=== PATIENT | male | born 1965 | race Caucasian/White ===

== ENCOUNTER 2022-03-16 15:38 | Outpatient (REF) | payer BC, SELFPAY ==
[2022-03-16 19:27] LABS: Alanine Aminotransferase 21 U/L (0-40); Albumin Level 4.1 g/dL (3.5-5.0); Alkaline Phosphatase 71 U/L (39-117); Anion Gap 11 (12-20); Aspartate Amino Transferase 28 U/L (5-37); Bilirubin Total 0.7 mg/dL (0.0-1.0); Blood Urea Nitrogen 9 mg/dL (9-16); Calcium 8.7 mg/dL (8.4-10.2); Carbon Dioxide 26 mmol/L (22-29); Chloride 107 mmol/L (96-108); Cholesterol 206 mg/dL; Estimated Glomerular Filt Rate > 60; Glucose Random 92 mg/dL (60-115); HDL Cholesterol 47 mg/dL; LDL Cholesterol Calculated 145 mg/dl; Potassium 4.6 mmol/L (3.3-5.1); Sodium 139 mmol/L (135-145); Total Protein 6.3 g/dL (6.5-8.0); Triglycerides 73 mg/dL
[2022-03-22 12:03] LABS: Free Prostate Spec Ag 0.4 ng/mL; Percent Free Prostate Spec Ag 27 % (calc) (>25); Prostate Specific Ag Total 1.5 ng/mL (< OR = 4.0)
== END 2022-03-16 15:39 | disposition home or self-care (01) ==
LOC: HO.MANLDS 15:38
PROVIDERS: Visit Provider Physician Assistant
DX: Z00.00 Encounter for general adult medical examination without abnormal findings (principal); Z12.5 Encounter for screening for malignant neoplasm of prostate
CPT/HCPCS: 36415; 80053; 80061; 84154

== ENCOUNTER 2023-05-22 08:51 | Outpatient (REF) | payer BC, SELFPAY ==
[2023-05-22 13:50] LABS: MANUAL DIFF FLAG NO
[2023-05-22 13:58] LABS: Basophils Absolute Auto 0.1 X10*3/uL (0.0-0.2); Basophils Percent Auto 1.2 % (0-2); Eosinophils Absolute Auto 0.1 X10*3/uL (0.0-0.4); Eosinophils Percent Auto 1.4 % (0-4); Hematocrit 48.2 % (42.0-52.0); Hemoglobin 16.4 g/dl (14.0-18.0); Imm Gran Abs Auto 0.01 X10*3/uL (0.00-0.03); Imm Gran Pct Auto 0.2 % (0.0-0.4); Lymphocytes Absolute Auto 1.3 X10*3/uL (1.2-4.9); Lymphocytes Percent Auto 31.7 % (20-40); Mean Corpuscular Hemoglobin 30.5 pg (27.0-33.0); Mean Corpuscular Volume 89.6 fL (80.0-98.0); Mean Platelet Volume 8.6 fL (9.4-12.4); Monocytes Absolute Auto 0.5 X10*3/uL (0.1-1.2); Monocytes Percent Auto 12.3 % (2-11); Neutrophils Absolute Auto 2.2 x10*3/uL (2.0-8.3); Neutrophils Percent Auto 53.2 % (45-73); Platelet Count 249 X10*3/uL (160-400); Red Blood Count 5.38 X10*6/uL (4.60-5.80); Red Cell Distribution Width 13.2 % (11.0-16.0); White Blood Count 4.2 X10*3/uL (4.8-10.8)
[2023-05-22 14:11] LABS: Alanine Aminotransferase 20 U/L (0-40); Albumin Level 4.1 g/dL (3.5-5.0); Alkaline Phosphatase 69 U/L (39-117); Anion Gap 10 (12-20); Aspartate Amino Transferase 25 U/L (5-37); Bilirubin Total 0.7 mg/dL (0.0-1.0); Blood Urea Nitrogen 10 mg/dL (9-16); Calcium 8.9 mg/dL (8.4-10.2); Carbon Dioxide 27 mmol/L (22-29); Chloride 106 mmol/L (96-108); Cholesterol 234 mg/dL (<200); Estimated Glomerular Filt Rate > 60; Glucose Random 97 mg/dL (60-115); HDL Cholesterol 45 mg/dL (>40); LDL Cholesterol Calculated 167 mg/dL (<100); Sodium 139 mmol/L (135-145); Total Protein 6.9 g/dL (6.5-8.0); Triglycerides 110 mg/dL (<150)
[2023-05-22 14:18] LABS: Estimated Average Glucose 108 mg/dL; Hemoglobin A1C 151.4403 umol/L; Hemoglobin A1c % 5.4 % (<6.0)
== END 2023-05-22 08:52 | disposition home or self-care (01) ==
LOC: HO.MANLDS 08:51
PROVIDERS: Visit Provider Physician Assistant
DX: Z00.00 Encounter for general adult medical examination without abnormal findings (principal); Z12.5 Encounter for screening for malignant neoplasm of prostate; Z13.6 Encounter for screening for cardiovascular disorders
CPT/HCPCS: 36415; 80053; 80061; 83036; 84153; 85025

== ENCOUNTER 2024-11-11 08:50 | Outpatient (AMB) | payer BC, SELFPAY ==
--- OUTSIDE RECORDS SUMMARY | 2024-11-11 09:16 | XMS_ITS | Encounter Summary ---
Author Organization [facility] Address [address] [place] [address] [place] [address] Phone Care Team Providers Care Lab Support Service Tech Name Role Phone Haider Wolf DO Primary Care Provider JanineHaider christiansen DO Unavailable Encounter Details Date Type Department Care Team (Latest Contact Info) Description 06/03/2019 Transcribe Orders Virtual Department 30 [place] [address] Filippo Pace MD 30 [place] [address] [email or web address] Abnormal weight loss (Primary Dx) Social History Tobacco Use Types Packs/Day Years Used Date Smoking Tobacco: Never Smokeless Tobacco: Never Alcohol Use Standard Drinks/Week Comments No 0 (1 standard drink = 0.6 oz pur e alcohol) Sex and Gender Information Value Date Recorded Sex Assigned at Male 05/08/2017 8:51 AM EST Legal Sex Male 9:42 PM EDT Gender Identity Male 05/08/2017 8:51 AM EST Sexual Orientation Straight 05/08/2017 8: 51 AM EST documented as of this encounter Plan of Treatment Upcoming Encounters Date Type Department Care Team (Late st Contact Info) Description 12/31/2024 11:30 AM EDT Office Visit [facility] [address] [place] [address] 3rd Floor, [address] [place] [address] Kyree Castillo MD 22 [facility], [address] [place] [address] [id number] documented as of this encounter Results * XR CHEST PA AND LATERAL 2 VIEWS (06/04/2019 10:36 AM EDT) Anatomical Region Laterality Modality Chest Radiographic Nurys ging 06/04/2019 11:0 0 AM EDT Impressions 06/04/2019 11:02 AM EDT No acute pulmonary process. POS: [id number] Narrative 06/04/2019 11:02 AM EDT XR CHEST PA AND LATERAL 2 VIEWS HISTORY: Abnormal weight loss. COMPARISON: Multiple prior chest x-rays, the most recent of which is dated 06/07/2018.. FINDINGS: Lines and Tubes: None. Cardiomediastinum: The cardiac silhouette is normal in size. The mediastinal and hilar contours are normal. Lungs and Pleural: The lungs are clear. No pneumothorax or pleural effusion. Bones and Soft Tissues: No acute abnormality. Procedure Note Denise Gil MD - 06/04/2019 XR CHEST PA AND LATERAL 2 VIEWS HISTORY: Abnormal weight loss. COMPARISON: Multiple prior chest x-rays, the most recent of which isdated 06/07/2018.. FINDINGS: Lines and Tubes: None. Cardiomediastinum: The cardiac silhouette is normal in size. Themediastinal and hilar contours are normal. Lungs and Pleural: The lungs are clear. No pneumothorax or pleuraleffusion. Bones and Soft Tissues: No acute abnormality. IMPRESSION: No acute pulmonary process. POS: [id number] Filippo Pace MD IMG XR CHEST Final Result documented in this encounter Visit Diagnoses Diagnosis Abnormal weight loss- Primary Loss of weight Abnormal weight loss Loss of weight documented in this encounter Care Teams Lab Support Service Tech Relationship Specialty Start Date End Date Haider Wolf DO PCP - General 01/12/17 Haider Wolf DO [address] [place] [address] [email or web address] Insurance Assigned Provider 07/28/1805/06 documented as of this encounter Additional Source Comments The information contained in this document represents components of the legal health record. It is not the complete legal health record.[facility]
== END 2024-11-11 09:06 | disposition home or self-care (01) ==
LOC: HO.HMGAL 08:50
PROVIDERS: PCP Internal Medicine; Visit Provider Registered Nurse Emergency
DX: J30.89 Other allergic rhinitis (principal)
CPT/HCPCS: 95117; 95165

== ENCOUNTER 2024-11-27 08:25 | Outpatient (AMB) | payer BC, SELFPAY ==
--- OUTSIDE RECORDS SUMMARY | 2024-11-27 08:50 | XMS_ITS | Encounter Summary ---
Author Organization [facility] Address [address] [place] [phone] Phone Care Team Providers Care Assistant Warehouse Manager Name Role Phone Haider Wolf DO Primary Care Provider [phone] JanineHaider christiansen DO Unavailable Reason for Referral * MRI/CAT Scan - Closed Specialty Diagnoses / Procedures Referred By Yunior boyce Referred To Contact Radiology Diagnoses Abnormal weight loss Abdominal pain, unspecified abdominal location Procedures CT Abdomen/Pelvis Filippo Pace MD Phone: tel: fax: [email or web address] Referral ID Status Reason Start Date Expiration Date Visits Re quested Visits Authorized [id number] Closed 06/06/2019 10/03/2019 1 1 Encounter Details Date Type Department Care Team (Latest Contact Info) Description 06/07/2019 Transcribe Orders Virtual Department 30 [place] [address] Filippo Pace MD [address] [place] [id number] [email or web address] GERD without esophagitis (Primary Dx); Abnormal weight loss; Abdominal pain, unspecified abdominal location Social History Tobacco Use Types Packs/Day Years [...] Description 12/31/2024 11:30 AM EDT Office Visit [facility] [address] [place] [address] 3rd Floor, [address] [place] [address] Kyree Castillo MD 22 [facility], [address] [place] [address] [email or web address] documented as of this encounter Results * CT ABDOMEN/PELVIS WITH CONTRAST (09/04/2019 3:54 PM EDT) Anatomical Region Laterality Modality Abdomen, Pelvis Computed Tomogra phy 09/04/2019 4:02 PM EDT Impressions 09/04/2019 4:15 PM EDT Chronic hiatal hernia, hepatic hemangiomas, and hepatic and renal cysts. Diverticulosis without evidence of active diverticulitis or other acute intra-abdominal or retroperitoneal pathology. Stable basilar pulmonary nodules. No other significant interval change from 09/21/2017 apparent. TOTAL CTDIvol: 5.50 mGy POS - [id number] Narrative 09/04/2019 4:15 PM EDT COMPARISON: 09/21/2017 CT TECHNIQUE: Helical scanning was performed from the dome of the liver through the inferior pubic rami following intravenous and oral administration of contrast material. Sagittal and coronal reformats generated. Automated exposure control utilized. FINDINGS: There are grossly stable cavernous hemangiomas in the left and right hepatic lobes and a left hepatic lobe cyst. No new hepatic cyst or mass detected. No bile duct dilatation, perihepatic ascites, or choledocholithiasis detected. Portal vein is grossly patent. Spleen and adrenal glands are within normal limits in appearance. There are chronic bilateral renal cortical cysts. No renal mass, hydronephrosis, or perinephric stranding have developed in the interim. Bladder is relatively collapsed but otherwise stable in appearance. Prostate grossly stable. There is a small chronic hiatal hernia. No evidence of small bowel obstruction. Appendix unremarkable in appearance. Moderate amount of colonic stool and gas with scattered descending diverticula but no surrounding inflammatory infiltration to imply acute diverticulitis free fluid collections are seen in the dependent portion of the pelvis. No evidence of aortoiliac aneurysm. No pathologically enlarged mesenteric, para-aortic, iliac chain, or inguinal lymph nodes have developed. No bowel containing abdominal wall hernia. No focal infiltrate or pleural effusion detected at the lung bases. There is a stable 4 mm left lower lobe nodule and 2 mm right lower lobe nodule. Stable upper endplate central compression deformity, possibly representing a large Schmorl's node, at the L4 level with chronic degenerative disc changes present at the lumbosacral junction. No acute traumatic or destructive skeletal lesion apparent. Procedure Note Jf Moya MD - 09/04/2019 COMPARISON: 09/21/2017 CT TECHNIQUE: Helical scanning was performed from the dome of the liverthrough the inferior pubic rami following intravenous and oraladministration of contrast material. Sagittal and coronal reformatsgenerated. Automated exposure control utilized. FINDINGS: There are grossly stable cavernous hemangiomas in the left and righthepatic lobes and a left hepatic lobe cyst. No new hepatic cyst or massdetected. No bile duct dilatation, perihepatic ascites, orcholedocholithiasis detected. Portal vein is grossly patent. Spleen and adrenal glands are within normal limits in appearance. Thereare chronic bilateral renal cortical cysts. No renal mass, hydronephrosis,or perinephric stranding have developed in the interim. Bladder isrelatively collapsed but otherwise stable in appearance. Prostate grosslystable. There is a small chronic hiatal hernia. No evidence of small bowelobstruction. Appendix unremarkable in appearance. Moderate amount ofcolonic stool and gas with scattered descending diverticula but nosurrounding inflammatory infiltration to imply acute diverticulitis freefluid collections are seen in the dependent portion of the pelvis. No evidence of aortoiliac aneurysm. No pathologically enlarged mesenteric,para-aortic, iliac chain, or inguinal lymph nodes have developed. No bowelcontaining abdominal wall hernia. No focal infiltrate or pleural effusion detected at the lung bases. Thereis a stable 4 mm left lower lobe nodule and 2 mm right lower lobenodule. Stable upper endplate central compression deformity, possibly representinga large Schmorl's node, at the L4 level with chronic degenerative discchanges present at the lumbosacral junction. No acute traumatic ordestructive skeletal lesion apparent. IMPRESSION: Chronic hiatal hernia, hepatic hemangiomas, and hepatic and renal cysts.Diverticulosis without evidence of active diverticulitis or other acuteintra-abdominal or retroperitoneal pathology. Stable basilar pulmonarynodules. No other significant interval change from 09/21/2017 apparent. TOTAL CTDIvol: 5.50 mGy POS - [id number] Filippo Pace MD IMG CT ABD/PELVIS Final Resu lt documented in this encounter Visit Diagnoses Diagnosis GERD without esophagitis- Primary Esophageal reflux Abnormal weight loss Loss of weight Abdominal pain, unspecified abdominal location Abnormal weight loss Loss of weight Abdominal pain, unspecified abdominal location documented in this encounter Care Teams Assistant Warehouse Manager Relationship Specialty Start Date End Date Haider Wolf DO [email or web address] PCP - General 01/12/17 Haider Wolf DO [address] [place] [address] Insurance Assigned Provider 07/28/1805/06 documented as of this encounter Additional Source Comments The information contained in this document represents components of the legal health record. It is not the complete legal health record.[facility]
--- OUTSIDE RECORDS SUMMARY | 2024-11-27 08:50 | XMS_ITS | Encounter Summary ---
Author Organization [facility] Address [address] [place] [address] [place] [address] Phone Care Team Providers Care Concrete Boom Pump Operator Name Role Phone Haider Wolf DO Primary Care Provider [phone] Haider Wolf DO Unavailable Encounter Details Date Type Department Care Team (Latest Contact Info) Description 11/01/2021 Transcribe Orders Virtual Department 30 [place] [address] Lacey Mason PA [address] [place] [address] [place] [address] Osteoporosis, unspecified osteoporosis type, unspecified pathological fracture presence (Primary Dx) Social History Tobacco Use Types [...] Description 12/31/2024 11:30 AM EDT Office Visit [facility] [address] [place] [address] 3rd Floor, [address] [place] [address] Kyree Castillo MD [address] [place] [address], [address] [place] [address] [email or web address] documented as of this encounter Results * BD DXA AXIAL (SPINE) WITH HIP (05/25/2022 9:14 AM EST) Anatomical Region Laterality Modality Bone Density Bone Density 05/25/2022 12:1 4 PM EST Impressions 05/25/2022 12:15 PM EST Osteopenia Reference Information: The T-score is the number of standard deviations above or below the standard which is normal for young adults at their peak bone mineral density. The World Health Organization (WHO) interprets the T-scores as follows: Above -1 Normal bone density Between -1 and -2.5 Osteopenia Equal to / or below -2.5 Osteoporosis As a practical clinical guideline, osteopenia may be graded as follows: Mild -1 through -1.5 Moderate -1.6 through -2.0 Severe -2.1 through -2.4 References: 1. NIH Osteoporosis and Related Bone Diseases http://www.osteo.org 2. International Society for Clinical Densitometry http://www.iscd.org 3. National Osteoporosis Foundation http://www.nof.org Narrative 05/25/2022 12:15 PM EST STUDY: DUAL ENERGY X-RAY ABSORPTIOMETRY / DXA REASON FOR EXAM: Male, 56 years old. TECHNIQUE: Bone Mineral Density (BMD) measurements of the lumbar spine and left hip were obtained. COMPARISON: 01/13/2016 FINDINGS: L1-L4 T score: -1.9. This corresponds to osteopenia This represents a 0.9 % increase in bone density compared with prior exam from 01/13/2016. Left femoral neck T score: -2.3. This corresponds to osteopenia Left total hip T score: -1.3. This corresponds to osteopenia This represents a -7 % decrease in bone density compared with prior exam from 01/13/2016. FRAX score: 10 year risk of major osteoporotic fracture 7.9%, 10 year risk of hip fracture 1.6% Procedure Note Agapito Taylor MD - 05/25/2022 STUDY: DUAL ENERGY X-RAY ABSORPTIOMETRY / DXA REASON FOR EXAM: Male, 56 years old. TECHNIQUE: Bone Mineral Density (BMD) measurements of the lumbar spineand left hip were obtained. COMPARISON: 01/13/2016 FINDINGS: L1-L4 T score: -1.9. This corresponds to osteopenia This represents a 0.9 % increase in bone density compared with prior examfrom 01/13/2016. Left femoral neck T score: -2.3. This corresponds to osteopenia Left total hip T score: -1.3. This corresponds to osteopenia This represents a -7 % decrease in bone density compared with prior examfrom 01/13/2016. FRAX score: 10 year risk of major osteoporotic fracture 7.9%, 10 year riskof hip fracture 1.6% IMPRESSION: Osteopenia Reference Information: The T-score is the number of standard deviations above or below thestandard which is normal for young adults at their peak bone mineraldensity. The World Health Organization (WHO) interprets the T-scores asfollows: Above -1 Normal bone density Between -1 and -2.5 Osteopenia Equal to / or below -2.5 Osteoporosis As a practical clinical guideline, osteopenia may be graded as follows: Mild -1 through -1.5 Moderate -1.6 through -2.0 Severe -2.1 through -2.4 References: 1. NIH Osteoporosis and Related Bone Diseases http://www.osteo.org 2. International Society for Clinical Densitometry http://www.iscd.org 3. National Osteoporosis Foundation http://www.nof.org Lacey DALEY IMG BD BONE DENSITY DEXA Fi nal Result documented in this encounter Visit Diagnoses Diagnosis Osteoporosis, unspecified osteoporosis type, unspecified pathological fracture presence- Primary Osteoporosis, unspecified osteoporosis type, unspecified pathological fracture presence documented in this encounter Care Teams Concrete Boom Pump Operator Relationship Specialty Start Date End Date Haider Wolf DO PCP - General 01/12/17 Haider Wolf DO [address] [place] [address] Insurance Assigned Provider 07/28/1805/06 documented as of this encounter Additional Source Comments The information contained in this document represents components of the legal health record. It is not the complete legal health record.[facility]
--- OUTSIDE RECORDS SUMMARY | 2024-11-27 08:50 | XMS_ITS | Encounter Summary ---
Author Organization [facility] Address [address] [place] [address] Phone Care Team Providers Care Belt Loop Machine Operator Name Role Phone Haider Wolf DO Primary Care Provider [phone] JanineHaider christiansen DO Unavailable Encounter Details Date Type Department Care Team (Late st Contact Info) Description 09/03/2021 Procedure Pass [facility] Endoscopy Admitting Dept Virtual Department [address] [place] [phone] Social History Tobacco Use Types Packs/Day Years [...] Description 12/31/2024 11:30 AM EDT Office Visit [facility] [address] [place] [address] 3rd Floor, [address] [place] [address] Kyree Castillo MD 22 [facility], [address] [address] documented as of this encounter Visit Diagnoses Not on filedocumented in this encounter Care Teams Belt Loop Machine Operator Relationship Specialty Start Date End Date Haider Wolf DO [email or web address] PCP - General 01/12/17 Haider Wolf DO [address] [place] [address] [email or web address] Insurance Assigned Provider 07/28/1805/06 documented as of this encounter Additional Source Comments The information contained in this document represents components of the legal health record. It is not the complete legal health record.[facility]
--- OUTSIDE RECORDS SUMMARY | 2024-11-27 08:50 | XMS_ITS | Encounter Summary ---
Author Organization [facility] Address [address] [place] [address] Phone Care Team Providers Care Parachute Accessories Attacher Name Role Phone Haider Wolf DO Primary Care Provider JanineHaider christiansen DO Unavailable Encounter Details Date Type Department Care Team (Late Contact Info) Description 11/15/2017 Procedure Pass [facility] Endoscopy Admitting Dept Virtual Department [address] [place] [address] Social History Tobacco Use Types Packs/Day Years [...] Encounters Date Type Department Care Team (Late Contact Info) Description 12/31/2024 11:30 AM EDT Office Visit [facility] [address] [place] [address] 3rd Floor, [address] [place] [address] Kyree Castillo MD 22 [facility], [address] [address] documented as of this encounter Visit Diagnoses Not on filedocumented in this encounter Care Teams Parachute Accessories Attacher Relationship Specialty Start Date End Date Haider Wolf DO [email or web address] PCP - General 01/12/17 Haider Wolf DO [address] [place] [address] [email or web address] Insurance Assigned Provider 07/28/1805/06 documented as of this encounter Additional Source Comments The information contained in this document represents components of the legal health record. It is not the complete legal health record.[facility]
--- OUTSIDE RECORDS SUMMARY | 2024-11-27 08:50 | XMS_ITS | Encounter Summary ---
Author Organization [facility] Address [address] [place] [address] Phone Care Team Providers Care Travel Counselor Name Role Phone Haider Wolf DO Primary Care Provider [phone] Encounter Details Date Type Department Care Team (Late st Contact Info) Description 05/03/2024 Procedure Pass [facility] Endoscopy Admitting Dept Virtual Department [address] [place] [address] Social History Tobacco Use Types Packs/Day Years Used Date Smoking Tobacco: Never Smokeless Tobacco: Never Alcohol Use Standard Drinks/Week Comments No 0 (1 standard drink = 0.6 oz pur e alcohol) Education Answer Date Recorded Are you interested in more education? Not on suzanna e 07/22/2022 Are you concerned about learning? Not on file 07/22/2022 No 07/22/2022 No 07/22/2022 Digital Access Answer Date Recorded No 08/22/2022 No 08/22/2022 Reliable internet access at home? Not on file 08/22/2022 Device with a working camera? Not on file Intimate Partner Violence Answer Date R ecorded Are you denied basic needs s uch as food, clothing, or medical care? No 05/03/2024 In the past 12 months have y ou been in a relationship with a person who hurts, threatens, or tries to control you? No 05/03/2024 Are you denied basic needs s uch as food, clothing, or medical care? No 05/03/2024 In the past 12 months have y ou been in a relationship with a person who hurts, threatens, or tries to control you? No 05/03/2024 Sex and Gender Information Value Date Recorded Sex Assigned at Male 05/08/2017 8:51 AM EST Legal Sex Male 9:42 PM EDT Gender Identity Male 05/08/2017 8:51 AM EST Sexual Orientation Straight 05/08/2017 8: 51 AM EST documented as of this encounter Plan of Treatment Upcoming Encounters Date Type Department Care Team (Late st Contact Info) Description 12/31/2024 11:30 AM EDT Office Visit [facility] [address] [place] [address] 3rd Floor, [address] [place] [address] Kyree Castillo MD 22 [facility], [address] [place] [address] [email or web address] documented as of this encounter Visit Diagnoses Not on filedocumented in this encounter Care Teams Travel Counselor Relationship Specialty Start Date End Date Haider Wolf DO PCP - General 01/12/17 documented as of this encounter Additional Source Comments The information contained in this document represents components of the legal health record. It is not the complete legal health record.[facility]
--- OUTSIDE RECORDS SUMMARY | 2024-11-27 08:50 | XMS_ITS | Encounter Summary ---
Author Organization [facility] Address [address] [place] [address] [address] [place] [address] Phone Care Team Providers Care Telephone Plant Power Operator Name Role Phone Haider Wolf DO Primary Care Provider [phone] Haider Wolf DO Unavailable Encounter Details Date Type Department Care Team (Latest Contact Info) Description 06/03/2019 Transcribe Orders Virtual Department [address] [place] [address] Filippo Pace MD [address] [place] [address] [email or web address] Abnormal weight loss (Primary Dx) Social History [...] Description 12/31/2024 11:30 AM EDT Office Visit [facility] [address] [place] [address] 3rd Floor, [address] [place] [address] Kyree Castillo MD [address] [place] [address], [address] [place] [address] [email or web address] documented as of this encounter Results * XR CHEST PA AND LATERAL 2 VIEWS (06/04/2019 10:36 AM EDT) Anatomical Region Laterality Modality Chest Radiographic Nurys ging 06/04/2019 11:0 0 AM EDT Impressions 06/04/2019 11:02 AM EDT No acute pulmonary process. POS: [id number] Narrative 06/04/2019 11:02 AM EDT XR CHEST [...] abnormality. IMPRESSION: No acute pulmonary process. POS: [id number] Filippo Pace MD IMG XR CHEST Final Result documented in this encounter Visit Diagnoses Diagnosis Abnormal weight loss- Primary Loss of weight Abnormal weight loss Loss of weight documented in this encounter Care Teams Telephone Plant Power Operator Relationship Specialty Start Date End Date Haider Wolf DO [email or web address] PCP - General 01/12/17 Haider Wolf DO [address] [place] [address] [email or web address] Insurance Assigned Provider 07/28/1805/06 documented as of this encounter Additional Source Comments The information contained in this document represents components of the legal health record. It is not the complete legal health record.[facility]
--- OUTSIDE RECORDS SUMMARY | 2024-11-27 08:50 | XMS_ITS | Clinical Summary ---
Author Organization [facility] Address [address] [place] [address] Phone Care Team Providers Care Leather Craftsman Name Role Phone Fortunato Hawkins DO Primary Care Provider [phone] Allergies Active Allergy Reactions Criticality Noted Date Comments Diazepam 10/13/2022 Naphazo Hcl-Hpm-Ps 80-Zn Sulf 05/02/2024 Other Reaction(s): Not available Medications esomeprazole (NEXIUM) 20 MG capsule Take 20 mg by mouth daily before breakfast. Active latanoprost (XALATAN) 0.005 % ophthalmic solution Active multivit-mins no.63/iron/foli c (M-VIT ORAL) Take by mouth. Active ARNUITY ELLIPTA 200 mcg/actuation DsDvIndications :Asthma,Medicat ion refill USE 1 INHALATION ORALLY DAILY 3 each 3 2 Active albuterol 90 mcg/actuation inhaler Inhale 2 puffs into the lungs every 4 (four) hours as needed for wheezing or shortness of breath/dyspnea. 18 g 11 2 Active budesonide (RHINOCORT AQUA) 32 mcg/actuation nasal spray SHAKE LIQUID AND USE 1 SPRAY IN EACH NOSTRIL EVERY DAY 3 Active fluticasone propionate (FLONASE) 50 mcg/actuation nasal spray 1 spray by Nasal route 2 (two) times a day. 48 g 3 4 Active amLODIPine (NORVASC) 2.5 MG tablet Take 1 tablet by mouth every morning. Active ibuprofen (ADVIL,MOTRIN) 200 MG tablet Take 400 mg by mouth every 6 (six) hours as needed for pain (specific location in comments). Active fluticasone propion-salmete roL (ADVAIR DISKUS) 250-50 mcg/dose DISKUS INHALE 1 DOSE BY MOUTH TWICE DAILY. RINSE MOUTH AFTER USE Active montelukast (SINGULAIR) 10 mg tablet Take 1 tablet by mouth daily. Active Active Problems Problem Noted Date Diagnosed Date Allergic rhinitis 08/29/2022 Sleep apnea 07/25/2022 Overview (05/02/2024): I have mild to severe sleep apnea. Anxiety disorder 06/14/2022 Patent foramen ovale 06/14/2022 Overview (05/02/2024): diagnosed about a decade ago Essential hypertension 05/06/2020 Asthma 05/26/2017 Overview (05/02/2024): Anna Gastroesophageal reflux disease 05/26/2017 Glaucoma 05/26/2017 Osteoporosis 05/26/2017 Overview (05/02/2024): Vit D deficiency > now with osteopenia Stricture of esophagus 05/26/2017 Overview (05/02/2024): Graciela Laura Encounters Date Type Department Care Team Description 09/05/2024 Telephone [facility] [address], [address] [place], [place] [phone] Kyree Castillo MD 09/02/2024 Telephone [facility] [address], [address] [place] [address] Taniya Leos from Last 3 Months Social History Tobacco Use Types Packs/Day Years Used Date Smoking Tobacco: Never Smokeless Tobacco: Never Tobacco Cessation:Counseling Given: Not Answered Alcohol Use Standard Drinks/Week Comments No 0 [...] Orientation Straight 05/08/2017 8: 51 AM EST Last Filed Vital Signs Vital Sign Reading Time Taken Comments Blood Pressure 120/76 06/12/2024 11:07 AM EDT Pulse 91 06/12/2024 11:07 AM EDT Temperature 36.2 C (97.2 F) 05/03/2024 9:20 AM EST Respiratory Rate 17 05/03/2024 9:34 AM EST Oxygen Saturation 96% 06/12/2024 11:07 AM EDT Inhaled Oxygen Concentration - - Weight 84.8 kg (187 lb) 06/12/2024 11:07 AM EDT Height 172.7 cm (5' 8 ) 06/12/2024 11:07 AM EDT Body Mass Index 28.43 06/12/2024 11:07 AM EDT Plan of Treatment Upcoming Encounters Date Type Department Care Team (Late st Contact Info) Description 12/31/2024 11:30 AM EDT Office Visit [facility] [address] [place] [address] [address]rd Floor, [address] [place] [address] Kyree Castillo MD [address] [place] [address], [address] [place] [address] [email or web address] Health Maintenance Due Date Last Done Comments DEPRESSION SCREENING 1975 HEPATITIS C SCREENING 12/09/1981 HIV ONE-TIME SCREENING (18-65 YEARS) 12/09/1981 PNEUMOCOCCAL VACCINES (50+ years) (1 of 2 - PCV) 12/09/1982 COLOGUARD 12/09/2008 FIT TEST 12/09/2008 FOBT 12/09/2008 SIGMOIDOSCOPY 12/09/2008 VIRTUAL COLONOSCOPY 12/09/2008 ZOSTER VACCINES (1 of 2) 12/09/2013 Adult Td,Tdap Booster 11/05/2022 11/05/2012 RSV VACCINE (1 - Risk 60-74 years 1-dose series) 2023 INFLUENZA VACCINE (#1) 2024 , 01/14/2023, 01/12/2022, Additional history exists COVID-19 VACCINE ( - 2024- season) 2024 04/05/2021, 06/02/2020, 05/11/2020 BLOOD PRESSURE 12/13/2024 06/12/2024 SCREENING FOR DIABETES 10/13/2025 10/13/2022 LIPID PANEL 03/16/2027 03/16/2022, 03/16/2022 COLONOSCOPY 01/29/2031 01/29/2021 COLORECTAL CANCER SCREENING 01/29/2031 SMOKING STATUS SCREENING (Once After 26 Yrs) Completed 06/12/2024 HEPATITIS A VACCINES Aged Out No long er eligible based on patient's age to complete this topic HIB VACCINES Aged Out No longer eligi ble based on patient's age to complete this topic MENINGOCOCCAL VACCINES (ACWY) Aged Out No longer eligible based on patient's age to complete this topic MENINGOCOCCAL VACCINES (B) Aged Out N o longer eligible based on patient's age to complete this topic Medical Devices Not on file Procedures Procedure Name Priority Date/Time Associated Diagnosis Comments ENDOSCOPY, COLON 01/29/2021 12:1 9 PM EDT from Last 3 Months or Most Recently Relevant to Health Maintenance Results * ENDOSCOPY, COLON (01/29/2021 12:19 PM EDT) Narrative Transcriptions Filippo Laura MD - 01/29/2021 12:19 PM EDT Patient Name: Main Patriciaulet Attending MD:: FILIPPO LAURA MD Procedure Date: 01/29/2021 12:19 PM Date of : 1965 Age: 55 Admit Type: Outpatient Gender: Male Room: [facility] Referring MD: FORTUNATO HAWKINS DO Exam Type: Colonoscopy Indications: High risk colon cancer surveillance: Personalhistory of colonic polyps, Last colonoscopy: 2015 Medications: Monitored Anesthesia Care Procedure: Informed consent was obtained from the patient after discussion of the indications, limitations, alternatives, benefits, and risks of the procedure. Risks specifically discussed include but are not limited to medication reactions, missed lesions, bleeding, perforation, or the need for emergentsurgery. Throughout the procedure, the patient's bloodpressure, pulse, end-tidal CO2, and oxygen saturations were monitored continuously. The Olympus adult variable colonoscope [id number] #1was introduced through the anus and advanced to the terminal ileum. The colonoscopy was performedwithout difficulty. The patient tolerated the procedurewell. The quality of the bowel preparation was good. Complications: No immediate complications. Estimated blood loss:None. Findings: The perianal and digital rectal examinations were normal. A few small-mouthed diverticula were found in the sigmoid colon. The rectum, recto-sigmoid colon, descending colon, splenic flexure, transverse colon, hepatic flexure, ascending colon, cecum, appendiceal orifice,ileocecal valve, ileum, rectum (on retroflexion) and ascending colon (on retroflexion) appeared normal. Impression: - Diverticulosis in the sigmoid colon. - The rectum, recto-sigmoid colon, descending colon, splenic flexure, transverse colon, hepatic flexure, ascending colon, cecum, appendiceal orifice,ileocecal valve and terminal ileum are normal. - No specimens collected. Recommendation: - Discharge patient to home. - High fiber diet. - Continue present medications. - Repeat colonoscopy in 7 years for surveillance. - You have diverticulosis so please eat a high fiber diet. FILIPPO LAURA MD 01/29/2021 12:36:11 PM This report has been signed electronically. Number of Addenda: 0 Note Initiated On: 01/29/2021 12:19 PM Procedure Code(s): --- Professional --- 40422, Colonoscopy, flexible; diagnostic, including collection of specimen(s) by brushing or washing, when performed (separateprocedure) --- Technical --- 77962, Colonoscopy, flexible; diagnostic, including collection of specimen(s) by brushing or washing, when performed (separateprocedure) Diagnosis Code(s): --- Professional --- Z86.010, Personal history of colonic polyps K57.30, Diverticulosis of large intestine without perforation or abscess without bleeding --- Technical --- Z86.010, Personal history of colonic polyps K57.30, Diverticulosis of large intestine without perforation or abscess without bleeding CPT copyright 2018 [employer]. All rights reserved. The codes documented in this report are preliminary and upon neonatal nurse practitioner reviewmay be revised to meet current compliance requirements. Procedure Date: 01/29/2021 12:19:48 PM [address] [place] [address] us Fortunato A Bigda DO GI PROCEDURE ORDERABLES Final Re sult from Last 3 Months or Most Recently Relevant to Health Maintenance Insurance CROSS OUT OF STATE PPO CROSS OUT OF [facility] PPO OUT OF [facility] PPO BLUE CROSS OUT OF STATE PPO BLUE CROSS OUT OF STATE PPO CROSS OUT OF STATE PPO Care Teams Leather Craftsman Relationship Specialty Start Date End Date Fortunato Hawkins DO [email or web address] PCP - General 01/12/17 Additional Source Comments The information contained in this document represents components of the legal health record. It is not the complete legal health record.[facility]
--- OUTSIDE RECORDS SUMMARY | 2024-11-27 08:50 | XMS_ITS | Encounter Summary ---
Author Organization [facility] Address [address] [place] [address] [place] [address] Phone Care Team Providers Care Correction Officer Supervisor Name Role Phone Haider Wolf DO Primary Care Provider [phone] JanineHaider christiansen DO Unavailable Encounter Details Date Type Department Care Team (Late st Contact Info) Description 09/25/2020 Procedure Pass [facility], Ct Scan - [address] [address] Social History Tobacco Use Types Packs/Day Years [...] Description 12/31/2024 11:30 AM EDT Office Visit [facility] [address] [place] [address] [address]rd Floor, [address] [place] [address] Kyree Castillo MD 22 [facility], [address] [place] [address] documented as of this encounter Visit Diagnoses Not on filedocumented in this encounter Care Teams Correction Officer Supervisor Relationship Specialty Start Date End Date Haider Wolf DO PCP - General 01/12/17 Haider Wolf DO [address] [place] [address] [email or web address] Insurance Assigned Provider 07/28/1805/06 documented as of this encounter Additional Source Comments The information contained in this document represents components of the legal health record. It is not the complete legal health record.[facility]
--- OUTSIDE RECORDS SUMMARY | 2024-11-27 08:50 | XMS_ITS | Encounter Summary ---
Author Organization [facility] Address [address] [place] [address] [place] [address] Phone Care Team Providers Care Construction Producer Name Role Phone Haider Wolf DO Primary Care Provider [phone] Haider Wolf DO Unavailable Encounter Details Date Type Department Care Team (Late Contact Info) Description 09/05/2017 Ancillary Orders Virtual Department [address] [place] [address] Criselda Ernestina, TASNEEM 54 Gurpreet Francois. Ortiz. [address] [place] [address] Other specified disorders of the male genital organs Social History Tobacco Use Types Packs/Day Years [...] Description 12/31/2024 11:30 AM EDT Office Visit [facility] [address] [place] [address] [address]rd Floor, [address] [place] [address] Kyree Castillo MD [address], [address] [place] [address] [email or web address] documented as of this encounter Results * US SCROTUM AND TESTICLES (09/07/2017 2:38 PM EDT) Anatomical Region Laterality Modality Pelvis, Scrotum/Testes, Testes U ltrasound 09/07/2017 4:35 PM EDT Impressions 09/07/2017 4:38 PM EDT Relatively small overall testicular size but otherwise essentially normal scrotal ultrasound. No source of pain is apparent. Tiny simple bilateral hydroceles are unlikely to be clinically significant. POS [id number] Narrative 09/07/2017 4:38 PM EDT No comparison Both testicles are relatively small. The right measures about 8 cc and the left about 9 cc but both are homogeneous in echotexture without any focal masses and with normal, symmetrical blood flow. Neither epididymis is enlarged nor are any epididymal masses or hyperemia present. Very small simple bilateral hydroceles. No varicocele. Procedure Note Catalino Lawler MD - 09/07/2017 No comparison Both testicles are relatively small. The right measures about 8 cc and theleft about 9 cc but both are homogeneous in echotexture without any focalmasses and with normal, symmetrical blood flow. Neither epididymis is enlarged nor are any epididymal masses or hyperemiapresent. Very small simple bilateral hydroceles. No varicocele. IMPRESSION: Relatively small overall testicular size but otherwise essentially normalscrotal ultrasound. No source of pain is apparent. Tiny simple bilateralhydroceles are unlikely to be clinically significant. POS [id number] June Criselda BOATENG IMG US SCROTUM/PENIS Final R esult documented in this encounter Visit Diagnoses Diagnosis Other specified disorders of the male genital organs Other specified disorders of the male genital organs documented in this encounter Care Teams Construction Producer Relationship Specialty Start Date End Date Haider Wolf DO [email or web address] PCP - General 01/12/17 Haider Wolf GianniDO [address] [place] [address] [email or web address] Insurance Assigned Provider 07/28/1805/06 documented as of this encounter Additional Source Comments The information contained in this document represents components of the legal health record. It is not the complete legal health record.[facility]
--- OUTSIDE RECORDS SUMMARY | 2024-11-27 08:50 | XMS_ITS | Encounter Summary ---
Author Organization [facility] Address [address] [place] [address] Phone Care Team Providers Care Superintendent Ammunition Storage Name Role Phone Haider Wolf DO Primary Care Provider [phone] JanineHaider christiansen DO Unavailable Encounter Details Date Type Department Care Team (Late st Contact Info) Description 02/12/2019 Procedure Pass [facility] Endoscopy Admitting Dept Virtual Department [address] [place] [address] Social History Tobacco Use Types Packs/Day Years [...] Description 12/31/2024 11:30 AM EDT Office Visit [facility] [address] [place] [address] [address]rd Floor, [address] [place] [address] Kyree Castillo MD 22 [facility], [address] [address] documented as of this encounter Visit Diagnoses Not on filedocumented in this encounter Care Teams Superintendent Ammunition Storage Relationship Specialty Start Date End Date Haider Wolf DO [email or web address] PCP - General 01/12/17 Haider Wolf DO [address] [place] [address] [email or web address] Insurance Assigned Provider 07/28/1805/06 documented as of this encounter Additional Source Comments The information contained in this document represents components of the legal health record. It is not the complete legal health record.[facility]
--- OUTSIDE RECORDS SUMMARY | 2024-11-27 08:50 | XMS_ITS | Encounter Summary ---
Author Organization [facility] Address [address] [place] [address] [place] [address] Phone Care Team Providers Care Customer Engagement Manager Name Role Phone Haider Wolf DO Primary Care Provider Haider Wolf DO Unavailable Encounter Details Date Type Department Care Team (Latest Contact Info) Description 05/27/2019 Transcribe Orders [facility] [address] [place] [address] Filippo Pace MD 10 [facility] 2 [place] [address] [email or web address] Loss of weight (Primary Dx); Gastroesophageal reflux disease without esophagitis Social History Tobacco Use Types Packs/Day Years [...] Description 12/31/2024 11:30 AM EDT Office Visit [facility] [address] [place] [address] 3rd Floor, [address] [place], [place] [phone] Kyree Castillo MD [address] [place] [address], [address] [place] [address] [email or web address] documented as of this encounter Results * TSH (05/27/2019 1:51 PM EST) Pathologist [facility] TSH 1.37 0.27 - 4.20 uIU/mL [facility] Blood 05/27/2019 1:51 PM EST 05/27/2019 1:57 PM EST us Filippo Pace MD LAB BLOOD ORDERABLES Final R esult [address] [address] * C-Reactive Protein (05/27/2019 1:51 PM EST) [facility] C REACTIVE PROTEIN <0.3 0.0 - 4.0 mg/L [facility] Blood 05/27/2019 1:51 PM EST 05/27/2019 1:57 PM EST us Filippo Pace MD LAB BLOOD ORDERABLES Final R esult [address] [address] * (ABNORMAL) Comprehensive metabolic panel (05/27/2019 1:51 PM EST) [facility] SODIUM 140 133 - 146 mmol/L [facility] POTASSIUM 3.5 3.3 - 5.1 mmol/L [facility] CHLORIDE 104 96 - 108 mmol/L [facility] CO2 24 21 - 35 mmol/L [facility] BUN 8 6 - 19 mg/dL [facility] CREATININE 1.10 0.5 - 1.5 mg/dL [facility] GLUCOSE 125(H) 70 - 99 mg/dL [facility] ALBUMIN 4.6 3.9 - 4.8 g/dL [facility] TOTAL PROTEIN 7.5 6.5 - 8.0 g/dL [facility] CALCIUM 9.3 8.4 - 10.3 mg/dL [facility] ALKALINE PHOSPHATASE 60 39 - 117 U/L [facility] TOTAL BILIRUBIN 0.6 0.0 - 1.2 mg/dL [facility] AST 34 0 - 37 U/L [facility] ALT 17 0 - 40 U/L [facility] GLOBULIN 2.9 1 - 4.8 g/dL [facility] EGFR 75 >59 mL/min/1.7 3m2 [facility] Comment:If patient is black, multiply result by 1.159. Estimated glomerular filtration rate calculated using the CKD-EPI equation. ANION GAP 16 10 - 20 mmol/L [facility] Blood 05/27/2019 1:51 PM EST 05/27/2019 1:57 PM EST us Filippo Pace MD LAB BLOOD ORDERABLES Final R esult Performing Organization Address City/State/[facility] Co de Phone Number [address] [address] * CBC (05/27/2019 1:51 PM EST) WBC 5.57 4.00 - 11.00 K/uL [facility] Comment:Note Reference Range updates to all CBC and Differential results. RBC 5.22 4.23 - 5.82 M/uL [facility] HGB 16.3 13.4 - 17.5 g/dL [facility] Comment:Note updated Referen ce Ranges for all CBC and Differential results. HCT 46.5 37.0 - 51.0 % [facility] PLT 289 140 - 430 K/uL [facility] MCV 89.1 78.0 - 97.0 fL [facility] MCH 31.2 25.0 - 33.0 pg [facility] MCHC 35.1 32.0 - 36.0 g/dL [facility] RDW 12.9 11.0 - 15.0 % [facility] MPV 8.5 8.4 - 12.8 [facility] NRBC 0.00 0 /100 WBCs [facility] ABSOLUTE NRBC 0.00 0 K/uL [facility] Blood 05/27/2019 1:51 PM EST 05/27/2019 1:57 PM EST us Filippo Pace MD LAB BLOOD ORDERABLES Final R esult Performing Organization Address City/[facility]/ZIP Co de Phone Number [address] [address] * Immunoglobulin A (05/27/2019 1:51 PM EST) IgA 202 70 - 400 mg/dL [facility] Blood 05/27/2019 1:51 PM EST 05/27/2019 1:57 PM EST Filippo Pace MD LAB BLOOD ORDERABLES Final R critical [facility] hospital Performing Organization Address [facility] Co de Phone Number [address] [address] * Gliadin deamidated antibody, IgG/IgA (05/27/2019 1:51 PM EST) Gliadin Ab, IGA <10.0 <20.0 (Negative) [facility] GLIADIN AB IGG <10.0 <20.0 (Negative) [facility] [place] [address] Blood 05/27/2019 1:51 PM EST 05/27/2019 1:59 PM EST us Filippo Pace MD LAB BLOOD ORDERABLES Final R esult Performing Organization Address City/[facility]/ZIP Co de Phone Number [facility] [place] [address] * Tissue transglutaminase IgA (05/27/2019 1:51 PM EST) TTG IGA ANTIBODY <1.2 <4.0 (Negative) U/mL [facility] [address] Blood 05/27/2019 1:51 PM EST 05/27/2019 1:59 PM EST us Fliippo Pace MD LAB BLOOD ORDERABLES Final R esult [facility] [address] [place] [address] documented in this encounter Visit Diagnoses Diagnosis Loss of weight- Primary Gastroesophageal reflux disease without esophagitis Esophageal reflux documented in this encounter Care Teams Customer Engagement Manager Relationship Specialty Start Date End Date Haider Wolf DO [email or web address] PCP - General 01/12/17 Haider Wolf DO [address] [place] [address] [email or web address] Insurance Assigned Provider 07/28/1805/06 documented as of this encounter Additional Source Comments The information contained in this document represents components of the legal health record. It is not the complete legal health record.[facility]
--- OUTSIDE RECORDS SUMMARY | 2024-11-27 08:50 | XMS_ITS | Encounter Summary ---
Author Organization [facility] Address [address] [place] [address] [place] [address] Phone Care Team Providers Care Textile Supervisor Name Role Phone Haider Wolf DO Primary Care Provider [phone] JanineHaider christiansen DO Unavailable Encounter Details Date Type Department Care Team (Late st Contact Info) Description 08/28/2019 Procedure Pass [facility], Ct Scan - [address] [address] Social History Tobacco Use Types Packs/Day Years [...] Description 12/31/2024 11:30 AM EDT Office Visit [facility] [address] [place] [address] 3rd Floor, [address] [address] Kyree Castillo MD 22 [facility], [address] [address] documented as of this encounter Visit Diagnoses Not on filedocumented in this encounter Care Teams Textile Supervisor Relationship Specialty Start Date End Date Haider Wolf DO PCP - General 01/12/17 Haider Wolf DO [address] [place] [address] Insurance Assigned Provider 07/28/1805/06 documented as of this encounter Additional Source Comments The information contained in this document represents components of the legal health record. It is not the complete legal health record.[facility]
--- OUTSIDE RECORDS SUMMARY | 2024-11-27 08:50 | XMS_ITS | Encounter Summary ---
Author Organization [facility] Address [address] [place] [address] Phone Care Team Providers Care Advertising Copy Writer Name Role Phone Haider Wolf DO Primary Care Provider [phone] Haider Wolf DO Unavailable Reason for Referral * - Closed Specialty Diagnoses / Procedures Referred By Yunior boyce Referred To Contact Diagnoses Atypical chest pain Procedures Stress Test Exercise Haider Wolf DO Phone: tel: fax: [email or web address]:[email or web address] Referral ID Status Reason Start Date Expiration Date Visits Re quested Visits Authorized [id number] Closed 08/06/2018 08/06/2019 1 1 Encounter Details Date Type Department Care Team (Late st Contact Info) Description 08/06/2018 Ancillary Orders Virtual Department 30 [place] [address] Haider Wolf DO [address] [facility] [place] [address] [email or web address] Atypical chest pain Social History Tobacco Use Types Packs/Day Years [...] Description 12/31/2024 11:30 AM EDT Office Visit [facility] [address] [facility] 3rd Floor, [address] [place] [address] Kyree Castillo MD 22 [facility], [address] [place] [address] [email or web address] documented as of this encounter Results * Stress Test Exercise (08/14/2018 8:49 AM EDT) Max BP Systolic 156 mmHg [facility] Max BP Diastolic 78 mmHg [facility] Max HR 157 BPM [facility] Resting HR 92 BPM [facility] Resting BP Systolic 120 mmHg [facility] Resting BP Diastolic 84 mmHg [facility] Peak METS 10.1 METS [facility] Peak HR 157 BPM [facility] Anatomical Region Laterality Modality Heart Other 08/14/2018 8:19 AM EDT 08/14/2018 8:48 AM EDT Narrative 08/23/2018 1:58 PM EDT There was no electrocardiographic evidence of myocardial ischemia at a diagnostic workload. Clinically, this is low risk study. Stress Findings There was no evidence of myocardial ischemia at a diagnostic workload. Clinically, this is a low risk study. Response to Stress The patient exercised for minutes seconds, achieving 10.1 METS at peak exercise. Baseline blood pressure was 120/84 mmHg, and baseline heart rate was 92 bpm. The patient achieved a peak heart rate of 157 bpm, which is% of their maximum predicted heart rate. Pt exercised for 8:02 min on a GASPER protocol achieving 10.1 METS. Test terminated due to fatigue. Baseline resting HR was 82. Max heart rate achieved was 157 (94% MPHR). 1. EKG - Baseline EKG showed normal sinus rhythm. No ischemic EKG changes. 2. SYMPTOMS - no chest pain 3. EXERCISE PHYSIOLOGY - normal BP response to exercise. Normal functional capacity for age. 4. ARRHYTHMIAS - none 5. DELATORRE TREADMILL SCORE: 8 (low risk of cardiac events) Conclusion - no EKG evidence of ischemia Krupa Berrios NP. Haider Wolf DO CV STRESS ORDERABLES Final Resul t documented in this encounter Visit Diagnoses Diagnosis Atypical chest pain Other chest pain Atypical chest pain Other chest pain documented in this encounter Care Teams Advertising Copy Writer Relationship Specialty Start Date End Date Haider Wolf DO PCP - General 01/12/17 Haider Wolf DO [address] [place] [address] Insurance Assigned Provider 07/28/1805/06 documented as of this encounter Additional Source Comments The information contained in this document represents components of the legal health record. It is not the complete legal health record.[facility]
--- OUTSIDE RECORDS SUMMARY | 2024-11-27 08:50 | XMS_ITS | Encounter Summary ---
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 Procedures CT Face CHG CT SCAN,MAXILLOFACIAL AREA,W/O CONTRAST CHG CT SCAN, FACE/JAW CONTRAST CHG CT SCANS FACE/JAW COMBO Lacey Mason PA Phone: tel: fax: Referral ID Status Reason Start Date Expiration Date Visits Re quested Visits Authorized [id number] Closed 06/04/2021 07/03/2021 1 1 Encounter Details Date Type Department Care Team (Latest Contact Info) Description 09/25/2020 Transcribe Orders Virtual Department [address] [place] [address] Lacey Mason PA [address] [place] [address] [place] [address] 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 (Primary Dx) Social History Tobacco Use Types [...] Description 12/31/2024 11:30 AM EDT Office Visit [facility] [address] [place] [address] 3rd Floor, [address] [place] [address] Kyree Castillo MD 22 [facility], [address] [place], [place] [id number] [email or web address] documented as of this encounter Results * CT FACE (SINUS) WITHOUT CONTRAST (06/08/2021 6:32 PM EDT) Anatomical Region Laterality Modality Face Computed Tomogra phy 06/09/2021 6:54 AM EDT Impressions 06/09/2021 7:02 AM EDT No mucus retention cyst. Findings suggestive of odontogenic maxillary sinus disease with periapical lucency at the right maxillary second molar (ADA #2). Additional periapical lucency at the left maxillary second molar (ADA #16). Narrative 06/09/2021 7:[address] FACE (SINUS) WITHOUT CONTRAST TECHNIQUE: Multidetector-row CT of the sinuses was performed without intravenous contrast using tailored dose modulation techniques. Images were reconstructed in the axial, coronal, and sagittal planes. COMPARISON: None FINDINGS: Frontal sinuses and frontoethmoidal junctions: Mild mucosal thickening at the inferior (right greater than left) frontal sinuses with patent frontoethmoidal junctions. Anterior and posterior ethmoid air cells: Minimal mucosal thickening in the anterior ethmoid air cells. Maxillary sinuses and infundibula: Mild mucosal thickening at the inferior right maxillary sinus. Sphenoid sinuses and sphenoethmoidal recesses: Clear. Nasal cavity: Right juliana bullosa. Mild serpentine curvature of the nasal septum. Imaged teeth: Periapical lucency at the right maxillary first molar (ADA #2) with focal discontinuity of the adjacent maxillary sinus floor. Additional periapical lucency at the left maxillary second molar (ADA #16). Mastoid air cells and middle ear cavities: Clear. Temporomandibular joints: No significant degenerative remodeling. Brain: Images of the brain parenchyma are not of diagnostic quality for the soft tissues. No focal abnormality is visible with this technique. Orbits and globes: No abnormality. Procedure Note Frank Serrano MD - 06/09/2021 CT FACE (SINUS) WITHOUT CONTRAST TECHNIQUE: Multidetector-row CT of the sinuses was performed withoutintravenous contrast using tailored dose modulation techniques. Imageswere reconstructed in the axial, coronal, and sagittal planes. COMPARISON: None FINDINGS: Frontal sinuses and frontoethmoidal junctions: Mild mucosal thickening atthe inferior (right greater than left) frontal sinuses with patentfrontoethmoidal junctions. Anterior and posterior ethmoid air cells: Minimal mucosal thickening inthe anterior ethmoid air cells. Maxillary sinuses and infundibula: Mild mucosal thickening at the inferiorright maxillary sinus. Sphenoid sinuses and sphenoethmoidal recesses: Clear. Nasal cavity: Right juliana bullosa. Mild serpentine curvature of the nasalseptum. Imaged teeth: Periapical lucency at the right maxillary first molar (ADA#2) with focal discontinuity of the adjacent maxillary sinus floor.Additional periapical lucency at the left maxillary second molar (ADA#16). Mastoid air cells and middle ear cavities: Clear. Temporomandibular joints: No significant degenerative remodeling. Brain: Images of the brain parenchyma are not of diagnostic quality forthe soft tissues. No focal abnormality is visible with this technique. Orbits and globes: No abnormality. IMPRESSION: No mucus retention cyst. Findings suggestive of odontogenic maxillary sinus disease with periapicallucency at the right maxillary second molar (ADA #2). Additionalperiapical lucency at the left maxillary second molar (ADA #16). 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 It is not the complete legal health record.[facility]
--- OUTSIDE RECORDS SUMMARY | 2024-11-27 08:50 | XMS_ITS | Encounter Summary ---
Author Organization [facility] Address [address] [place] [address] [place] [address] Phone Care Team Providers Care Correctional Supervising Cook Name Role Phone Haider Wolf DO Primary Care Provider [phone] Haider Wolf DO Unavailable Encounter Details Date Type Department Care Team (Latest Contact Info) Description 09/13/2017 Transcribe Orders [facility] [address]nd [place] [address] Filippo Pace MD 10 [facility] 2 [place] [address] [email or web address] Bowel habit changes (Primary Dx); Abdominal pain, right lower quadrant Social History Tobacco Use Types Packs/Day Years [...] Description 12/31/2024 11:30 AM EDT Office Visit [facility] [address] [place] [address] 3rd Floor, [address] [place], [place] [phone] Kyree Castillo MD [address] [place] [address], [address] [place] [address] [email or web address] documented as of this encounter Results * (ABNORMAL) Urinalysis (09/13/2017 10:50 AM EDT) COLOR Yellow Yellow [facility] CLARITY Clear [facility] GLUCOSE Negative Negative [facility] BILI Negative Negative [facility] KETONES Negative Negative [facility] SPECIFIC GRAVITY 1.020 1.005 - 1.030 [facility] BLOOD Trace(A) Negative [facility] PH 7.0 5.0 - 8.0 [facility] Protein-UA Negative Negative [facility] NITRITE Negative Negative [facility] Leukocyte esterase, ur Negative Negative [facility] Urine (Urine) 09/13/2017 10: 50 AM EDT 09/13/2017 11:12 AM EDT us Filippo Pace MD URINE ORDERABLES Final Resul t Performing Organization Address [facility] Co de Phone Number [address] [address] * C-Reactive Protein (09/13/2017 10:50 AM EDT) Pathologist [facility] C REACTIVE PROTEIN <0.3 0.0 - 4.0 mg/L [facility] Comment:New Reference Range and Measuring Units effective 08/09/17. Blood 09/13/2017 10:5 0 AM EDT 09/13/2017 10:58 AM EDT us Filippo Pace MD LAB BLOOD ORDERABLES Final R esult Performing Organization Address City/[facility]/ZIP Co de Phone Number [address] [address] * (ABNORMAL) Comprehensive metabolic panel (09/13/2017 10:50 AM EDT) Pathologist [facility] SODIUM 139 133 - 146 mmol/L [facility] POTASSIUM 4.1 3.3 - 5.1 mmol/L [facility] CHLORIDE 102 96 - 108 mmol/L [facility] CO2 27 21 - 35 mmol/L [facility] BUN 8 6 - 19 mg/dL [facility] CREATININE 1.20 0.5 - 1.5 mg/dL [facility] GLUCOSE 105(H) 70 - 99 mg/dL [facility] ALBUMIN 4.0 3.9 - 4.8 g/dL [facility] TOTAL PROTEIN 6.7 6.5 - 8.0 g/dL [facility] CALCIUM 8.6 8.4 - 10.3 mg/dL [facility] ALKALINE PHOSPHATASE 73 39 - 117 U/L [facility] TOTAL BILIRUBIN 0.4 0.0 - 1.2 mg/dL [facility] AST 22 0 - 37 U/L [facility] ALT 16 0 - 40 U/L [facility] GLOBULIN 2.7 1 - 4.8 g/dL [facility] EGFR 69 >59 mL/min/1.7 3m2 [facility] Comment:If patient is black, multiply result by 1.159. Estimated glomerular filtration rate calculated using the CKD-EPI equation. ANION GAP 14 10 - 20 mmol/L [facility] Blood 09/13/2017 10:5 0 AM EDT 09/13/2017 10:58 AM EDT us Filippo Pace MD LAB BLOOD ORDERABLES Final R esult [facility] [address] [place] [address] * (ABNORMAL) CBC (09/13/2017 10:50 AM EDT) WBC 4.58 3.40 - 11.20 K/uL [facility] RBC 4.92 4.50 - 5.50 M/uL [facility] HGB 15.3 13.0 - 17.0 g/dL [facility] HCT 43.9 40.0 - 51.0 % [facility] PLT 242 130 - 400 K/uL [facility] MCV 89.2 79.0 - 98.0 fL [facility] MCH 31.1 27.0 - 34.8 pg [facility] MCHC 34.9 31.5 - 36.0 g/dL [facility] RDW 12.9 10.8 - 14.6 % [facility] MPV 8.4(L) 9.4 - 12.4 fl [facility] NRBC 0.00 /100 WBCs [facility] ABSOLUTE NRBC 0.00 K/uL [facility] Blood 09/13/2017 10:5 0 AM EDT 09/13/2017 10:58 AM EDT us Filippo Pace MD LAB BLOOD ORDERABLES Final R esult Performing Organization Address City/State/[facility] Co de Phone Number [facility] [address] [place] [address] documented in this encounter Visit Diagnoses Diagnosis Bowel habit changes- Primary Other symptoms involving digestive system Abdominal pain, right lower quadrant documented in this encounter Care Teams Correctional Supervising Cook Relationship Specialty Start Date End Date Haider Wolf DO PCP - General 01/12/17 Haider Wolf DO [address] [place] [address] Insurance Assigned Provider 07/28/1805/06 documented as of this encounter Additional Source Comments The information contained in this document represents components of the legal health record. It is not the complete legal health record.[facility]
--- OUTSIDE RECORDS SUMMARY | 2024-11-27 08:50 | XMS_ITS | Encounter Summary ---
Author Organization [facility] Address [address] [place] [address] Phone Care Team Providers Care Double End Chucking Machine Operator Name Role Phone Haider Wolf DO Primary Care Provider [phone] JanineHaider christiansen Unavailable Reason for Referral * MRI/CAT Scan - Closed Specialty Diagnoses / Procedures Referred By Yunior boyce Referred To Contact Radiology Diagnoses RLQ abdominal pain Change in bowel habits Procedures CT Abdomen/Pelvis Filippo Pace MD Phone: tel: fax: mailto:[email or web address] Referral ID Status Reason Start Date Expiration Date Visits Re quested Visits Authorized [id number] Closed 09/13/2017 11/12/2017 1 1 Encounter Details Date Type Department Care Team (Late st Contact Info) Description 09/13/2017 Ancillary Orders Virtual Department [address] [place] [address] Filippo Pace MD [address] [place] [phone] [email or web address] RLQ abdominal pain; Change in bowel habits Social History Tobacco Use Types Packs/Day Years [...] Description 12/31/2024 11:30 AM EDT Office Visit [facility] [address] [place] [address] 3rd Floor, [address] [place] [address] Kyree Castillo MD 22 [facility], [address] [place], [place] [id number] [email or web address] documented as of this encounter Results * CT ABDOMEN/PELVIS WITH CONTRAST (09/21/2017 12:54 PM EDT) Anatomical Region Laterality Modality Abdomen, Pelvis Computed Tomogra phy 09/21/2017 2:34 PM EDT Impressions 09/21/2017 3:14 PM EDT Multiple hepatic hemangiomata. No evidence of appendicitis. Renal cysts and hepatic cyst. No specific source of right lower quadrant pain identified. Moderate hiatal hernia. TOTAL CTDIvol: 15.8 mGy POS - [id number] Edited by: Kate Hunt on 09/21/2017 2:57 PM Narrative 09/21/2017 3:14 PM EDT HISTORY: Right lower quadrant pain and change in bowel habits COMPARISON: None TECHNIQUE: After the administration of oral and intravenous contrast, multidetector CT is obtained from dome of the liver through the inferior pubic rami. Sagittal and coronal reformats generated. Automated exposure control utilized. FINDINGS: Lung bases: Some from a millimeter lower lobe left pulmonary nodule. Absent a strong smoking history or other risk factors, no further follow-up would be required. No pleural effusion or pericardial effusion. Liver and spleen: There is a cyst in the dome of the left hepatic lobe measuring 12 mm and just below this there is a mass with peripheral puddling and largely fills in on delayed imaging consistent with hemangioma. A third mass is seen in the posterior segment right hepatic lobe below the dome at the posterior periphery measuring 12 mm. On the axials peripheral puddling is difficult to delineate definitively but on the coronal reformats it does appear to be posterior peripheral centripetal filling and this becomes nearly isodense to liver on delayed imaging and is also consistent with a hemangioma. No clearly worrisome lesions. Spleen unremarkable. Biliary tree and pancreas: No findings of concern. Adrenals and : No adrenal masses. Bilateral renal cysts including a bilobed cyst on the right at the lower pole. No worrisome masses. No stones. Bladder, prostate and seminal vesicles demonstrate no clear finding of concern. Bowel: Stomach and duodenum unremarkable aside from moderate size hiatal hernia. Jejunal and ileal patterns unremarkable. Terminal ileum unremarkable. There is left colonic diverticulosis without evidence of diverticulitis or colitis. Appendix unremarkable aside from retrocecal positioning. Nodes: No adenopathy detected. Vascular: No findings of concern. Soft tissues: No ascites, inflammatory change or fluid collection. No bowel-containing hernias. Bones: Concavity superior endplate L4 with disc within. Degenerative disc disease at L5-S1 of moderately advanced degree. No gross lytic or blastic change or bony destructive lesions. Mild cam impingement changes proximal left femur. Procedure Note Kassy Chavez MD - 09/21/2017 HISTORY: Right lower quadrant pain and change in bowel habits COMPARISON: None TECHNIQUE: After the administration of oral and intravenous contrast,multidetector CT is obtained from dome of the liver through the inferiorpubic rami. Sagittal and coronal reformats generated. Automated exposurecontrol utilized. FINDINGS: Lung bases: Some from a millimeter lower lobe left pulmonary nodule.Absent a strong smoking history or other risk factors, no furtherfollow-up would be required. No pleural effusion or pericardialeffusion. Liver and spleen: There is a cyst in the dome of the left hepatic lobemeasuring 12 mm and just below this there is a mass with peripheralpuddling and largely fills in on delayed imaging consistent withhemangioma. A third mass is seen in the posterior segment right hepaticlobe below the dome at the posterior periphery measuring 12 mm. On theaxials peripheral puddling is difficult to delineate definitively but onthe coronal reformats it does appear to be posterior peripheralcentripetal filling and this becomes nearly isodense to liver on delayedimaging and is also consistent with a hemangioma. No clearly worrisomelesions. Spleen unremarkable. Biliary tree and pancreas: No findings of concern. Adrenals and : No adrenal masses. Bilateral renal cysts including abilobed cyst on the right at the lower pole. No worrisome masses. Nostones. Bladder, prostate and seminal vesicles demonstrate no clearfinding of concern. Bowel: Stomach and duodenum unremarkable aside from moderate size hiatalhernia. Jejunal and ileal patterns unremarkable. Terminal ileumunremarkable. There is left colonic diverticulosis without evidence ofdiverticulitis or colitis. Appendix unremarkable aside from retrocecalpositioning. Nodes: No adenopathy detected. Vascular: No findings of concern. Soft tissues: No ascites, inflammatory change or fluid collection. Nobowel- containing hernias. Bones: Concavity superior endplate L4 with disc within. Degenerative discdisease at L5-S1 of moderately advanced degree. No gross lytic or blasticchange or bony destructive lesions. Mild cam impingement changes proximalleft femur. IMPRESSION: Multiple hepatic hemangiomata. No evidence of appendicitis. Renal cystsand hepatic cyst. No specific source of right lower quadrant painidentified. Moderate hiatal hernia. TOTAL CTDIvol: 15.8 mGy POS - [id number] Edited by: Kate Hunt on 09/21/2017 2:57 PM Filippo Pace MD IMG CT ABD/PELVIS Final Resu lt documented in this encounter Visit Diagnoses Diagnosis RLQ abdominal pain Abdominal pain, right lower quadrant Change in bowel habits Other symptoms involving digestive system RLQ abdominal pain Abdominal pain, right lower quadrant Change in bowel habits Other symptoms involving digestive system documented in this encounter Care Teams Double End Chucking Machine Operator Relationship Specialty Start Date End Date Haider Wolf DO PCP - General 01/12/17 Haider Wolf DO [address] [place] [address] [email or web address] Insurance Assigned Provider 07/28/1805/06 documented as of this encounter Additional Source Comments The information contained in this document represents components of the legal health record. It is not the complete legal health record.[facility]
--- OUTSIDE RECORDS SUMMARY | 2024-11-27 08:50 | XMS_ITS | Encounter Summary ---
Author Organization [facility] Address [address] [place] [address] [place] [address] Phone Care Team Providers Care Paper And Prints Restorer Name Role Phone Haider Wolf DO Primary Care Provider [phone] Haider Wolf DO Unavailable Encounter Details Date Type Department Care Team (Latest Contact Info) Description 03/16/2022 Transcribe Orders Virtual Department [address] [place] [address] Lacey Mason PA [address] [place] [address] [place] [address] Left shoulder pain, unspecified chronicity (Primary Dx) Social History Tobacco Use Types [...] Description 12/31/2024 11:30 AM EDT Office Visit [facility] [address] [place] [address] [address] [facility], [address] [place] [address] Kyree Castillo MD 22 [facility] 301 [place] [address] [email or web address] documented as of this encounter Visit Diagnoses Diagnosis Left shoulder pain, unspecified chronicity- Primary documented in this encounter Care Teams Paper And Prints Restorer Relationship Specialty Start Date End Date Haider Wolf DO [email or web address] PCP - General 01/12/17 Haider Wolf DO [address] [place] [address] [email or web address] Insurance Assigned Provider 07/28/1805/06 documented as of this encounter Additional Source Comments The information contained in this document represents components of the legal health record. It is not the complete legal health record.[facility]
--- OUTSIDE RECORDS SUMMARY | 2024-11-27 08:50 | XMS_ITS | Encounter Summary ---
Author Organization [facility] Address [address] [place] [address] [place] [address] Phone Care Team Providers Care Household Appliance Repairer Name Role Phone Haider Wolf DO Primary Care Provider [phone] Haider Wolf DO Unavailable Encounter Details Date Type Department Care Team (Late Contact Info) Description 01/25/2018 Ancillary Orders Virtual Department 30 [place] [address] Criselda Ernestina, TASNEEM 54 Gurpreet Francois. Ortiz. [address] [place] [address] Tachycardia Social History Tobacco Use Types Packs/Day Years [...] Description 12/31/2024 11:30 AM EDT Office Visit [facility] [address] [place] [address] 3rd Floor, [address] [place] [address] Kyree Castillo MD 22 [facility], [address] [place] [address] [email or web address] documented as of this encounter Results * Holter Monitor 24 Hours (02/02/2018 12:15 PM EST) Total Beats 124,795 [facility] Ventricular Ectopy Total Beats 1 [facility] Ventricular Ectopy Single Beats 1 [facility] Ventricular Pair 0 [facility] Ventricular Runs 0 [facility] Supraventricular Total Beats 4 [facility] Supraventricular Ectopic Single Beats 4 [facility] Supraventricular Pairs 0 [facility] Supraventricular Runs 0 [facility] Mean Heart Rate 87 BPM [facility] Maximum Heart Rate 129 BPM [facility] Minimum Heart Rate 49 BPM [facility] Longest RR 1.600 S [facility] Anatomical Region Laterality Modality Heart Other 02/01/2018 9:20 AM EST 02/02/2018 12:07 PM EST Narrative 02/03/2018 12:53 AM EST Normal 24-hr Holter Monitor Holter Monitor Main Form Hookup date: 02/01/2018 Scan date: 02/02/2018 Start time: 09:20 Analysis time: 24 hr 0 min The predominant rhythm is sinus rhythm. Mean HR: 87 bpm Max HR: at 17:22 on 02/01/2018 129 bpm Min HR: at 05:18 on 02/02/2018 49 bpm Ventricular ectopic beats - total: 1 Ventricular ectopic beats - singles: 1 Ventricular ectopic beats - pairs: 0 Ventricular ectopic beats - runs: 0 Supraventricular ectopic beats - total: 4 Supraventricular ectopic beats - singles: 4 Supraventricular ectopic beats - pairs: 0 Supraventricular ectopic beats - runs: 0 No atrial fibrillation observed. No atrial flutter observed. Longest R-R interval at 18:17 on 02/01/20181.600 sec Diary submitted. No symptoms reported. June Criselda [facility]AT[facility] ORDERABL ES Final Result documented in this encounter Visit Diagnoses Diagnosis Tachycardia Unspecified tachycardia Tachycardia Unspecified tachycardia documented in this encounter Care Teams Household Appliance Repairer Relationship Specialty Start Date End Date Haider Wolf DO [email or web address] PCP - General 01/12/17 Haider Wolf DO [address] [place] [address] [email or web address] Insurance Assigned Provider 07/28/1805/06 documented as of this encounter Additional Source Comments The information contained in this document represents components of the legal health record. It is not the complete legal health record.[facility]
--- OUTSIDE RECORDS SUMMARY | 2024-11-27 08:50 | XMS_ITS | Encounter Summary ---
Author Organization [facility] Address [address] [place] [address] Phone Care Team Providers Care Metal Grinder Name Role Phone Haider Wolf DO Primary Care Provider [phone] JanineHaider christiansen DO Unavailable Encounter Details Date Type Department Care Team (Late st Contact Info) Description 09/13/2017 Procedure Pass [facility], Ct Scan - [address] [address] Social History Tobacco Use Types Packs/Day Years [...] Description 12/31/2024 11:30 AM EDT Office Visit [facility] [address] [place] [address] 3rd Floor, [address] [place] [address] Kyree Castillo MD 22 [facility], [address] [place] [address] documented as of this encounter Visit Diagnoses Not on filedocumented in this encounter Care Teams Metal Grinder Relationship Specialty Start Date End Date Haider Wolf DO [email or web address] PCP - General 01/12/17 Haider Wolf DO [address] [place] [address] [email or web address] Insurance Assigned Provider 07/28/1805/06 documented as of this encounter Additional Source Comments The information contained in this document represents components of the legal health record. It is not the complete legal health record.[facility]
--- OUTSIDE RECORDS SUMMARY | 2024-11-27 08:50 | XMS_ITS | Encounter Summary ---
Author Organization [facility] Address [address] [place] [address] Phone Care Team Providers Care Group Captain Name Role Phone Haider Wolf DO Primary Care Provider [phone] JanineHaider christiansen DO Unavailable Encounter Details Date Type Department Care Team (Late Contact Info) Description 02/14/2017 Procedure Pass [facility] Admitting Dept Virtual Department [address] [place] [address] Social History Tobacco Use Types Packs/Day Years [...] Description 12/31/2024 11:30 AM EDT Office Visit [facility] [address] [place] [address] 3rd Floor, [address] [place] [address] Kyree Castillo MD 22 [facility], [address] [address] documented as of this encounter Visit Diagnoses Not on filedocumented in this encounter Care Teams Group Captain Relationship Specialty Start Date End Date Haider Wolf DO [email or web address] PCP - General 01/12/17 Haider Wolf DO [address] [place] [address] [email or web address] Insurance Assigned Provider 07/28/1805/06 documented as of this encounter Additional Source Comments The information contained in this document represents components of the legal health record. It is not the complete legal health record.[facility]
--- OUTSIDE RECORDS SUMMARY | 2024-11-27 08:50 | XMS_ITS | Encounter Summary ---
Author Organization [facility] Address [address] [place] [address] Phone Care Team Providers Care Food Preparation Supervisor Name Role Phone Haider Wolf DO Primary Care Provider [phone] JanineHaider christiansen DO Unavailable Encounter Details Date Type Department Care Team (Late st Contact Info) Description 01/29/2021 Procedure Pass [facility]oscopy Admitting Dept Virtual Department [address] [place] [address] Social History Tobacco Use Types Packs/Day Years [...] Description 12/31/2024 11:30 AM EDT Office Visit [facility] [address] [place] [address] 3rd Floor, [address] [place] [address] Kyree Castillo MD 22 [facility], [address] [address] documented as of this encounter Visit Diagnoses Not on filedocumented in this encounter Care Teams Food Preparation Supervisor Relationship Specialty Start Date End Date Haider Wolf DO PCP - General 01/12/17 Haider Wolf DO [address] [place] [address] Insurance Assigned Provider 07/28/1805/06 documented as of this encounter Additional Source Comments The information contained in this document represents components of the legal health record. It is not the complete legal health record.[facility]
== END 2024-11-27 08:52 | disposition home or self-care (01) ==
LOC: HO.HMGAL 08:25
PROVIDERS: PCP Internal Medicine; Visit Provider Registered Nurse Emergency
DX: J30.89 Other allergic rhinitis (principal)
CPT/HCPCS: 95117; 95165

== ENCOUNTER 2024-12-09 09:11 | Outpatient (AMB) | payer BC, SELFPAY ==
--- OUTSIDE RECORDS SUMMARY | 2024-12-09 10:47 | XMS_ITS | Encounter Summary ---
Author Organization [facility] Address [address] [place] [address] Phone Care Team Providers Care Director Clinical Applications Name Role Phone Haider Wolf DO Primary Care Provider [phone] LucianoHaider DO Unavailable Reason for Referral * [...] Expiration Date Visits Re quested Visits Authorized [id number] Closed 06/04/2021 07/03/2021 1 1 Encounter Details Date Type Department Care Team (Latest Contact Info) Description 09/25/2020 Transcribe Orders Virtual Department [address] [place] [address] Lacey Mason PA [address] [place] [address] [place] [address] 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 [...] Description 12/31/2024 11:30 AM EDT Office Visit [facility] [address] [place] [address] 3rd Floor, [address] [place] [address] Kyree Castillo MD 22 [facility], [address] [place], [place] [address] [email or web address] documented as of this encounter Results [...] sinus documented in this encounter Care Teams Director Clinical Applications Relationship Specialty Start Date End Date Haider Wolf DO [email or web address] PCP - General 01/12/17 Haider Wolf DO [address] [place] [address] Insurance Assigned Provider 07/28/1805/06 documented as of this encounter Additional Source Comments The information contained in this document represents components of the legal health record. It is not the complete legal health record.[facility]
--- OUTSIDE RECORDS SUMMARY | 2024-12-09 10:47 | XMS_ITS | Encounter Summary ---
Author Organization [facility] Address [address] [place] [address] [place] [address] Phone Care Team Providers Care Communications Specialist Name Role Phone Haider Wolf DO Primary Care Provider [phone] JanineHaider christiansen DO Unavailable Encounter Details Date Type Department Care Team (Late st Contact Info) Description 08/28/2019 Procedure Pass [facility], Ct Scan - [address] [address] Social History Tobacco Use Types Packs/Day Years [...] Description 12/31/2024 11:30 AM EDT Office Visit [facility] [address] [place] [address] 3rd Floor, [address] [place] [address] Kyree Castillo MD 22 [facility], [address] [place] [address] documented as of this encounter Visit Diagnoses Not on filedocumented in this encounter Care Teams Communications Specialist Relationship Specialty Start Date End Date Haider Wolf DO [email or web address] PCP - General 01/12/17 Haider Wolf DO [address] [place] [address] [email or web address] Insurance Assigned Provider 07/28/1805/06 documented as of this encounter Additional Source Comments The information contained in this document represents components of the legal health record. It is not the complete legal health record.[facility]
--- OUTSIDE RECORDS SUMMARY | 2024-12-09 10:47 | XMS_ITS | Encounter Summary ---
Author Organization [facility] Address [address] [place] [address] [place] [address] Phone Care Team Providers Care Physician Internist Name Role Phone Haider Wolf DO Primary Care Provider [phone] Haider Wolf DO Unavailable Encounter Details Date Type Department Care Team (Latest Contact Info) Description 11/01/2021 Transcribe Orders Virtual Department 30 [place] [address] Lacey Mason PA [address] [place] [address] [place] [address] Osteoporosis, unspecified osteoporosis type, unspecified pathological fracture [...] Description 12/31/2024 11:30 AM EDT Office Visit [facility] [address] [place] [address] 3rd Floor, [address] [place] [address] Kyree Castillo MD [address] [place] [address], [address] [place] [address] [email or web address] documented as of this encounter Results * [...] presence documented in this encounter Care Teams Physician Internist Relationship Specialty Start Date End Date Haider Wolf DO PCP - General 01/12/17 Haider Wolf DO [address] [place] [address] Insurance Assigned Provider 07/28/1805/06 documented as of this encounter Additional Source Comments The information contained in this document represents components of the legal health record. It is not the complete legal health record.[facility]
--- OUTSIDE RECORDS SUMMARY | 2024-12-09 10:47 | XMS_ITS | Encounter Summary ---
Author Organization [facility] Address [address] [place] [address] [place] [address] Phone Care Team Providers Care Inclusion Intern Name Role Phone Haider Wolf DO Primary Care Provider [phone] JanineHaider christiansen DO Unavailable Encounter Details Date Type Department Care Team (Late st Contact Info) Description 09/25/2020 Procedure Pass [facility], Ct Scan - [address] [address] Social History Tobacco Use Types Packs/Day Years [...] Description 12/31/2024 11:30 AM EDT Office Visit [facility] [address] [place] [address] 3rd Floor, [address] [place] [address] Kyree Castillo MD 22 [facility], [address] [place] [address] documented as of this encounter Visit Diagnoses Not on filedocumented in this encounter Care Teams Inclusion Intern Relationship Specialty Start Date End Date Haider Wolf DO [email or web address] PCP - General 01/12/17 Haider Wolf DO [address] [place] [address] Insurance Assigned Provider 07/28/1805/06 documented as of this encounter Additional Source Comments The information contained in this document represents components of the legal health record. It is not the complete legal health record.[facility]
--- OUTSIDE RECORDS SUMMARY | 2024-12-09 10:47 | XMS_ITS | Encounter Summary ---
Author Organization [facility] Address [address] [place] [address] [address] [place] [address] Phone Care Team Providers Care Nicu Rn Name Role Phone Haider Wolf DO Primary Care Provider [phone] Haider Wolf DO Unavailable Encounter Details Date Type Department Care Team (Latest Contact Info) Description 06/03/2019 Transcribe Orders Virtual Department 30 [place] [address] Filippo Pace MD [address] [place] [address] [email or web address] Abnormal weight loss (Primary [...] Description 12/31/2024 11:30 AM EDT Office Visit [facility] [address] [place] [address] 3rd Floor, [address] [place] [address] Kyree Castillo MD [address] [place] [address], [address] [place] [address] [email or web address] documented as of this encounter Results * XR CHEST PA AND LATERAL 2 VIEWS (06/04/2019 10:36 AM EDT) Anatomical Region Laterality Modality Chest Radiographic Nurys ging 06/04/2019 11:0 0 AM EDT Impressions 06/04/2019 11:02 AM EDT No acute pulmonary process. POS: [id number] Narrative 06/04/2019 11:02 AM EDT XR CHEST [...] abnormality. IMPRESSION: No acute pulmonary process. POS: [id number] Filippo Pace MD IMG XR CHEST Final Result documented in this encounter Visit Diagnoses Diagnosis Abnormal weight loss- Primary Loss of weight Abnormal weight loss Loss of weight documented in this encounter Care Teams Nicu Rn Relationship Specialty Start Date End Date Haider Wolf DO [email or web address] PCP - General 01/12/17 Haider Wolf DO [address] [place] [address] [email or web address] Insurance Assigned Provider 07/28/1805/06 documented as of this encounter Additional Source Comments The information contained in this document represents components of the legal health record. It is not the complete legal health record.[facility]
--- OUTSIDE RECORDS SUMMARY | 2024-12-09 10:47 | XMS_ITS | Encounter Summary ---
Author Organization [facility] Address [address] [place] [address] Phone Care Team Providers Care Shrinking Machine Operator Name Role Phone Haider Wolf DO Primary Care Provider [phone] JanineHaider christiansen Unavailable Reason for Referral * MRI/CAT Scan - Closed Specialty Diagnoses / Procedures Referred By Yunior boyce Referred To Contact Radiology Diagnoses RLQ abdominal pain Change in bowel habits Procedures CT Abdomen/Pelvis Filippo Pace MD Phone: tel: fax: [email or web address] Referral ID Status Reason Start Date Expiration Date Visits Re quested Visits Authorized [id number] Closed 09/13/2017 11/12/2017 1 1 Encounter Details Date Type Department Care Team (Late st Contact Info) Description 09/13/2017 Ancillary Orders Virtual Department 30 [place] [address] Filippo Pace MD [address] [place] [address] [email or web address] RLQ abdominal pain; Change in bowel habits [...] Description 12/31/2024 11:30 AM EDT Office Visit [facility] [address] [place] [address] 3rd Floor, [address] [place] [address] Kyree Castillo MD 22 [facility], [address] [place], [place] [address] [email or web address] documented as of this encounter Results * [...] system documented in this encounter Care Teams Shrinking Machine Operator Relationship Specialty Start Date End Date Haider Wolf DO PCP - General 01/12/17 Haider Wolf DO [address] [place] [address] [email or web address] Insurance Assigned Provider 07/28/1805/06 documented as of this encounter Additional Source Comments The information contained in this document represents components of the legal health record. It is not the complete legal health record.[facility]
--- OUTSIDE RECORDS SUMMARY | 2024-12-09 10:47 | XMS_ITS | Encounter Summary ---
Author Organization [facility] Address [address] [place] [address] Phone Care Team Providers Care Sustainability Project Coordinator Name Role Phone Haider Wolf DO Primary Care Provider [phone] JanineHaider christiansen DO Unavailable Encounter Details Date Type Department Care Team (Late st Contact Info) Description 09/03/2021 Procedure Pass [facility]oscopy Admitting Dept Virtual Department [address] [place] [address] Social History Tobacco Use Types Packs/Day Years [...] Description 12/31/2024 11:30 AM EDT Office Visit [facility] [address] [place] [address] 3rd Floor, [address] [place] [address] Kyree Castillo MD 22 [facility], [address] [address] documented as of this encounter Visit Diagnoses Not on filedocumented in this encounter Care Teams Sustainability Project Coordinator Relationship Specialty Start Date End Date Haider Wolf DO PCP - General 01/12/17 Haider Wolf DO [address] [place] [address] Insurance Assigned Provider 07/28/1805/06 documented as of this encounter Additional Source Comments The information contained in this document represents components of the legal health record. It is not the complete legal health record.[facility]
--- OUTSIDE RECORDS SUMMARY | 2024-12-09 10:47 | XMS_ITS | Encounter Summary ---
Author Organization [facility] Address [address] [place] [address] Phone Care Team Providers Care Harp Regulator Name Role Phone Haider Wolf DO Primary Care Provider [phone] JanineHaider christiansen DO Unavailable Encounter Details Date Type Department Care Team (Late st Contact Info) Description 01/29/2021 Procedure Pass [facility] Admitting Dept Virtual Department [address] [place] [address] Social History Tobacco Use Types Packs/Day Years [...] Description 12/31/2024 11:30 AM EDT Office Visit [facility] [address] [place] [address] 3rd Floor, [address] [place] [address] Kyree Castillo MD 22 [facility], [address] [address] documented as of this encounter Visit Diagnoses Not on filedocumented in this encounter Care Teams Harp Regulator Relationship Specialty Start Date End Date Haider Wolf DO [email or web address] PCP - General 01/12/17 Haider Wolf DO [address] [place] [address] [email or web address] Insurance Assigned Provider 07/28/1805/06 documented as of this encounter Additional Source Comments The information contained in this document represents components of the legal health record. It is not the complete legal health record.[facility]
--- OUTSIDE RECORDS SUMMARY | 2024-12-09 10:47 | XMS_ITS | Encounter Summary ---
Author Organization [facility] Address [address] [place] [address] Phone Care Team Providers Care Assembly Room Supervisor Name Role Phone Haider Wolf DO Primary Care Provider [phone] JanineHaider christiansen DO Unavailable Encounter Details Date Type Department Care Team (Late st Contact Info) Description 09/13/2017 Procedure Pass [facility], Ct Scan - [address] [address] Social History Tobacco Use Types Packs/Day Years [...] Description 12/31/2024 11:30 AM EDT Office Visit [facility] [address] [place] [address] 3rd Floor, [address] [place] [address] Kyree Castillo MD 22 [facility], [address] [place] [address] documented as of this encounter Visit Diagnoses Not on filedocumented in this encounter Care Teams Assembly Room Supervisor Relationship Specialty Start Date End Date Haider Wolf DO PCP - General 01/12/17 Haider Wolf DO [address] [place] [address] Insurance Assigned Provider 07/28/1805/06 documented as of this encounter Additional Source Comments The information contained in this document represents components of the legal health record. It is not the complete legal health record.[facility]
--- OUTSIDE RECORDS SUMMARY | 2024-12-09 10:47 | XMS_ITS | Encounter Summary ---
Author Organization [facility] Address [address] [place] [address] Phone Care Team Providers Care Cylinder Press Operator Helper Name Role Phone Haider Wolf DO Primary Care Provider [phone] JanineHaider christiansen DO Unavailable Encounter Details Date Type Department Care Team (Late Contact Info) Description 02/14/2017 Procedure Pass [facility]oscopy Admitting Dept Virtual Department [address] [place] [address] Social History Tobacco Use Types Packs/Day Years [...] Description 12/31/2024 11:30 AM EDT Office Visit [facility] [address] [place] [address] 3rd Floor, [address] [place] [address] Kyree Castillo MD 22 [facility], [address] [address] documented as of this encounter Visit Diagnoses Not on filedocumented in this encounter Care Teams Cylinder Press Operator Helper Relationship Specialty Start Date End Date Haider Wolf DO [email or web address] PCP - General 01/12/17 Haider Wolf DO [address] [place] [address] [email or web address] Insurance Assigned Provider 07/28/1805/06 documented as of this encounter Additional Source Comments The information contained in this document represents components of the legal health record. It is not the complete legal health record.[facility]
--- OUTSIDE RECORDS SUMMARY | 2024-12-09 10:47 | XMS_ITS | Encounter Summary ---
Author Organization [facility] Address [address] [place] [address] [place] [address] Phone Care Team Providers Care Financial Aid Director Name Role Phone Haider Wolf DO Primary Care Provider [phone] Haider Wolf DO Unavailable Encounter Details Date Type Department Care Team (Latest Contact Info) Description 05/27/2019 Transcribe Orders [facility] Laboratory 10 [facility] 2nd [place] [address] Filippo Pace MD 10 [facility] 2 [place] [address] [email or web address] Loss of weight (Primary Dx); Gastroesophageal reflux [...] 12/31/2024 11:30 AM EDT Office Visit [facility] [address] [place] [address] 3rd Floor, [address] [place], [place] [id number] Kyree Castillo MD [address] [place] [address], [address] [place] [address] [email or web address] documented as of this encounter Results * TSH (05/27/2019 1:51 PM EST) Pathologist [facility] TSH 1.37 0.27 - 4.20 uIU/mL [facility] Blood 05/27/2019 1:51 PM EST 05/27/2019 1:57 PM EST us Filippo Pace MD LAB BLOOD ORDERABLES Final R esult [address] [address] * C-Reactive Protein (05/27/2019 1:51 PM EST) [facility] C REACTIVE PROTEIN <0.3 0.0 - 4.0 mg/L [facility] Blood 05/27/2019 1:51 PM EST 05/27/2019 1:57 PM EST us Filippo Pace MD LAB BLOOD ORDERABLES Final R esult [address] [address] * (ABNORMAL) Comprehensive metabolic panel (05/27/2019 1:51 PM EST) [facility] SODIUM 140 133 - 146 mmol/L [facility] POTASSIUM 3.5 3.3 - 5.1 mmol/L [facility] CHLORIDE 104 96 - 108 mmol/L [facility] CO2 24 21 - 35 mmol/L [facility] BUN 8 6 - 19 mg/dL [facility] CREATININE 1.10 0.5 - 1.5 mg/dL [facility] GLUCOSE 125(H) 70 - 99 mg/dL [facility] ALBUMIN 4.6 3.9 - 4.8 g/dL [facility] TOTAL PROTEIN 7.5 6.5 - 8.0 g/dL [facility] CALCIUM 9.3 8.4 - 10.3 mg/dL [facility] ALKALINE PHOSPHATASE 60 39 - 117 U/L [facility] TOTAL BILIRUBIN 0.6 0.0 - 1.2 mg/dL [facility] AST 34 0 - 37 U/L [facility] ALT 17 0 - 40 U/L [facility] GLOBULIN 2.9 1 - 4.8 g/dL [facility] EGFR 75 >59 mL/min/1.7 3m2 [facility] Comment:If patient is black, multiply result by 1.159. Estimated glomerular filtration rate calculated using the CKD-EPI equation. ANION GAP 16 10 - 20 mmol/L [facility] Blood 05/27/2019 1:51 PM EST 05/27/2019 1:57 PM EST us Filippo Pace MD LAB BLOOD ORDERABLES Final R esult Performing Organization Address City/State/[facility] Co de Phone Number [address] [address] * CBC (05/27/2019 1:51 PM EST) WBC 5.57 4.00 - 11.00 K/uL [facility] Comment:Note Reference Range updates to all CBC and Differential results. RBC 5.22 4.23 - 5.82 M/uL [facility] HGB 16.3 13.4 - 17.5 g/dL [facility] Comment:Note updated Referen ce Ranges for all CBC and Differential results. HCT 46.5 37.0 - 51.0 % [facility] PLT 289 140 - 430 K/uL [facility] MCV 89.1 78.0 - 97.0 fL [facility] MCH 31.2 25.0 - 33.0 pg [facility] MCHC 35.1 32.0 - 36.0 g/dL [facility] RDW 12.9 11.0 - 15.0 % [facility] MPV 8.5 8.4 - 12.8 [facility] NRBC 0.00 0 /100 WBCs [facility] ABSOLUTE NRBC 0.00 0 K/uL [facility] Blood 05/27/2019 1:51 PM EST 05/27/2019 1:57 PM EST us Filippo Pace MD LAB BLOOD ORDERABLES Final R esult Performing Organization Address City/[facility]/ZIP Co de Phone Number [address] [address] * Immunoglobulin A (05/27/2019 1:51 PM EST) IgA 202 70 - 400 mg/dL [facility] Blood 05/27/2019 1:51 PM EST 05/27/2019 1:57 PM EST Filippo Pace MD LAB BLOOD ORDERABLES Final R critical access hospital Performing Organization Address [facility] Co de Phone Number [address] [address] * Gliadin deamidated antibody, IgG/IgA (05/27/2019 1:51 PM EST) Gliadin Ab, IGA <10.0 <20.0 (Negative) [facility] [address] GLIADIN AB IGG <10.0 <20.0 (Negative) [facility] [address] Blood 05/27/2019 1:51 PM EST 05/27/2019 1:59 PM EST us Filippo Pace MD LAB BLOOD ORDERABLES Final R esult Performing Organization Address City/[facility]/ZIP Co de Phone Number [facility] [address] [place] [address] * Tissue transglutaminase IgA (05/27/2019 1:51 PM EST) TTG IGA ANTIBODY <1.2 <4.0 (Negative) U/mL [facility] [address] Blood 05/27/2019 1:51 PM EST 05/27/2019 1:59 PM EST us Filippo Pace MD LAB BLOOD ORDERABLES Final R esult [facility] [address] [place] [address] documented in this encounter Visit Diagnoses Diagnosis Loss of weight- Primary Gastroesophageal reflux disease without esophagitis Esophageal reflux documented in this encounter Care Teams Financial Aid Director Relationship Specialty Start Date End Date Haider Wolf DO [email or web address] PCP - General 01/12/17 Haider Wolf DO [address] [place] [address] [email or web address] Insurance Assigned Provider 07/28/1805/06 documented as of this encounter Additional Source Comments The information contained in this document represents components of the legal health record. It is not the complete legal health record.[facility]
--- OUTSIDE RECORDS SUMMARY | 2024-12-09 10:47 | XMS_ITS | Encounter Summary ---
Author Organization [facility] Address [address] [place] [address] Phone Care Team Providers Care Manometer Technician Name Role Phone Haider Wolf DO Primary Care Provider [phone] JanineHaider christiansen DO Unavailable Reason for Referral * MRI/CAT Scan - Closed Specialty Diagnoses / Procedures Referred By Yunior boyce Referred To Contact Radiology Diagnoses Abnormal weight loss Abdominal pain, unspecified abdominal location Procedures CT Abdomen/Pelvis Filippo Pace MD Phone: tel: fax: mailto:[email or web address] Referral ID Status Reason Start Date Expiration Date Visits Re quested Visits Authorized [id number] Closed 06/06/2019 10/03/2019 1 1 Encounter Details Date Type Department Care Team (Latest Contact Info) Description 06/07/2019 Transcribe Orders Virtual Department 30 [place] [address] Filippo Pace MD [address] [place] [address] [email or web address] GERD without esophagitis (Primary Dx); Abnormal weight [...] Description 12/31/2024 11:30 AM EDT Office Visit [facility] [address] [place] [address] 3rd Floor, [address] [place] [address] Kyree Castillo MD 22 [facility], [address] [place] [address] [email or web address] documented as of this encounter Results * [...] location documented in this encounter Care Teams Manometer Technician Relationship Specialty Start Date End Date Haider Wolf DO PCP - General 01/12/17 Haider Wolf DO [address] [place] [address] Insurance Assigned Provider 07/28/1805/06 documented as of this encounter Additional Source Comments The information contained in this document represents components of the legal health record. It is not the complete legal health record.[facility]
--- OUTSIDE RECORDS SUMMARY | 2024-12-09 10:47 | XMS_ITS | Encounter Summary ---
Author Organization [facility] Address [address] [place] [address] [place] [address] Phone Care Team Providers Care Supervisor Sewing Room Name Role Phone Haider Wolf DO Primary Care Provider [phone] Haider Wolf DO Unavailable Encounter Details Date Type Department Care Team (Late Contact Info) Description 09/05/2017 Ancillary Orders Virtual Department 30 [place] [address] Criselda Ernestina, TASNEEM [address] Gurp[address] Francois. Ortiz. [address] [place] [address] Other specified disorders of the male genital [...] Description 12/31/2024 11:30 AM EDT Office Visit [facility] [address] [place] [address] 3rd Floor, [address] [place] [address] Kyree Castilol MD [address], [address] [place] [address] [email or web address] documented as of this encounter Results * [...] organs documented in this encounter Care Teams Supervisor Sewing Room Relationship Specialty Start Date End Date Haider Wolf DO [email or web address] PCP - General 01/12/17 Haider Wolf GianniDO [address] [place] [address] [email or web address] Insurance Assigned Provider 07/28/1805/06 documented as of this encounter Additional Source Comments The information contained in this document represents components of the legal health record. It is not the complete legal health record.[facility]
--- OUTSIDE RECORDS SUMMARY | 2024-12-09 10:47 | XMS_ITS | Encounter Summary ---
Author Organization [facility] Address [address] [place] [address] [place] [address] Phone Care Team Providers Care Vacuum Repairer Name Role Phone Haider Wolf DO Primary Care Provider [phone] Haider Wolf DO Unavailable Encounter Details Date Type Department Care Team (Latest Contact Info) Description 09/13/2017 Transcribe Orders [facility] Laboratory [address] 2nd [place] [address] Filippo Pace MD 10 [facility] 2 [place] [address] [email or web address] Bowel habit changes (Primary Dx); Abdominal [...] Description 12/31/2024 11:30 AM EDT Office Visit [facility] [address] [place] [address] 3rd Floor, [address] [place], [place] [address] Kyree Castillo MD [address] [place] [address], [address] [place] [address] [email or web address] documented as of this encounter Results * (ABNORMAL) Urinalysis (09/13/2017 10:50 AM EDT) COLOR Yellow Yellow [facility] CLARITY Clear [facility] GLUCOSE Negative Negative [facility] BILI Negative Negative [facility] KETONES Negative Negative [facility] SPECIFIC GRAVITY 1.020 1.005 - 1.030 [facility] BLOOD Trace(A) Negative [facility] PH 7.0 5.0 - 8.0 [facility] Protein-UA Negative Negative [facility] NITRITE Negative Negative [facility] Leukocyte esterase, ur Negative Negative [facility] Urine (Urine) 09/13/2017 10: 50 AM EDT 09/13/2017 11:12 AM EDT us Filippo Pace MD URINE ORDERABLES Final Resul t Performing Organization Address [facility] Co de Phone Number [address] [address] * C-Reactive Protein (09/13/2017 10:50 AM EDT) Pathologist [facility] C REACTIVE PROTEIN <0.3 0.0 - 4.0 mg/L [facility] Comment:New Reference Range and Measuring Units effective 08/09/17. Blood 09/13/2017 10:5 0 AM EDT 09/13/2017 10:58 AM EDT us Filippo Pace MD LAB BLOOD ORDERABLES Final R esult Performing Organization Address City/[facility]/ZIP Co de Phone Number [address] [address] * (ABNORMAL) Comprehensive metabolic panel (09/13/2017 10:50 AM EDT) Pathologist [facility] SODIUM 139 133 - 146 mmol/L [facility] POTASSIUM 4.1 3.3 - 5.1 mmol/L [facility] CHLORIDE 102 96 - 108 mmol/L [facility] CO2 27 21 - 35 mmol/L [facility] BUN 8 6 - 19 mg/dL [facility] CREATININE 1.20 0.5 - 1.5 mg/dL [facility] GLUCOSE 105(H) 70 - 99 mg/dL [facility] ALBUMIN 4.0 3.9 - 4.8 g/dL [facility] TOTAL PROTEIN 6.7 6.5 - 8.0 g/dL [facility] CALCIUM 8.6 8.4 - 10.3 mg/dL [facility] ALKALINE PHOSPHATASE 73 39 - 117 U/L [facility] TOTAL BILIRUBIN 0.4 0.0 - 1.2 mg/dL [facility] AST 22 0 - 37 U/L [facility] ALT 16 0 - 40 U/L [facility] GLOBULIN 2.7 1 - 4.8 g/dL [facility] EGFR 69 >59 mL/min/1.7 3m2 [facility] Comment:If patient is black, multiply result by 1.159. Estimated glomerular filtration rate calculated using the CKD-EPI equation. ANION GAP 14 10 - 20 mmol/L [facility] Blood 09/13/2017 10:5 0 AM EDT 09/13/2017 10:58 AM EDT us Filippo Pace MD LAB BLOOD ORDERABLES Final R esult [facility] [address] [place] [address] * (ABNORMAL) CBC (09/13/2017 10:50 AM EDT) WBC 4.58 3.40 - 11.20 K/uL [facility] RBC 4.92 4.50 - 5.50 M/uL [facility] HGB 15.3 13.0 - 17.0 g/dL [facility] HCT 43.9 40.0 - 51.0 % [facility] PLT 242 130 - 400 K/uL [facility] MCV 89.2 79.0 - 98.0 fL [facility] MCH 31.1 27.0 - 34.8 pg [facility] MCHC 34.9 31.5 - 36.0 g/dL [facility] RDW 12.9 10.8 - 14.6 % [facility] MPV 8.4(L) 9.4 - 12.4 fl [facility] NRBC 0.00 /100 WBCs [facility] ABSOLUTE NRBC 0.00 K/uL [facility] Blood 09/13/2017 10:5 0 AM EDT 09/13/2017 10:58 AM EDT us Filippo Pace MD LAB BLOOD ORDERABLES Final R esult Performing Organization Address City/State/[facility] Co de Phone Number [facility] [address] [place] [address] documented in this encounter Visit Diagnoses Diagnosis Bowel habit changes- Primary Other symptoms involving digestive system Abdominal pain, right lower quadrant documented in this encounter Care Teams Vacuum Repairer Relationship Specialty Start Date End Date Haider Wolf DO PCP - General 01/12/17 Haider Wolf DO [address] [place] [address] Insurance Assigned Provider 07/28/1805/06 documented as of this encounter Additional Source Comments The information contained in this document represents components of the legal health record. It is not the complete legal health record.[facility]
--- OUTSIDE RECORDS SUMMARY | 2024-12-09 10:48 | XMS_ITS | Encounter Summary ---
Author Organization [facility] Address [address] [place] [address] [place] [address] Phone Care Team Providers Care Turf Keeper Name Role Phone Haider Wolf DO Primary Care Provider [phone] Haider Wolf DO Unavailable Encounter Details Date Type Department Care Team (Late Contact Info) Description 01/25/2018 Ancillary Orders Virtual Department 30 [place] [address] Criselda Ernestina, TASNEEM 54 Gurpreet Francois. Ortiz. [address] [place] [address] Tachycardia Social History Tobacco Use Types Packs/Day [...] Description 12/31/2024 11:30 AM EDT Office Visit [facility] [address] [place] [address] 3rd Floor, [address] [place] [address] Kyree Castillo MD 22 [facility], [address] [place] [address] [email or web address] documented as of this encounter Results * Holter Monitor 24 Hours (02/02/2018 12:15 PM EST) Total Beats 124,795 [facility] Ventricular Ectopy Total Beats 1 [facility] Ventricular Ectopy Single Beats 1 [facility] Ventricular Pair 0 [facility] Ventricular Runs 0 [facility] Supraventricular Total Beats 4 [facility] Supraventricular Ectopic Single Beats 4 [facility] Supraventricular Pairs 0 [facility] Supraventricular Runs 0 [facility] Mean Heart Rate 87 BPM [facility] Maximum Heart Rate 129 BPM [facility] Minimum Heart Rate 49 BPM [facility] Longest RR 1.600 [address] [facility] Anatomical Region Laterality Modality Heart Other [...] tachycardia documented in this encounter Care Teams Turf Keeper Relationship Specialty Start Date End Date Haider Wolf DO [email or web address] PCP - General 01/12/17 Haider Wolf DO [address] [place] [address] [email or web address] Insurance Assigned Provider 07/28/1805/06 documented as of this encounter Additional Source Comments The information contained in this document represents components of the legal health record. It is not the complete legal health record.[facility]
--- OUTSIDE RECORDS SUMMARY | 2024-12-09 10:48 | XMS_ITS | Clinical Summary ---
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..] monitored continuously. The Olympus adult variable colonoscope [id number] #1was introduced through the anus and advanced [...] 12:19 PM Procedure Code(s): --- Professional --- 50634, Colonoscopy, flexible; diagnostic, including collection of specimen(s) by brushing or washing, when performed (separateprocedure) --- Technical --- 78306, Colonoscopy, flexible; diagnostic, including collection of specimen(s) by brushing or washing, when performed (separateprocedure) Diagnosis Code(s): --- Professional --- Z86.010, Personal history of colonic polyps K57.30, Diverticulosis of large intestine without perforation or abscess without bleeding --- Technical --- Z86.010, Personal history of colonic polyps K57.30, Diverticulosis of large intestine without perforation or abscess without bleeding CPT copyright 2018 [employer]. All rights reserved. The codes documented in this report are preliminary and upon after school tutor reviewmay be revised to meet current compliance requirements. Procedure Date: 01/29/2021 12:19:48 PM 30 [place] [address] Fortunato A Luciano DO GI PROCEDURE ORDERABLES Final Re sult from Last 3 Months or Most Recently Relevant to Health Maintenance Insurance [facility] PPO CROSS OUT OF STATE PPO OUT OF [facility] PPO CROSS OUT OF [facility] PPO PPO PPO Care Teams Group Leader Relationship Specialty Start Date End Date Fortunato Hawkins DO [email or web address] PCP - General 01/12/17 Additional Source Comments The information contained in this document represents components of the legal health record. It is not the complete legal health record.[facility]
--- OUTSIDE RECORDS SUMMARY | 2024-12-09 10:48 | XMS_ITS | Encounter Summary ---
Author Organization [facility] Address [address] [place] [address] Phone Care Team Providers Care Helix Coil Winder Name Role Phone Haider Wolf DO Primary Care Provider [phone] Encounter Details Date Type Department Care Team (Late st Contact Info) Description 05/03/2024 Procedure Pass [facility] Endoscopy Admitting Dept Virtual Department [address] [place] [address] Social History Tobacco Use Types Packs/Day Years [...] Description 12/31/2024 11:30 AM EDT Office Visit [facility] [address] [place] [address] 3rd Floor, [address] [place] [address] Kyree Castillo MD 22 [facility], [address] [place] [address] [email or web address] documented as of this encounter Visit Diagnoses Not on filedocumented in this encounter Care Teams Helix Coil Winder Relationship Specialty Start Date End Date Haider Wolf DO PCP - General 01/12/17 documented as of this encounter Additional Source Comments The information contained in this document represents components of the legal health record. It is not the complete legal health record.[facility]
--- OUTSIDE RECORDS SUMMARY | 2024-12-09 10:48 | XMS_ITS | Encounter Summary ---
Author Organization [facility] Address [address] [place] [address] [place] [address] Phone Care Team Providers Care Chip Silo Tender Name Role Phone Haider Wolf DO Primary Care Provider [phone] Haider Wolf DO Unavailable Encounter Details Date Type Department Care Team (Latest Contact Info) Description 03/16/2022 Transcribe Orders Virtual Department 30 [place] [address] Lacey Mason PA [address] [place] [address] [place] [address] Left shoulder pain, unspecified chronicity (Primary Dx) [...] Description 12/31/2024 11:30 AM EDT Office Visit [facility] [address] [place] [address] [address]rd [facility], [address] [place] [address] Kyree Castillo MD 22 [facility] 301 [place] [address] [email or web address] documented as of this encounter Visit Diagnoses Diagnosis Left shoulder pain, unspecified chronicity- Primary documented in this encounter Care Teams Chip Silo Tender Relationship Specialty Start Date End Date Haider Wolf DO [email or web address] PCP - General 01/12/17 Haider Wolf DO [address] [facility] [place] [address] [email or web address] Insurance Assigned Provider 07/28/1805/06 documented as of this encounter Additional Source Comments The information contained in this document represents components of the legal health record. It is not the complete legal health record.[facility]
--- OUTSIDE RECORDS SUMMARY | 2024-12-09 10:48 | XMS_ITS | Encounter Summary ---
Author Organization [facility] Address [address] [place] [address] Phone Care Team Providers Care Quick Technician Name Role Phone Haider Wolf DO Primary Care Provider [phone] Haider Wolf DO Unavailable Reason for Referral * - Closed Specialty Diagnoses / Procedures Referred By Yunior boyce Referred To Contact Diagnoses Atypical chest pain Procedures Stress Test Exercise Haider Wolf DO Phone: tel: fax: mailto:[email or web address] Referral ID Status Reason Start Date Expiration Date Visits Re quested Visits Authorized [id number] Closed 08/06/2018 08/06/2019 1 1 Encounter Details Date Type Department Care Team (Late st Contact Info) Description 08/06/2018 Ancillary Orders Virtual Department 30 [place] [address] Haider Wolf DO [address] [facility] [place] [address] [email or web address] Atypical chest pain Social History Tobacco Use [...] Description 12/31/2024 11:30 AM EDT Office Visit [facility] [address] [facility] 3rd Floor, [address] [place] [address] Kyree Castillo MD 22 [facility], [address] [place] [address] [email or web address] documented as of this encounter Results * Stress Test Exercise (08/14/2018 8:49 AM EDT) Max BP Systolic 156 mmHg [facility] Max BP Diastolic 78 mmHg [facility] Max HR 157 BPM [facility] Resting HR 92 BPM [facility] Resting BP Systolic 120 mmHg [facility] Resting BP Diastolic 84 mmHg [facility] Peak METS 10.1 METS [facility] Peak HR 157 BPM [facility] Anatomical Region Laterality Modality Heart Other 08/14/2018 [...] pain documented in this encounter Care Teams Quick Technician Relationship Specialty Start Date End Date Haider Wolf DO [email or web address] PCP - General 01/12/17 Haider Wolf DO [address] [place] [address] [email or web address] Insurance Assigned Provider 07/28/1805/06 documented as of this encounter Additional Source Comments The information contained in this document represents components of the legal health record. It is not the complete legal health record.[facility]
--- OUTSIDE RECORDS SUMMARY | 2024-12-09 10:48 | XMS_ITS | Encounter Summary ---
Author Organization [facility] Address [address] [place] [address] Phone Care Team Providers Care Inbound Customer Service Representative Name Role Phone Haider Wolf DO Primary Care Provider JanineHaider christiansen DO Unavailable Encounter Details Date Type Department Care Team (Late st Contact Info) Description 02/12/2019 Procedure Pass [facility] Endoscopy Admitting Dept Virtual Department [address] [place] [address] Social History Tobacco Use Types Packs/Day Years [...] Description 12/31/2024 11:30 AM EDT Office Visit [facility] [address] [place] [address] 3rd Floor, [address] [place] [address] Kyree Castillo MD 22 [facility], [address] [address] documented as of this encounter Visit Diagnoses Not on filedocumented in this encounter Care Teams Inbound Customer Service Representative Relationship Specialty Start Date End Date Haider Wolf DO PCP - General 01/12/17 Haider Wolf DO 179 [place] [address] Insurance Assigned Provider 07/28/1805/06 documented as of this encounter Additional Source Comments The information contained in this document represents components of the legal health record. It is not the complete legal health record.[facility]
--- OUTSIDE RECORDS SUMMARY | 2024-12-09 10:48 | XMS_ITS | Encounter Summary ---
Author Organization [facility] Address [address] [place] [address] Phone Care Team Providers Care Automation Analyst Name Role Phone Haider oWlf DO Primary Care Provider [phone] JanineHaider christiansen DO Unavailable Encounter Details Date Type Department Care Team (Late Contact Info) Description 11/15/2017 Procedure Pass [facility] Endoscopy Admitting Dept Virtual Department [address] [place] [address] Social History Tobacco Use Types Packs/Day Years [...] Description 12/31/2024 11:30 AM EDT Office Visit [facility] [address] [place] [address] 3rd Floor, [address] [place] [address] Kyree Castillo MD 22 [facility], [address] [address] documented as of this encounter Visit Diagnoses Not on filedocumented in this encounter Care Teams Automation Analyst Relationship Specialty Start Date End Date Haider Wolf DO PCP - General 01/12/17 Haider Wolf DO 179 [place] [address] Insurance Assigned Provider 07/28/1805/06 documented as of this encounter Additional Source Comments The information contained in this document represents components of the legal health record. It is not the complete legal health record.[facility]
== END 2024-12-09 10:13 | disposition home or self-care (01) ==
LOC: HO.HMGAL 09:11
PROVIDERS: PCP Internal Medicine; Visit Provider Registered Nurse Emergency
DX: J30.89 Other allergic rhinitis (principal)
CPT/HCPCS: 95117; 95165

== ENCOUNTER 2024-12-30 09:44 | Outpatient (AMB) | payer BC, SELFPAY ==
--- OUTSIDE RECORDS SUMMARY | 2024-12-30 11:10 | XMS_ITS | Encounter Summary ---
Author Organization [facility] Address [address] [place] [address] Phone Care Team Providers Care Breastfeeding Peer Counselor Name Role Phone Haider Wolf DO Primary Care Provider [phone] JanineHaider christiansen Unavailable Reason for Referral * MRI/CAT Scan - Closed Specialty Diagnoses / Procedures Referred By Yunior boyce Referred To Contact Radiology Diagnoses RLQ abdominal pain Change in bowel habits Procedures CT Abdomen/Pelvis Filippo Pace MD Phone: tel: fax: mailto:[email or web address] Referral ID Status Reason Start Date Expiration Date Visits Re quested Visits Authorized [id number] Closed 09/13/2017 11/12/2017 1 1 Encounter Details Date Type Department Care Team (Late st Contact Info) Description 09/13/2017 Ancillary Orders Virtual Department [address] [place] [address] Filippo Pace MD [address] [place] [address] [email or web address] RLQ abdominal pain; Change in bowel habits [...] Description 12/31/2024 11:30 AM EDT Office Visit [facility] [address] [place] [address] 3rd Floor, [address] [place] [address] Kyree Castillo MD 22 [facility], [address] [place], [place] [phone] [email or web address] documented as of this encounter Results * [...] system documented in this encounter Care Teams Breastfeeding Peer Counselor Relationship Specialty Start Date End Date Haider Wolf DO PCP - General 01/12/17 Haider Wolf DO [address] [place] [address] [email or web address] Insurance Assigned Provider 07/28/1805/06 documented as of this encounter Additional Source Comments The information contained in this document represents components of the legal health record. It is not the complete legal health record.[facility]
--- OUTSIDE RECORDS SUMMARY | 2024-12-30 11:10 | XMS_ITS | Encounter Summary ---
Author Organization [facility] Address [address] [place] [address] [place] [address] Phone Care Team Providers Care Air Tool Operator Name Role Phone Haider Wolf DO Primary Care Provider [phone] Haider Wolf DO Unavailable Encounter Details Date Type Department Care Team (Latest Contact Info) Description 05/27/2019 Transcribe Orders [facility] [address] [facility] 2nd [place] [address] Filippo Pace MD 10 [facility] 2 [place] [address] [email or web address] Loss of weight (Primary Dx); Gastroesophageal reflux [...] Description 12/31/2024 11:30 AM EDT Office Visit [facility] [address] [place] [address] 3rd Floor, [address] [place], [place] [phone] Kyree Castillo MD [address] [place] [address], [address] [place] [address] [email or web address] documented as of this encounter Results * TSH (05/27/2019 1:51 PM EST) Pathologist [facility] TSH 1.37 0.27 - 4.20 uIU/mL [facility] Blood 05/27/2019 1:51 PM EST 05/27/2019 1:57 PM EST us Filippo Pace MD LAB BLOOD ORDERABLES Final R esult [address] [address] * C-Reactive Protein (05/27/2019 1:51 PM EST) [facility] C REACTIVE PROTEIN <0.3 0.0 - 4.0 mg/L [facility] Blood 05/27/2019 1:51 PM EST 05/27/2019 1:57 PM EST us Filippo Pace MD LAB BLOOD ORDERABLES Final R esult [address] [address] * (ABNORMAL) Comprehensive metabolic panel (05/27/2019 1:51 PM EST) [facility] SODIUM 140 133 - 146 mmol/L [facility] POTASSIUM 3.5 3.3 - 5.1 mmol/L [facility] CHLORIDE 104 96 - 108 mmol/L [facility] CO2 24 21 - 35 mmol/L [facility] BUN 8 6 - 19 mg/dL [facility] CREATININE 1.10 0.5 - 1.5 mg/dL [facility] GLUCOSE 125(H) 70 - 99 mg/dL [facility] ALBUMIN 4.6 3.9 - 4.8 g/dL [facility] TOTAL PROTEIN 7.5 6.5 - 8.0 g/dL [facility] CALCIUM 9.3 8.4 - 10.3 mg/dL [facility] ALKALINE PHOSPHATASE 60 39 - 117 U/L [facility] TOTAL BILIRUBIN 0.6 0.0 - 1.2 mg/dL [facility] AST 34 0 - 37 U/L [facility] ALT 17 0 - 40 U/L [facility] GLOBULIN 2.9 1 - 4.8 g/dL [facility] EGFR 75 >59 mL/min/1.7 3m2 [facility] Comment:If patient is black, multiply result by 1.159. Estimated glomerular filtration rate calculated using the CKD-EPI equation. ANION GAP 16 10 - 20 mmol/L [facility] Blood 05/27/2019 1:51 PM EST 05/27/2019 1:57 PM EST us Filippo Pace MD LAB BLOOD ORDERABLES Final R esult Performing Organization Address City/State/[facility] Co de Phone Number [address] [address] * CBC (05/27/2019 1:51 PM EST) WBC 5.57 4.00 - 11.00 K/uL [facility] Comment:Note Reference Range updates to all CBC and Differential results. RBC 5.22 4.23 - 5.82 M/uL [facility] HGB 16.3 13.4 - 17.5 g/dL [facility] Comment:Note updated Referen ce Ranges for all CBC and Differential results. HCT 46.5 37.0 - 51.0 % [facility] PLT 289 140 - 430 K/uL [facility] MCV 89.1 78.0 - 97.0 fL [facility] MCH 31.2 25.0 - 33.0 pg [facility] MCHC 35.1 32.0 - 36.0 g/dL [facility] RDW 12.9 11.0 - 15.0 % [facility] MPV 8.5 8.4 - 12.8 [facility] NRBC 0.00 0 /100 WBCs [facility] ABSOLUTE NRBC 0.00 0 K/uL [facility] Blood 05/27/2019 1:51 PM EST 05/27/2019 1:57 PM EST us Filippo Pace MD LAB BLOOD ORDERABLES Final R esult Performing Organization Address City/[facility]/ZIP Co de Phone Number [address] [address] * Immunoglobulin A (05/27/2019 1:51 PM EST) IgA 202 70 - 400 mg/dL [facility] Blood 05/27/2019 1:51 PM EST 05/27/2019 1:57 PM EST Filippo Pace MD LAB BLOOD ORDERABLES Final R [facility] Performing Organization Address [facility] Co de Phone Number [address] [address] * Gliadin deamidated antibody, IgG/IgA (05/27/2019 1:51 PM EST) Gliadin Ab, IGA <10.0 <20.0 (Negative) [facility]/PATH [address] GLIADIN AB IGG <10.0 <20.0 (Negative) [facility] MED/PATH [address] Blood 05/27/2019 1:51 PM EST 05/27/2019 1:59 PM EST us Filippo Pace MD LAB BLOOD ORDERABLES Final R esult Performing Organization Address City/[facility]/ZIP Co de Phone Number [facility] [address] [place] [address] * Tissue transglutaminase IgA (05/27/2019 1:51 PM EST) TTG IGA ANTIBODY <1.2 <4.0 (Negative) U/mL [facility] [address] Blood 05/27/2019 1:51 PM EST 05/27/2019 1:59 PM EST us Filippo Pace MD LAB BLOOD ORDERABLES Final R esult [facility] [address] [place] [address] documented in this encounter Visit Diagnoses Diagnosis Loss of weight- Primary Gastroesophageal reflux disease without esophagitis Esophageal reflux documented in this encounter Care Teams Air Tool Operator Relationship Specialty Start Date End Date Haider Wolf DO [email or web address] PCP - General 01/12/17 Haider Wolf DO [address] [place] [address] [email or web address] Insurance Assigned Provider 07/28/1805/06 documented as of this encounter Additional Source Comments The information contained in this document represents components of the legal health record. It is not the complete legal health record.[facility]
--- OUTSIDE RECORDS SUMMARY | 2024-12-30 11:10 | XMS_ITS | Encounter Summary ---
Author Organization [facility] Address [address] [place] [address] Phone Care Team Providers Care Welding Rod Coater Name Role Phone Haider Wolf DO Primary Care Provider [phone] LucianoHaider DO Unavailable Reason for Referral * [...] Expiration Date Visits Re quested Visits Authorized [id number] Closed 06/04/2021 07/03/2021 1 1 Encounter Details Date Type Department Care Team (Latest Contact Info) Description 09/25/2020 Transcribe Orders Virtual Department [address] [place] [address] Lacey Mason PA [address] [place] [address] [place] [address] 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 [...] Description 12/31/2024 11:30 AM EDT Office Visit [facility] [address] [place] [address] 3rd Floor, [address] [place] [address] Kyree Castillo MD 22 [facility], [address] [place], [place] [id number] [email or web address] documented as of [...] sinus documented in this encounter Care Teams Welding Rod Coater Relationship Specialty Start Date End Date Haider Wolf DO PCP - General 01/12/17 Haidre Wolf DO [address] [place] [address] Insurance Assigned Provider 07/28/1805/06 documented as of this encounter Additional Source Comments The information contained in this document represents components of the legal health record. It is not the complete legal health record.[facility]
--- OUTSIDE RECORDS SUMMARY | 2024-12-30 11:10 | XMS_ITS | Encounter Summary ---
Author Organization [facility] Address [address] [place] [address] [place] [address] Phone Care Team Providers Care Special Education Bus Driver Name Role Phone Haider Wolf DO Primary Care Provider [phone] JanineHaider christiansen DO Unavailable Encounter Details Date Type Department Care Team (Late st Contact Info) Description 09/13/2017 Procedure Pass [facility], Ct Scan - [address] [address] Social History Tobacco Use Types Packs/Day Years [...] Description 12/31/2024 11:30 AM EDT Office Visit [facility] [address] [place] [address] 3rd Floor, [address] [place] [address] Kyree Castillo MD 22 [facility], [address] [place] [address] documented as of this encounter Visit Diagnoses Not on filedocumented in this encounter Care Teams Special Education Bus Driver Relationship Specialty Start Date End Date Haider Wolf DO PCP - General 01/12/17 Haider Wolf DO [address] [place] [address] Insurance Assigned Provider 07/28/1805/06 documented as of this encounter Additional Source Comments The information contained in this document represents components of the legal health record. It is not the complete legal health record.[facility]
--- OUTSIDE RECORDS SUMMARY | 2024-12-30 11:10 | XMS_ITS | Encounter Summary ---
Author Organization [facility] Address [address] [place] [address] [place] [address] Phone Care Team Providers Care Training Executive Name Role Phone Haider Wolf DO Primary Care Provider [phone] Haider Wolf DO Unavailable Encounter Details Date Type Department Care Team (Latest Contact Info) Description 09/13/2017 Transcribe Orders [facility] [address] 2nd [place] [address] Filippo Pace MD 10 [facility] 2 [place] [address] [email or web address] Bowel habit changes (Primary Dx); Abdominal pain, [...] Description 12/31/2024 11:30 AM EDT Office Visit [facility] [address] [place] [address] 3rd Floor, [address] [place], [place] [phone] Kyree Castillo MD [address] [place] [address], [address] [place] [address] [email or web address] documented as of this encounter Results * (ABNORMAL) Urinalysis (09/13/2017 10:50 AM EDT) COLOR Yellow Yellow [facility] CLARITY Clear [facility] GLUCOSE Negative Negative [facility] BILI Negative Negative [facility] KETONES Negative Negative [facility] SPECIFIC GRAVITY 1.020 1.005 - 1.030 [facility] BLOOD Trace(A) Negative [facility] PH 7.0 5.0 - 8.0 [facility] Protein-UA Negative Negative [facility] NITRITE Negative Negative [facility] Leukocyte esterase, ur Negative Negative [facility] Urine (Urine) 09/13/2017 10: 50 AM EDT 09/13/2017 11:12 AM EDT us Filippo Pace MD URINE ORDERABLES Final Resul t Performing Organization Address [facility] Co de Phone Number [address] [address] * C-Reactive Protein (09/13/2017 10:50 AM EDT) Pathologist [facility] C REACTIVE PROTEIN <0.3 0.0 - 4.0 mg/L [facility] Comment:New Reference Range and Measuring Units effective 08/09/17. Blood 09/13/2017 10:5 0 AM EDT 09/13/2017 10:58 AM EDT us Filippo Pace MD LAB BLOOD ORDERABLES Final R esult Performing Organization Address City/[facility]/ZIP Co de Phone Number [address] [address] * (ABNORMAL) Comprehensive metabolic panel (09/13/2017 10:50 AM EDT) Pathologist [facility] SODIUM 139 133 - 146 mmol/L [facility] POTASSIUM 4.1 3.3 - 5.1 mmol/L [facility] CHLORIDE 102 96 - 108 mmol/L [facility] CO2 27 21 - 35 mmol/L [facility] BUN 8 6 - 19 mg/dL [facility] CREATININE 1.20 0.5 - 1.5 mg/dL [facility] GLUCOSE 105(H) 70 - 99 mg/dL [facility] ALBUMIN 4.0 3.9 - 4.8 g/dL [facility] TOTAL PROTEIN 6.7 6.5 - 8.0 g/dL [facility] CALCIUM 8.6 8.4 - 10.3 mg/dL [facility] ALKALINE PHOSPHATASE 73 39 - 117 U/L [facility] TOTAL BILIRUBIN 0.4 0.0 - 1.2 mg/dL [facility] AST 22 0 - 37 U/L [facility] ALT 16 0 - 40 U/L [facility] GLOBULIN 2.7 1 - 4.8 g/dL [facility] EGFR 69 >59 mL/min/1.7 3m2 [facility] Comment:If patient is black, multiply result by 1.159. Estimated glomerular filtration rate calculated using the CKD-EPI equation. ANION GAP 14 10 - 20 mmol/L [facility] Blood 09/13/2017 10:5 0 AM EDT 09/13/2017 10:58 AM EDT us Filippo Pace MD LAB BLOOD ORDERABLES Final R esult [facility] [address] [place] [address] * (ABNORMAL) CBC (09/13/2017 10:50 AM EDT) WBC 4.58 3.40 - 11.20 K/uL [facility] RBC 4.92 4.50 - 5.50 M/uL [facility] HGB 15.3 13.0 - 17.0 g/dL [facility] HCT 43.9 40.0 - 51.0 % [facility] PLT 242 130 - 400 K/uL [facility] MCV 89.2 79.0 - 98.0 fL [facility] MCH 31.1 27.0 - 34.8 pg [facility] MCHC 34.9 31.5 - 36.0 g/dL [facility] RDW 12.9 10.8 - 14.6 % [facility] MPV 8.4(L) 9.4 - 12.4 fl [facility] NRBC 0.00 /100 WBCs [facility] ABSOLUTE NRBC 0.00 K/uL [facility] Blood 09/13/2017 10:5 0 AM EDT 09/13/2017 10:58 AM EDT us Filippo Pace MD LAB BLOOD ORDERABLES Final R esult Performing Organization Address City/State/[facility] Co de Phone Number [facility] [address] [place] [address] documented in this encounter Visit Diagnoses Diagnosis Bowel habit changes- Primary Other symptoms involving digestive system Abdominal pain, right lower quadrant documented in this encounter Care Teams Training Executive Relationship Specialty Start Date End Date Haider Wolf DO PCP - General 01/12/17 Haider Wolf DO [address] [place] [address] Insurance Assigned Provider 07/28/1805/06 documented as of this encounter Additional Source Comments The information contained in this document represents components of the legal health record. It is not the complete legal health record.[facility]
--- OUTSIDE RECORDS SUMMARY | 2024-12-30 11:10 | XMS_ITS | Encounter Summary ---
Author Organization [facility] Address [address] [place] [address] Phone Care Team Providers Care Joinery Machinist Name Role Phone Haider Wolf DO Primary Care Provider [phone] JanineHaider christiansen DO Unavailable Encounter Details Date Type Department Care Team (Late st Contact Info) Description 01/29/2021 Procedure Pass [facility] Endoscopy Admitting Dept Virtual Department [address] [place] [address] Social History Tobacco Use Types Packs/Day Years [...] Description 12/31/2024 11:30 AM EDT Office Visit [facility] [address] [place] [address] 3rd Floor, [address] [place] [address] Kyree Castillo MD 22 [facility], [address] [address] documented as of this encounter Visit Diagnoses Not on filedocumented in this encounter Care Teams Joinery Machinist Relationship Specialty Start Date End Date Haider Wolf DO PCP - General 01/12/17 Haider Wolf DO [address] [place] [address] Insurance Assigned Provider 07/28/1805/06 documented as of this encounter Additional Source Comments The information contained in this document represents components of the legal health record. It is not the complete legal health record.[facility]
--- OUTSIDE RECORDS SUMMARY | 2024-12-30 11:10 | XMS_ITS | Encounter Summary ---
Author Organization [facility] Address [address] [place] [address] [place] [address] Phone Care Team Providers Care Mannequin Molder Name Role Phone Haider Wolf DO Primary Care Provider [phone] JanineHaider christiansen DO Unavailable Encounter Details Date Type Department Care Team (Late st Contact Info) Description 08/28/2019 Procedure Pass [facility], Ct Scan - [address] [address] Social History Tobacco Use Types Packs/Day Years [...] Description 12/31/2024 11:30 AM EDT Office Visit [facility] [address] [place] [address] 3rd Floor, [address] [place] [address] Kyree Castillo MD 22 [facility], [address] [place] [address] documented as of this encounter Visit Diagnoses Not on filedocumented in this encounter Care Teams Mannequin Molder Relationship Specialty Start Date End Date Haider Wolf DO PCP - General 01/12/17 Haider Wolf DO [address] [place] [address] Insurance Assigned Provider 07/28/1805/06 documented as of this encounter Additional Source Comments The information contained in this document represents components of the legal health record. It is not the complete legal health record.[facility]
--- OUTSIDE RECORDS SUMMARY | 2024-12-30 11:10 | XMS_ITS | Encounter Summary ---
Author Organization [facility] Address [address] [place] [address] Phone Care Team Providers Care Marbleizer Name Role Phone Haider Wolf DO Primary Care Provider [phone] JanineHaider christiansen DO Unavailable Reason for Referral * MRI/CAT Scan - Closed Specialty Diagnoses / Procedures Referred By Yunior boyce Referred To Contact Radiology Diagnoses Abnormal weight loss Abdominal pain, unspecified abdominal location Procedures CT Abdomen/Pelvis Filippo Pace MD Phone: tel: fax: mailto: Referral ID Status Reason Start Date Expiration Date Visits Re quested Visits Authorized [id number] Closed 06/06/2019 10/03/2019 1 1 Encounter Details Date Type Department Care Team (Latest Contact Info) Description 06/07/2019 Transcribe Orders Virtual Department 30 [place] [address] Filippo Pace MD [address] [place] [address] [email or web address] without esophagitis (Primary Dx); Abnormal weight [...] Description 12/31/2024 11:30 AM EDT Office Visit [facility] [address] [place] [address] 3rd Floor, [address] [place] [address] Kyree Castillo MD 22 [place] [facility], [address] [place] [address] [email or web address] documented as of this encounter Results * [...] location documented in this encounter Care Teams Marbleizer Relationship Specialty Start Date End Date Haider Wolf DO PCP - General 01/12/17 Haider Wolf DO [address] [place] [address] Insurance Assigned Provider 07/28/1805/06 documented as of this encounter Additional Source Comments The information contained in this document represents components of the legal health record. It is not the complete legal health record.[facility]
--- OUTSIDE RECORDS SUMMARY | 2024-12-30 11:10 | XMS_ITS | Encounter Summary ---
Author Organization [facility] Address [address] [place] [address] [address] [place] [address] Phone Care Team Providers Care Design Quality Engineer Name Role Phone Haider Wolf DO Primary Care Provider [phone] Haider Wolf DO Unavailable Encounter Details Date Type Department Care Team (Latest Contact Info) Description 06/03/2019 Transcribe Orders Virtual Department 30 [place] [address] Filippo Pace MD [address] [place] [address] [email or web address] Abnormal weight loss (Primary Dx) Social History [...] Description 12/31/2024 11:30 AM EDT Office Visit [facility] [address] [place] [address] 3rd Floor, [address] [place] [address] Kyree Castillo MD [address] [place] [address], [address] [place] [address] [email or web address] documented as of this encounter Results * XR CHEST PA AND LATERAL 2 VIEWS (06/04/2019 10:36 AM EDT) Anatomical Region Laterality Modality Chest Radiographic Nurys ging 06/04/2019 11:0 0 AM EDT Impressions 06/04/2019 11:02 AM EDT No acute pulmonary process. POS: [id number] Narrative 06/04/2019 11:02 AM EDT XR CHEST [...] abnormality. IMPRESSION: No acute pulmonary process. POS: [id number] Filippo Pace MD IMG XR CHEST Final Result documented in this encounter Visit Diagnoses Diagnosis Abnormal weight loss- Primary Loss of weight Abnormal weight loss Loss of weight documented in this encounter Care Teams Design Quality Engineer Relationship Specialty Start Date End Date Haidre Wolf DO [email or web address] PCP - General 01/12/17 Haider Wolf DO [address] [place] [address] [email or web address] Insurance Assigned Provider 07/28/1805/06 documented as of this encounter Additional Source Comments The information contained in this document represents components of the legal health record. It is not the complete legal health record.[facility]
--- OUTSIDE RECORDS SUMMARY | 2024-12-30 11:10 | XMS_ITS | Encounter Summary ---
Author Organization [facility] Address [address] [place] [address] Phone Care Team Providers Care Tricot Knitting Machine Operator Name Role Phone Haider Wolf DO Primary Care Provider [phone] JanineHaider christiansen DO Unavailable Encounter Details Date Type Department Care Team (Late st Contact Info) Description 09/03/2021 Procedure Pass [facility] Endoscopy Admitting Dept Virtual Department [address] [place] [address] Social History Tobacco Use Types Packs/Day Years [...] Description 12/31/2024 11:30 AM EDT Office Visit [facility] [address] [place] [address] 3rd Floor, [address] [place] [address] Kyree Castillo MD 22 [facility], [address] [address] documented as of this encounter Visit Diagnoses Not on filedocumented in this encounter Care Teams Tricot Knitting Machine Operator Relationship Specialty Start Date End Date Haider Wolf DO PCP - General 01/12/17 Haider Wolf DO 179 [place] [address] Insurance Assigned Provider 07/28/1805/06 documented as of this encounter Additional Source Comments The information contained in this document represents components of the legal health record. It is not the complete legal health record.[facility]
--- OUTSIDE RECORDS SUMMARY | 2024-12-30 11:10 | XMS_ITS | Encounter Summary ---
Author Organization [facility] Address [address] [place] [address] Phone Care Team Providers Care Cigarette Tester Name Role Phone Haider Wolf DO Primary Care Provider [phone] JanineHaider christiansen DO Unavailable Encounter Details Date Type Department Care Team (Late Contact Info) Description 02/14/2017 Procedure Pass [facility] Endoscopy Admitting Dept Virtual Department [address] [place] [address] Social History Tobacco Use Types Packs/Day Years [...] Description 12/31/2024 11:30 AM EDT Office Visit [facility] [address] [place] [address] 3rd Floor, [address] [place] [address] Kyree Castillo MD 22 [facility], [address] [address] documented as of this encounter Visit Diagnoses Not on filedocumented in this encounter Care Teams Cigarette Tester Relationship Specialty Start Date End Date Haider Wolf DO PCP - General 01/12/17 Haider Wolf DO 179 [place] [address] Insurance Assigned Provider 07/28/1805/06 documented as of this encounter Additional Source Comments The information contained in this document represents components of the legal health record. It is not the complete legal health record.[facility]
--- OUTSIDE RECORDS SUMMARY | 2024-12-30 11:10 | XMS_ITS | Encounter Summary ---
Author Organization [facility] Address [address] [place] [address] [place] [address] Phone Care Team Providers Care Utility Inspector Name Role Phone Haider Wolf DO Primary Care Provider [phone] JanineHaider christiansen DO Unavailable Encounter Details Date Type Department Care Team (Late st Contact Info) Description 09/25/2020 Procedure Pass [facility], Ct Scan - [address] [address] Social History Tobacco Use Types Packs/Day Years [...] Description 12/31/2024 11:30 AM EDT Office Visit [facility] [address] [place] [address] 3rd Floor, [address] [place] [address] Kyree Castillo MD 22 [facility], [address] [place] [address] documented as of this encounter Visit Diagnoses Not on filedocumented in this encounter Care Teams Utility Inspector Relationship Specialty Start Date End Date Haider Wolf DO [email or web address] PCP - General 01/12/17 Haider Wolf DO 179 [place] [address] Insurance Assigned Provider 07/28/1805/06 documented as of this encounter Additional Source Comments The information contained in this document represents components of the legal health record. It is not the complete legal health record.[facility]
--- OUTSIDE RECORDS SUMMARY | 2024-12-30 11:10 | XMS_ITS | Encounter Summary ---
Author Organization [facility] Address [address] [place] [address] [place] [address] Phone Care Team Providers Care Newsagent Name Role Phone Haider Wolf DO Primary Care Provider [phone] Haider Wolf DO Unavailable Encounter Details Date Type Department Care Team (Latest Contact Info) Description 11/01/2021 Transcribe Orders Virtual Department 30 [place] [address] Lacey Mason PA [address] [place] [address] [place] [address] Osteoporosis, unspecified osteoporosis type, unspecified pathological fracture [...] Description 12/31/2024 11:30 AM EDT Office Visit [facility] [address] [place] [address] 3rd Floor, [address] [place] [address] Kyree Castillo MD [address] [place] [address], [address] [place] [address] [email or web address] documented as of this encounter Results * [...] presence documented in this encounter Care Teams Newsagent Relationship Specialty Start Date End Date Haider Wolf DO PCP - General 01/12/17 Haider Wolf DO [address] [place] [address] Insurance Assigned Provider 07/28/1805/06 documented as of this encounter Additional Source Comments The information contained in this document represents components of the legal health record. It is not the complete legal health record.[facility]
--- OUTSIDE RECORDS SUMMARY | 2024-12-30 11:10 | XMS_ITS | Encounter Summary ---
Author Organization [facility] Address [address] [place] [address] Phone Care Team Providers Care Broadcast Designer Name Role Phone Haider oWlf DO Primary Care Provider [phone] Encounter Details Date Type Department Care Team (Late st Contact Info) Description 05/03/2024 Procedure Pass [facility] Endoscopy Admitting Dept Virtual Department 30 [place] [address] Social History Tobacco Use Types Packs/Day Years [...] Description 12/31/2024 11:30 AM EDT Office Visit [facility] [address] [place] [address] 3rd Floor, [address] [place] [address] Kyree Castillo MD 22 [facility], [address] [place] [address] [email or web address] documented as of this encounter Visit Diagnoses Not on filedocumented in this encounter Care Teams Broadcast Designer Relationship Specialty Start Date End Date Haider Wolf DO PCP - General 01/12/17 documented as of this encounter Additional Source Comments The information contained in this document represents components of the legal health record. It is not the complete legal health record.[facility]
--- OUTSIDE RECORDS SUMMARY | 2024-12-30 11:10 | XMS_ITS | Encounter Summary ---
Author Organization [facility] Address [address] [place] [address] Phone Care Team Providers Care Grizzlyman Name Role Phone Haider Wolf DO Primary Care Provider [phone] JanineHaider christiansen DO Unavailable Encounter Details Date Type Department Care Team (Late Contact Info) Description 11/15/2017 Procedure Pass [facility] Endoscopy Admitting Dept Virtual Department [address] [place] [address] Social History Tobacco Use Types Packs/Day Years [...] Description 12/31/2024 11:30 AM EDT Office Visit [facility] [address] [place] [address] 3rd Floor, [address] [place] [address] Kyree Castillo MD 22 [facility], [address] [address] documented as of this encounter Visit Diagnoses Not on filedocumented in this encounter Care Teams Grizzlyman Relationship Specialty Start Date End Date Haider Wolf DO [email or web address] PCP - General 01/12/17 Haider Wolf DO [address] [place] [address] [email or web address] Insurance Assigned Provider 07/28/1805/06 documented as of this encounter Additional Source Comments The information contained in this document represents components of the legal health record. It is not the complete legal health record.[facility]
--- OUTSIDE RECORDS SUMMARY | 2024-12-30 11:10 | XMS_ITS | Encounter Summary ---
Author Organization [facility] Address [address] [place] [address] [place] [address] Phone Care Team Providers Care Sky Line Yarder Name Role Phone Haider Wolf DO Primary Care Provider [phone] Haider Wolf DO Unavailable Encounter Details Date Type Department Care Team (Late Contact Info) Description 09/05/2017 Ancillary Orders Virtual Department 30 [place] [address] Criselda Ernestina, TASNEME 54 Gurpreet Francois. Ortiz. [address] [place] [address] Other specified disorders of the male genital [...] Description 12/31/2024 11:30 AM EDT Office Visit [facility] [address] [place] [address] 3rd Floor, [address] [place] [address] Kyree Castillo MD [address], [address] [place] [address] [email or web address] documented as of this encounter Results * [...] organs documented in this encounter Care Teams Sky Line Yarder Relationship Specialty Start Date End Date Haider Wolf DO [email or web address] PCP - General 01/12/17 Haider Wolf GianniDO [address] [place] [address] [email or web address] Insurance Assigned Provider 07/28/1805/06 documented as of this encounter Additional Source Comments The information contained in this document represents components of the legal health record. It is not the complete legal health record.[facility]
--- OUTSIDE RECORDS SUMMARY | 2024-12-30 11:11 | XMS_ITS | Clinical Summary ---
Author Organization [facility] Address [address] [place] [address] Phone Care Team Providers Care Inspector Filter Tip Name Role Phone Fortunato Hawkins DO Primary Care Provider [phone] Allergies Active Allergy Reactions Criticality Noted Date [...] AM EDT Office Visit [facility] [address] [place] [address] 3rd Floor, [address] [place] [address] Kyree Castillo MD 22 [facility], [address] [place] [address] [email or web address] Health Maintenance Due Date Last Done Comments [...] Admit Type: Outpatient Gender: Male Room: [facility] 05 Referring MD: FORTUNATO HAWKINS DO Exam [...] monitored continuously. The Olympus adult variable colonoscope [id number] #1was introduced through the anus and advanced [...] 12:19 PM Procedure Code(s): --- Professional --- 05721, Colonoscopy, flexible; diagnostic, including collection of specimen(s) by brushing or washing, when performed (separateprocedure) --- Technical --- 65127, Colonoscopy, flexible; diagnostic, including collection of specimen(s) by brushing or washing, when performed (separateprocedure) Diagnosis Code(s): --- Professional --- Z86.010, Personal history of colonic polyps K57.30, Diverticulosis of large intestine without perforation or abscess without bleeding --- Technical --- Z86.010, Personal history of colonic polyps K57.30, Diverticulosis of large intestine without perforation or abscess without bleeding CPT copyright 2018 [employer]. All rights reserved. The codes documented in this report are preliminary and upon training project manager reviewmay be revised to meet current compliance requirements. Procedure Date: 01/29/2021 12:19:48 PM 30 [place] [address] Fortunato A Luciano DO GI PROCEDURE ORDERABLES Final Re sult from Last 3 Months or Most Recently Relevant to Health Maintenance Insurance [facility] PPO CROSS OUT OF STATE PPO Member Subscriber Plan / Payer (Ef fective 2022-Present) Name:Main Sherman Jr. Member ID:[id number] Relation to Subscriber:Self Name:Main Sherman Jr. Subscriber ID:[id number] Payer ID:[id number] ([facility]) Type:PPO Address: [place] [address] OUT OF [facility] PPO CROSS OUT OF [facility] PPO PPO PPO Care Teams Inspector Filter Tip Relationship Specialty Start Date End Date Fortunato Hawkins DO [email or web address] PCP - General 01/12/17 Additional Source Comments The information contained in this document represents components of the legal health record. It is not the complete legal health record.[facility]
--- OUTSIDE RECORDS SUMMARY | 2024-12-30 11:11 | XMS_ITS | Encounter Summary ---
Author Organization [facility] Address [address] [place] [address] [place] [address] Phone Care Team Providers Care Sifter Operator Name Role Phone Haider Wolf DO Primary Care Provider [phone] Haider Wolf DO Unavailable Encounter Details Date Type Department Care Team (Latest Contact Info) Description 03/16/2022 Transcribe Orders Virtual Department 30 [place] [address] Lacey Mason PA [address] [place] [address] [place] [address] Left shoulder pain, unspecified chronicity (Primary Dx) [...] Description 12/31/2024 11:30 AM EDT Office Visit [facility] [address] [place] [address] 3rd [facility], [address] [place] [address] Kyree Castillo MD 22 [facility] 301 [place] [address] [email or web address] documented as of this encounter Visit Diagnoses Diagnosis Left shoulder pain, unspecified chronicity- Primary documented in this encounter Care Teams Sifter Operator Relationship Specialty Start Date End Date Haider Wolf DO [email or web address] PCP - General 01/12/17 Haider Wolf DO 179 [place] [address] [email or web address] Insurance Assigned Provider 07/28/1805/06 documented as of this encounter Additional Source Comments The information contained in this document represents components of the legal health record. It is not the complete legal health record.[facility]
--- OUTSIDE RECORDS SUMMARY | 2024-12-30 11:11 | XMS_ITS | Encounter Summary ---
Author Organization [facility] Address [address] [place] [address] [place] [address] Phone Care Team Providers Care Delinquent Tax Collector Name Role Phone Haider Wolf DO Primary Care Provider [phone] Haider Wolf DO Unavailable Encounter Details Date Type Department Care Team (Late Contact Info) Description 01/25/2018 Ancillary Orders Virtual Department 30 [place] [address] Criselda Ernestina, TASNEEM 54 Gurpreet Francois. Ortiz. [address] [place] [address] Tachycardia Social History Tobacco Use Types Packs/Day [...] Description 12/31/2024 11:30 AM EDT Office Visit [facility] [address] [place] [address] 3rd Floor, [address] [place] [address] Kyree Castillo MD 22 [facility], [address] [place] [address] [email or web address] documented as of this encounter Results * Holter Monitor 24 Hours (02/02/2018 12:15 PM EST) Total Beats 124,795 [facility] Ventricular Ectopy Total Beats 1 [facility] Ventricular Ectopy Single Beats 1 [facility] Ventricular Pair 0 [facility] Ventricular Runs 0 [facility] Supraventricular Total Beats 4 [facility] Supraventricular Ectopic Single Beats 4 [facility] Supraventricular Pairs 0 [facility] Supraventricular Runs 0 [facility] Mean Heart Rate 87 BPM [facility] Maximum Heart Rate 129 BPM [facility] Minimum Heart Rate 49 BPM [facility] Longest RR 1.600 S [facility] Anatomical Region Laterality Modality Heart Other 02/01/2018 [...] tachycardia documented in this encounter Care Teams Delinquent Tax Collector Relationship Specialty Start Date End Date Haider Wolf DO [email or web address] PCP - General 01/12/17 Haider Wolf DO [address] [place] [address] [email or web address] Insurance Assigned Provider 07/28/1805/06 documented as of this encounter Additional Source Comments The information contained in this document represents components of the legal health record. It is not the complete legal health record.[facility]
--- OUTSIDE RECORDS SUMMARY | 2024-12-30 11:11 | XMS_ITS | Encounter Summary ---
Author Organization [facility] Address [address] [place] [address] Phone Care Team Providers Care Automation Control Technician Name Role Phone Haider Wolf DO Primary Care Provider [phone] JanineHaider christiansen DO Unavailable Encounter Details Date Type Department Care Team (Late st Contact Info) Description 02/12/2019 Procedure Pass [facility] Endoscopy Admitting Dept Virtual Department [address] [place] [address] Social History Tobacco Use Types Packs/Day Years [...] Description 12/31/2024 11:30 AM EDT Office Visit [facility] [address] [place] [address] 3rd Floor, [address] [place] [address] Kyree Castillo MD 22 [facility], [address] [address] documented as of this encounter Visit Diagnoses Not on filedocumented in this encounter Care Teams Automation Control Technician Relationship Specialty Start Date End Date Haider Wolf DO [email or web address] PCP - General 01/12/17 Haider Wolf DO [address] [place] [address] [email or web address] Insurance Assigned Provider 07/28/1805/06 documented as of this encounter Additional Source Comments The information contained in this document represents components of the legal health record. It is not the complete legal health record.[facility]
--- OUTSIDE RECORDS SUMMARY | 2024-12-30 11:11 | XMS_ITS | Encounter Summary ---
Author Organization [facility] Address [address] [place] [address] Phone Care Team Providers Care Smoke Jumper Name Role Phone Haider Wolf DO Primary Care Provider [phone] Haider Wolf DO Unavailable Reason for Referral * - Closed Specialty Diagnoses / Procedures Referred By Yunior boyce Referred To Contact Diagnoses Atypical chest pain Procedures Stress Test Exercise Haider Wolf DO Phone: tel: fax: mailto:[email or web address] Referral ID Status Reason Start Date Expiration Date Visits Re quested Visits Authorized [id number] Closed 08/06/2018 08/06/2019 1 1 Encounter Details Date Type Department Care Team (Late st Contact Info) Description 08/06/2018 Ancillary Orders Virtual Department 30 [place] [address] Haider Wolf DO 179 [facility] [place] [address] [email or web address] Atypical chest pain Social History Tobacco Use [...] Description 12/31/2024 11:30 AM EDT Office Visit [facility] [address] [facility] 3rd Floor, [address] [place] [address] Kyree Castillo MD 22 [facility], [address] [place] [address] [email or web address] documented as of this encounter Results * Stress Test Exercise (08/14/2018 8:49 AM EDT) Max BP Systolic 156 mmHg [facility] Max BP Diastolic 78 mmHg [facility] Max HR 157 BPM [facility] Resting HR 92 BPM [facility] Resting BP Systolic 120 mmHg [facility] Resting BP Diastolic 84 mmHg [facility] Peak METS 10.1 METS [facility] Peak HR 157 BPM [facility] Anatomical Region Laterality Modality Heart Other 08/14/2018 [...] pain documented in this encounter Care Teams Smoke Jumper Relationship Specialty Start Date End Date Haider Wolf DO PCP - General 01/12/17 Haider Wolf DO 179 [place] [address] Insurance Assigned Provider 07/28/1805/06 documented as of this encounter Additional Source Comments The information contained in this document represents components of the legal health record. It is not the complete legal health record.[facility]
== END 2024-12-30 09:47 | disposition home or self-care (01) ==
LOC: HO.HMGAL 09:44
PROVIDERS: PCP Internal Medicine; Visit Provider Registered Nurse Emergency
DX: J30.89 Other allergic rhinitis (principal)
CPT/HCPCS: 95117; 95165

== ENCOUNTER 2025-01-13 15:13 | Outpatient (AMB) | payer BC, SELFPAY ==
--- OUTSIDE RECORDS SUMMARY | 2025-01-13 19:25 | XMS_ITS | Encounter Summary ---
Author Organization [facility] Address [address] [place] [address] Phone Care Team Providers Care Utility Tractor Operator Name Role Phone Haider Wolf DO Primary Care Provider [phone] JanineHaider christiansen DO Unavailable Encounter Details Date Type Department Care Team (Late st Contact Info) Description 01/29/2021 Procedure Pass [facility] Endoscopy Admitting Dept Virtual Department [address] [place] [address] Social History Tobacco Use Types Packs/Day Years [...] Care Team (Late st Contact Info) Description 04/02/2025 3:15 PM EST Office Visit [facility] [address] [place] [address] 3rd Floor, [address] [place] [address] Kyree Castillo MD 22 [facility], [address] [address] documented as of this encounter Visit Diagnoses Not on filedocumented in this encounter Care Teams Utility Tractor Operator Relationship Specialty Start Date End Date Haider Wolf DO [email or web address] PCP - General 01/12/17 Haider Wolf DO 179 [place] [address] [email or web address] Insurance Assigned Provider 07/28/1805/06 documented as of this encounter Additional Source Comments The information contained in this document represents components of the legal health record. It is not the complete legal health record.[facility]
--- OUTSIDE RECORDS SUMMARY | 2025-01-13 19:25 | XMS_ITS | Encounter Summary ---
Author Organization [facility] Address [address] [place] [address] Phone Care Team Providers Care Optimization Engineer Name Role Phone Haider Wolf DO Primary Care Provider [phone] JanineHaider christiansen Unavailable Reason for Referral * MRI/CAT Scan - Closed Specialty Diagnoses / Procedures Referred By Yunior boyce Referred To Contact Radiology Diagnoses RLQ abdominal pain Change in bowel habits Procedures CT Abdomen/Pelvis Filippo Pace MD Phone: tel: fax: mailto:[email or web address] Referral ID Status Reason Start Date Expiration Date Visits Re quested Visits Authorized [id number] Closed 09/13/2017 11/12/2017 1 1 Encounter Details Date Type Department Care Team (Late st Contact Info) Description 09/13/2017 Ancillary Orders Virtual Department 30 [place] [address] Filippo Pace MD [address] [place] [address] [email or web address] RLQ abdominal pain; Change in bowel habits [...] Description 04/02/2025 3:15 PM EST Office [facility] [address] [place] [address] 3rd Floor, [address] [place] [address] Kyree Castillo MD 22 [facility], [address] [place] [address] [email or web address] documented as of this encounter Results * [...] system documented in this encounter Care Teams Optimization Engineer Relationship Specialty Start Date End Date Haider Wolf DO PCP - General 01/12/17 Haider Wolf DO 179 [place] [address] [email or web address] Insurance Assigned Provider 07/28/1805/06 documented as of this encounter Additional Source Comments The information contained in this document represents components of the legal health record. It is not the complete legal health record.[facility]
--- OUTSIDE RECORDS SUMMARY | 2025-01-13 19:25 | XMS_ITS | Encounter Summary ---
Author Organization [facility] [place] [facility] Address [address] [place] [address] Phone Care Team Providers Care Foreign Legal Consultant Name Role Phone Haider Wolf DO Primary Care Provider [phone] JanineHaider christiansen DO Unavailable Encounter Details Date Type Department Care Team (Late st Contact Info) Description 02/14/2017 Procedure Pass [facility] Endoscopy Admitting Dept Virtual Department 30 [place] [address] Social History Tobacco Use Types Packs/Day Years [...] Department Care Team (Late Contact Info) Description 04/02/2025 3:15 PM EST Office Visit [facility] [address] [place] [address] 3rd Floor, [address] [place] [address] Kyree Castillo MD 22 [facility], [address] [address] documented as of this encounter Visit Diagnoses Not on filedocumented in this encounter Care Teams Foreign Legal Consultant Relationship Specialty Start Date End Date Haider Wolf DO [email or web address] PCP - General 01/12/17 Haider Wolf DO 179 [place] [address] [email or web address] Insurance Assigned Provider 07/28/1805/06 documented as of this encounter Additional Source Comments The information contained in this document represents components of the legal health record. It is not the complete legal health record.[facility]
--- OUTSIDE RECORDS SUMMARY | 2025-01-13 19:25 | XMS_ITS | Encounter Summary ---
Author Organization [facility] Address [address] [place] [address] [place] [address] Phone Care Team Providers Care Student Finance Specialist Name Role Phone Haider Wolf DO Primary Care Provider [phone] JanineHaider christiansen DO Unavailable Encounter Details Date Type Department Care Team (Late st Contact Info) Description 09/25/2020 Procedure Pass [facility], Ct Scan - [address] [address] Social History Tobacco Use Types Packs/Day Years [...] Description 04/02/2025 3:15 PM EST Office Visit [facility] [address] [place] [address] 3rd Floor, [address] [place] [address] Kyree Castillo MD 22 [facility], [address] [place] [address] documented as of this encounter Visit Diagnoses Not on filedocumented in this encounter Care Teams Student Finance Specialist Relationship Specialty Start Date End Date Haider Wolf DO [email or web address] PCP - General 01/12/17 Haider Wolf DO 179 [place] [address] [email or web address] Insurance Assigned Provider 07/28/1805/06 documented as of this encounter Additional Source Comments The information contained in this document represents components of the legal health record. It is not the complete legal health record.[facility]
--- OUTSIDE RECORDS SUMMARY | 2025-01-13 19:25 | XMS_ITS | Encounter Summary ---
Author Organization [facility] Address [address] [place] [address] Phone Care Team Providers Care Host/Hostess Restaurant Name Role Phone Haider Wolf DO Primary Care Provider [phone] JanineHaider christiansen DO Unavailable Encounter Details Date Type Department Care Team (Late st Contact Info) Description 08/28/2019 Procedure Pass [facility], Ct Scan - [address] [address] Social History Tobacco Use Types Packs/Day Years [...] Description 04/02/2025 3:15 PM EST Office Visit [facility] [address] [place] [address] 3rd Floor, [address] [place] [address] Kyree Castillo MD 22 [facility], [address] [address] documented as of this encounter Visit Diagnoses Not on filedocumented in this encounter Care Teams Host/Hostess Restaurant Relationship Specialty Start Date End Date Haider Wolf DO PCP - General 01/12/17 Haider Wolf DO 179 [place] [address] Insurance Assigned Provider 07/28/1805/06 documented as of this encounter Additional Source Comments The information contained in this document represents components of the legal health record. It is not the complete legal health record.[facility]
--- OUTSIDE RECORDS SUMMARY | 2025-01-13 19:25 | XMS_ITS | Encounter Summary ---
Author Organization [facility] Address [address] [place] [address] [place] [address] Phone Care Team Providers Care Coagulating Operator Name Role Phone Haider Wolf DO Primary Care Provider [phone] Haider Wolf DO Unavailable Encounter Details Date Type Department Care Team (Latest Contact Info) Description 05/27/2019 Transcribe Orders [facility] [address] 2nd [place] [address] Filippo Pace MD 10 [facility] 2 [place] [address] [email or web address] Loss of weight (Primary Dx); Gastroesophageal reflux [...] Description 04/02/2025 3:15 PM EST Office Visit [facility] [address] [place] [address] 3rd Floor, [address] [place], [place] [phone] Kyree Castillo MD [address] [place] [address], [address] [place] [address] [email or web address] documented as of this encounter Results * TSH (05/27/2019 1:51 PM EST) Pathologist [facility] TSH 1.37 0.27 - 4.20 uIU/mL [facility] Blood 05/27/2019 1:51 PM EST 05/27/2019 1:57 PM EST us Filippo Pace MD LAB BLOOD ORDERABLES Final R esult [address] [address] * C-Reactive Protein (05/27/2019 1:51 PM EST) [facility] C REACTIVE PROTEIN <0.3 0.0 - 4.0 mg/L [facility] Blood 05/27/2019 1:51 PM EST 05/27/2019 1:57 PM EST us Filippo Pace MD LAB BLOOD ORDERABLES Final R esult [address] [address] * (ABNORMAL) Comprehensive metabolic panel (05/27/2019 1:51 PM EST) [facility] SODIUM 140 133 - 146 mmol/L [facility] POTASSIUM 3.5 3.3 - 5.1 mmol/L [facility] CHLORIDE 104 96 - 108 mmol/L [facility] CO2 24 21 - 35 mmol/L [facility] BUN 8 6 - 19 mg/dL [facility] CREATININE 1.10 0.5 - 1.5 mg/dL [facility] GLUCOSE 125(H) 70 - 99 mg/dL [facility] ALBUMIN 4.6 3.9 - 4.8 g/dL [facility] TOTAL PROTEIN 7.5 6.5 - 8.0 g/dL [facility] CALCIUM 9.3 8.4 - 10.3 mg/dL [facility] ALKALINE PHOSPHATASE 60 39 - 117 U/L [facility] TOTAL BILIRUBIN 0.6 0.0 - 1.2 mg/dL [facility] AST 34 0 - 37 U/L [facility] ALT 17 0 - 40 U/L [facility] GLOBULIN 2.9 1 - 4.8 g/dL [facility] EGFR 75 >59 mL/min/1.[address] [facility] Comment:If patient is black, multiply result by 1.159. Estimated glomerular filtration rate calculated using the CKD-EPI equation. ANION GAP 16 10 - 20 mmol/L [facility] Blood 05/27/2019 1:51 PM EST 05/27/2019 1:57 PM EST us Filippo Pace MD LAB BLOOD ORDERABLES Final R esult Performing Organization Address City/State/[facility] Co de Phone Number [address] [address] * CBC (05/27/2019 1:51 PM EST) WBC 5.57 4.00 - 11.00 K/uL [facility] Comment:Note Reference Range updates to all CBC and Differential results. RBC 5.22 4.23 - 5.82 M/uL [facility] HGB 16.3 13.4 - 17.5 g/dL [facility] Comment:Note updated Referen ce Ranges for all CBC and Differential results. HCT 46.5 37.0 - 51.0 % [facility] PLT 289 140 - 430 K/uL [facility] MCV 89.1 78.0 - 97.[address] [facility] MCH 31.2 25.0 - 33.[address] [facility] MCHC 35.1 32.0 - 36.0 g/dL [facility] RDW 12.9 11.0 - 15.0 % [facility] MPV 8.5 8.4 - 12.8 [facility] NRBC 0.00 0 /[address] [facility] ABSOLUTE NRBC 0.00 0 K/uL [facility] Blood 05/27/2019 1:51 PM EST 05/27/2019 1:57 PM EST Filippo Pace MD LAB BLOOD ORDERABLES Final R esult Performing Organization Address City/[facility]/ZIP Co de Phone Number [address] [address] * Immunoglobulin A (05/27/2019 1:51 PM EST) IgA 202 70 - 400 mg/dL [facility] Blood 05/27/2019 1:51 PM EST 05/27/2019 1:57 PM EST Filippo Pace MD LAB BLOOD ORDERABLES Final R [facility] Performing Organization Address [facility] Co de Phone Number [address] [address] * Gliadin deamidated antibody, IgG/IgA (05/27/2019 1:51 PM EST) Gliadin Ab, IGA <10.0 <20.0 (Negative) U [facility]/PATH [address] GLIADIN AB IGG <10.0 <20.0 (Negative) U [facility] [address] Blood 05/27/2019 1:51 PM EST 05/27/2019 1:59 PM EST Filippo Pace MD LAB BLOOD ORDERABLES Final R esult Performing Organization Address City/[facility]/ZIP Co de Phone Number [facility] [place] [address] * Tissue transglutaminase IgA (05/27/2019 1:51 PM EST) TTG IGA ANTIBODY <1.2 <4.0 (Negative) U/mL [facility] Blood 05/27/2019 1:51 PM EST 05/27/2019 1:59 PM EST Filippo Pace MD LAB BLOOD ORDERABLES Final R esult [facility] [address] [place] [address] documented in this encounter Visit Diagnoses Diagnosis Loss of weight- Primary Gastroesophageal reflux disease without esophagitis Esophageal reflux documented in this encounter Care Teams Coagulating Operator Relationship Specialty Start Date End Date Haider Wolf DO [email or web address] PCP - General 01/12/17 Haider Wolf DO 179 [place] [address] [email or web address] Insurance Assigned Provider 07/28/1805/06 documented as of this encounter Additional Source Comments The information contained in this document represents components of the legal health record. It is not the complete legal health record.[facility]
--- OUTSIDE RECORDS SUMMARY | 2025-01-13 19:25 | XMS_ITS | Encounter Summary ---
Author Organization [facility] Address [address] [place] [address] Phone Care Team Providers Care Bobbin Handler Name Role Phone Haider Wolf DO Primary Care Provider [phone] LucianoHaider DO Unavailable Reason for Referral * [...] Expiration Date Visits Re quested Visits Authorized [id number] Closed 06/04/2021 07/03/2021 1 1 Encounter Details Date Type Department Care Team (Latest Contact Info) Description 09/25/2020 Transcribe Orders Virtual Department [address] [place] [address] Lacey Mason PA [address] [place] [address] [place] [address] 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 [...] Description 04/02/2025 3:15 PM EST Office Visit [facility] [address] [place] [address] 3rd Floor, [address] [place] [address] Kyree Castillo MD 22 [facility], [address] [place], [place] [address] [email or web address] documented as of this encounter Results * [...] left maxillary second molar (ADA #16). 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 It is not the complete legal health record.[facility]
--- OUTSIDE RECORDS SUMMARY | 2025-01-13 19:25 | XMS_ITS | Encounter Summary ---
Author Organization [facility] Address [address] [place] [address] [place] [address] Phone Care Team Providers Care Knitting Inspector Name Role Phone Haider Wolf DO Primary Care Provider [phone] Haider Wolf DO Unavailable Encounter Details Date Type Department Care Team (Late Contact Info) Description 09/05/2017 Ancillary Orders Virtual Department 30 [place] [address] Criselda Ernestina, TASNEEM [address] [place] [address] [email or web address] Other specified disorders of the male genital [...] Description 04/02/2025 3:15 PM EST Office Visit [facility] [address] [place] [address] 3rd Floor, [address] [place] [address] Kyree Castillo MD [address] [place] [address], [address] [place] [address] [email or web address] documented as of this encounter Results * [...] unlikely to be clinically significant. POS [id number] Ernestina Aburto PA-C IMG US SCROTUM/PENIS Final R esult documented in this encounter Visit Diagnoses Diagnosis Other specified disorders of the male genital organs Other specified disorders of the male genital organs documented in this encounter Care Teams Knitting Inspector Relationship Specialty Start Date End Date Haider Wolf DO [email or web address] PCP - General 01/12/17 Haider Wolf DO 179 [place] [address] [email or web address] Insurance Assigned Provider 07/28/1805/06 documented as of this encounter Additional Source Comments The information contained in this document represents components of the legal health record. It is not the complete legal health record.[facility]
--- OUTSIDE RECORDS SUMMARY | 2025-01-13 19:25 | XMS_ITS | Encounter Summary ---
Author Organization [facility] Address [address] [place] [address] Phone Care Team Providers Care Bus Person Dishwasher Name Role Phone Haider Wolf DO Primary Care Provider [phone] JanineHaider christiansen DO Unavailable Encounter Details Date Type Department Care Team (Late st Contact Info) Description 09/13/2017 Procedure Pass [facility], Ct Scan - [address] [address] Social History Tobacco Use Types Packs/Day Years [...] Description 04/02/2025 3:15 PM EST Office Visit [facility] [address] [place] [address] 3rd Floor, [address] [place] [address] Kyree Castillo MD 22 [facility], [address] [address] documented as of this encounter Visit Diagnoses Not on filedocumented in this encounter Care Teams Bus Person Dishwasher Relationship Specialty Start Date End Date Haider Wolf DO PCP - General 01/12/17 Haider Wolf DO 179 [place] [address] Insurance Assigned Provider 07/28/1805/06 documented as of this encounter Additional Source Comments The information contained in this document represents components of the legal health record. It is not the complete legal health record.[facility]
--- OUTSIDE RECORDS SUMMARY | 2025-01-13 19:25 | XMS_ITS | Encounter Summary ---
Author Organization [facility] Address [address] [place] [address] Phone Care Team Providers Care Spindle Repairer Name Role Phone Haider Wolf DO Primary Care Provider [phone] JanineHaider christiansen DO Unavailable Reason for Referral * MRI/CAT Scan - Closed Specialty Diagnoses / Procedures Referred By Yunior boyce Referred To Contact Radiology Diagnoses Abnormal weight loss Abdominal pain, unspecified abdominal location Procedures CT Abdomen/Pelvis Filippo Pace MD Phone: tel: fax: mailto:[email or web address] Referral ID Status Reason Start Date Expiration Date Visits Re quested Visits Authorized [id number] Closed 06/06/2019 10/03/2019 1 1 Encounter Details Date Type Department Care Team (Latest Contact Info) Description 06/07/2019 Transcribe Orders Virtual Department 30 [place] [address] Filippo Pace MD [address] [place] [address] [email or web address] GERD without esophagitis (Primary Dx); Abnormal weight [...] Description 04/02/2025 3:15 PM EST Office Visit [facility] [address] [place] [address] 3rd Floor, [address] [place] [address] Kyree Castillo MD 22 [facility], [address] [place] [address] [email or web address] documented as of this encounter Results * [...] location documented in this encounter Care Teams Spindle Repairer Relationship Specialty Start Date End Date Haider Wolf DO PCP - General 01/12/17 Haider Wolf DO 179 [place] [address] Insurance Assigned Provider 07/28/1805/06 documented as of this encounter Additional Source Comments The information contained in this document represents components of the legal health record. It is not the complete legal health record.[facility]
--- OUTSIDE RECORDS SUMMARY | 2025-01-13 19:25 | XMS_ITS | Encounter Summary ---
Author Organization [facility] Address [address] [place] [address] [place] [address] Phone Care Team Providers Care Drying Rack Changer Name Role Phone Haider Wolf DO Primary Care Provider [phone] Haider Wolf DO Unavailable Encounter Details Date Type Department Care Team (Latest Contact Info) Description 09/13/2017 Transcribe Orders [facility] [address] 2nd [place] [address] Filippo Pace MD [address] [facility] 2 [place] [address] [email or web address] Bowel habit changes (Primary Dx); Abdominal pain, [...] Description 04/02/2025 3:15 PM EST Office Visit [facility] [address] [place] [address] 3rd Floor, [address] [place], [place] [phone] Kyree Castillo MD [address] [place] [address], [address] [place] [address] [email or web address] documented as of this encounter Results * (ABNORMAL) Urinalysis (09/13/2017 10:50 AM EDT) COLOR Yellow Yellow [facility] CLARITY Clear [facility] GLUCOSE Negative Negative [facility] BILI Negative Negative [facility] KETONES Negative Negative [facility] SPECIFIC GRAVITY 1.020 1.005 - 1.030 [facility] BLOOD Trace(A) Negative [facility] PH 7.0 5.0 - 8.0 [facility] Protein-UA Negative Negative [facility] NITRITE Negative Negative [facility] Leukocyte esterase, ur Negative Negative [facility] Urine (Urine) 09/13/2017 10: 50 AM EDT 09/13/2017 11:12 AM EDT us Filippo Pace MD URINE ORDERABLES Final Resul t Performing Organization Address [facility] Co de Phone Number [address] [address] * C-Reactive Protein (09/13/2017 10:50 AM EDT) Pathologist [facility] C REACTIVE PROTEIN <0.3 0.0 - 4.0 mg/L [facility] Comment:New Reference Range and Measuring Units effective 08/09/17. Blood 09/13/2017 10:5 0 AM EDT 09/13/2017 10:58 AM EDT us Filippo Pace MD LAB BLOOD ORDERABLES Final R esult Performing Organization Address City/[facility]/ZIP Co de Phone Number [address] [address] * (ABNORMAL) Comprehensive metabolic panel (09/13/2017 10:50 AM EDT) Pathologist [facility] SODIUM 139 133 - 146 mmol/L [facility] POTASSIUM 4.1 3.3 - 5.1 mmol/L [facility] CHLORIDE 102 96 - 108 mmol/L [facility] CO2 27 21 - 35 mmol/L [facility] BUN 8 6 - 19 mg/dL [facility] CREATININE 1.20 0.5 - 1.5 mg/dL [facility] GLUCOSE 105(H) 70 - 99 mg/dL [facility] ALBUMIN 4.0 3.9 - 4.8 g/dL [facility] TOTAL PROTEIN 6.7 6.5 - 8.0 g/dL [facility] CALCIUM 8.6 8.4 - 10.3 mg/dL [facility] ALKALINE PHOSPHATASE 73 39 - 117 U/L [facility] TOTAL BILIRUBIN 0.4 0.0 - 1.2 mg/dL [facility] AST 22 0 - 37 U/L [facility] ALT 16 0 - 40 U/L [facility] GLOBULIN 2.7 1 - 4.8 g/dL [facility] EGFR 69 >59 mL/min/1.7 3m2 [facility] Comment:If patient is black, multiply result by 1.159. Estimated glomerular filtration rate calculated using the CKD-EPI equation. ANION GAP 14 10 - 20 mmol/L [facility] Blood 09/13/2017 10:5 0 AM EDT 09/13/2017 10:58 AM EDT us Filippo Pace MD LAB BLOOD ORDERABLES Final R esult [facility] [address] [place] [address] * (ABNORMAL) CBC (09/13/2017 10:50 AM EDT) WBC 4.58 3.40 - 11.20 K/uL [facility] RBC 4.92 4.50 - 5.50 M/uL [facility] HGB 15.3 13.0 - 17.0 g/dL [facility] HCT 43.9 40.0 - 51.0 % [facility] PLT 242 130 - 400 K/uL [facility] MCV 89.2 79.0 - 98.0 fL [facility] MCH 31.1 27.0 - 34.8 pg [facility] MCHC 34.9 31.5 - 36.0 g/dL [facility] RDW 12.9 10.8 - 14.6 % [facility] MPV 8.4(L) 9.4 - 12.4 fl [facility] NRBC 0.00 /100 WBCs [facility] ABSOLUTE NRBC 0.00 K/uL [facility] Blood 09/13/2017 10:5 0 AM EDT 09/13/2017 10:58 AM EDT us Filippo Pace MD LAB BLOOD ORDERABLES Final R esult Performing Organization Address City/State/[facility] Co de Phone Number [facility] [address] [place] [address] documented in this encounter Visit Diagnoses Diagnosis Bowel habit changes- Primary Other symptoms involving digestive system Abdominal pain, right lower quadrant documented in this encounter Care Teams Drying Rack Changer Relationship Specialty Start Date End Date Haider Wolf DO PCP - General 01/12/17 Haider Wolf DO [address] [place] [address] Insurance Assigned Provider 07/28/1805/06 documented as of this encounter Additional Source Comments The information contained in this document represents components of the legal health record. It is not the complete legal health record.[facility]
--- OUTSIDE RECORDS SUMMARY | 2025-01-13 19:25 | XMS_ITS | Encounter Summary ---
Author Organization [facility] Address [address] [place] [address] [address] [place] [address] Phone Care Team Providers Care Admissions Counselor Name Role Phone Haider Wolf DO Primary Care Provider [phone] Haider Wolf DO Unavailable Encounter Details Date Type Department Care Team (Latest Contact Info) Description 06/03/2019 Transcribe Orders Virtual Department [address] [place] [address] Filippo Pace MD [address] [place] [address] [email or web address] Abnormal weight loss (Primary Dx) Social History [...] Description 04/02/2025 3:15 PM EST Office Visit [facility] [address] [facility] 3rd Floor, [address] [place] [address] Kyree Castillo MD 22 [facility] [address] [place] [address] [email or web address] documented as of this encounter Results * XR CHEST PA AND LATERAL 2 VIEWS (06/04/2019 10:36 AM EDT) Anatomical Region Laterality Modality Chest Radiographic Nurys ging 06/04/2019 11:0 0 AM EDT Impressions 06/04/2019 11:02 AM EDT No acute pulmonary process. POS: [id number] Narrative 06/04/2019 11:02 AM EDT XR CHEST [...] abnormality. IMPRESSION: No acute pulmonary process. POS: [id number] Filippo Pace MD IMG XR CHEST Final Result documented in this encounter Visit Diagnoses Diagnosis Abnormal weight loss- Primary Loss of weight Abnormal weight loss Loss of weight documented in this encounter Care Teams Admissions Counselor Relationship Specialty Start Date End Date Haider Wolf DO [email or web address] PCP - General 01/12/17 Haider Wolf DO [address] [place] [address] [email or web address] Insurance Assigned Provider 07/28/1805/06 documented as of this encounter Additional Source Comments The information contained in this document represents components of the legal health record. It is not the complete legal health record.[facility]
--- OUTSIDE RECORDS SUMMARY | 2025-01-13 19:26 | XMS_ITS | Clinical Summary ---
Author Organization [facility] Address [address] [place] [address] Phone Care Team Providers Care Shop Supervisor Name Role Phone Fortunato Hawkins DO Primary Care Provider [phone] Allergies Active Allergy Reactions Criticality Noted Date [...] Encounters Date Type Department Care Team Description 12/31/2024 11:30 AM EDT Office Visit [facility] [address] [place] [address] 3rd Floor, [address] [place], [place] [id number] Kyree Castillo MD LESLI on CPAP (Primary Dx) from Last 3 Months Social History Tobacco [...] Sign Reading Time Taken Comments Blood Pressure 108/60 12/31/2024 11:39 AM EDT Pulse 84 12/31/2024 11:39 AM EDT Temperature 36.2 C (97.2 F) 05/03/2024 9:20 AM EST Respiratory Rate 17 05/03/2024 9:34 AM EST Oxygen Saturation 96% 12/31/2024 11:39 AM EDT Inhaled Oxygen Concentration - - Weight 82.6 kg (182 lb) 12/31/2024 11:39 AM EDT Height 172.7 cm (5' 8 ) 12/31/2024 11:39 AM EDT Body Mass Index 27.67 12/31/2024 11:39 AM EDT Plan of Treatment Upcoming Encounters Date Type Department Care Team (Late st Contact Info) Description 04/02/2025 3:15 PM EST Office Visit [facility] [address] [place] [address] 3rd Floor, [address] [place] [address] Kyree Castillo MD 22 [facility], [address] [place] [address] [email or web address] Health Maintenance Due Date Last Done Comments DEPRESSION SCREENING 1975 HEPATITIS C SCREENING 12/09/1981 HIV ONE-TIME SCREENING (18-65 YEARS) 12/09/1981 PNEUMOCOCCAL VACCINES (50+ years) (1 of 2 - PCV) 12/09/1982 COLOGUARD 12/09/2008 FIT TEST 12/09/2008 FOBT 12/09/2008 SIGMOIDOSCOPY 12/09/2008 VIRTUAL COLONOSCOPY 12/09/2008 RSV VACCINE (1 - Risk 50-74 years 1-dose series) 12/09/2013 ZOSTER VACCINES (1 of 2) 12/09/2013 Adult Td,Tdap Booster 11/05/2022 11/05/2012 INFLUENZA VACCINE (#1) 2024 , 01/14/2023, 01/12/2022, Additional history exists COVID-19 VACCINE ( - 2024- season) 2024 04/05/2021, 06/02/2020, 05/11/2020 BLOOD PRESSURE 07/01/2025 12/31/2024 SCREENING FOR DIABETES 10/13/2025 10/13/2022 LIPID PANEL 03/16/2027 03/16/2022, 03/16/2022 COLONOSCOPY 01/29/2031 01/29/2021 COLORECTAL CANCER SCREENING 01/29/2031 SMOKING STATUS SCREENING (Once After 26 Yrs) Completed 12/31/2024 HEPATITIS A VACCINES Aged Out No long [...] 57 Admit Type: Outpatient Gender: Male Room: [facility] Referring MD: FORTUNATO HAWKINS DO Exam Type: [...] monitored continuously. The Olympus adult variable colonoscope [id number] #1was introduced through the anus and advanced [...] 12:19 PM Procedure Code(s): --- Professional --- 97052, Colonoscopy, flexible; diagnostic, including collection of specimen(s) by brushing or washing, when performed (separateprocedure) --- Technical --- 69378, Colonoscopy, flexible; diagnostic, including collection of specimen(s) by brushing or washing, when performed (separateprocedure) Diagnosis Code(s): --- Professional --- Z86.010, Personal history of colonic polyps K57.30, Diverticulosis of large intestine without perforation or abscess without bleeding --- Technical --- Z86.010, Personal history of colonic polyps K57.30, Diverticulosis of large intestine without perforation or abscess without bleeding CPT copyright 2018 [employer]. All rights reserved. The codes documented in this report are preliminary and upon reflow operator reviewmay be revised to meet current compliance requirements. Procedure Date: 01/29/2021 12:19:48 PM [address] [place] [address] us Fortunato A Bigda DO GI PROCEDURE ORDERABLES Final Re sult from Last 3 Months or Most Recently Relevant to Health Maintenance Insurance [facility] OUT OF [facility] OUT [facility] P[facility] OUT [facility] PPO Care Teams Shop Supervisor Relationship Specialty Start Date End Date Fortunato Hawkins DO [email or web address] PCP - General 01/12/17 Additional Source Comments The information contained in this document represents components of the legal health record. It is not the complete legal health record.[facility]
--- OUTSIDE RECORDS SUMMARY | 2025-01-13 19:26 | XMS_ITS | Encounter Summary ---
Author Organization [facility] Address [address] [place] [address] Phone Care Team Providers Care Party Host Name Role Phone Haider Wolf DO Primary Care Provider [phone] JanineHaider christiansen DO Unavailable Encounter Details Date Type Department Care Team (Late st Contact Info) Description 02/12/2019 Procedure Pass [facility] Endoscopy Admitting Dept Virtual Department [address] [place] [address] Social History Tobacco Use Types Packs/Day Years [...] Description 04/02/2025 3:15 PM EST Office Visit [facility] [address] [place] [address] 3rd Floor, [address] [place] [address] Kyree Castillo MD 22 [facility], [address] [address] documented as of this encounter Visit Diagnoses Not on filedocumented in this encounter Care Teams Party Host Relationship Specialty Start Date End Date Haider Wolf DO PCP - General 01/12/17 Haider Wolf DO [address] [place] [address] Insurance Assigned Provider 07/28/1805/06 documented as of this encounter Additional Source Comments The information contained in this document represents components of the legal health record. It is not the complete legal health record.[facility]
--- OUTSIDE RECORDS SUMMARY | 2025-01-13 19:26 | XMS_ITS | Encounter Summary ---
Author Organization [facility] Address [address] [place] [address] Phone Care Team Providers Care Digital Associate Name Role Phone Haider Wolf DO Primary Care Provider [phone] Haider Wolf DO Unavailable Reason for Referral * - Closed Specialty Diagnoses / Procedures Referred By Yunior boyce Referred To Contact Diagnoses Atypical chest pain Procedures Stress Test Exercise Haider Wolf DO Phone: tel: fax: [email or web address] Referral ID Status Reason Start Date Expiration Date Visits Re quested Visits Authorized [id number] Closed 08/06/2018 08/06/2019 1 1 Encounter Details Date Type Department Care Team (Late st Contact Info) Description 08/06/2018 Ancillary Orders Virtual Department [address] [place] [address] Haider Wolf DO 179 [facility] [place] [address] [email or web address] Atypical chest pain Social History Tobacco Use [...] Description 04/02/2025 3:15 PM EST Office Visit [facility] 22 [facility] 3rd Floor, [address] [place] [address] Kyree Castillo MD 22 [facility], [address] [place] [address] [email or web address] documented as of this encounter Results * Stress Test Exercise (08/14/2018 8:49 AM EDT) Max BP Systolic 156 mmHg [facility] Max BP Diastolic 78 mmHg [facility] Max HR 157 BPM [facility] Resting HR 92 BPM [facility] Resting BP Systolic 120 mmHg [facility] Resting BP Diastolic 84 mmHg [facility] Peak METS 10.1 METS [facility] Peak HR 157 BPM [facility] Anatomical Region Laterality Modality Heart Other [...] EKG evidence of ischemia Krupa Berrios NP. us Haider Wolf DO CV STRESS ORDERABLES Final Resul t documented in this encounter Visit Diagnoses Diagnosis Atypical chest pain Other chest pain Atypical chest pain Other chest pain documented in this encounter Care Teams Digital Associate Relationship Specialty Start Date End Date Haider Wolf DO [email or web address] PCP - General 01/12/17 Haider Wolf DO [address] [place] [address] [email or web address] Insurance Assigned Provider 07/28/1805/06 documented as of this encounter Additional Source Comments The information contained in this document represents components of the legal health record. It is not the complete legal health record.[facility]
--- OUTSIDE RECORDS SUMMARY | 2025-01-13 19:26 | XMS_ITS | Encounter Summary ---
Author Organization [facility] Address [address] [place] [address] Phone Care Team Providers Care Lead Inspector Name Role Phone Haider Wolf DO Primary Care Provider [phone] JanineHaider christiansen DO Unavailable Encounter Details Date Type Department Care Team (Late st Contact Info) Description 09/03/2021 Procedure Pass [facility] Endoscopy Admitting Dept Virtual Department [address] [place] [address] Social History Tobacco Use Types Packs/Day Years [...] Description 04/02/2025 3:15 PM EST Office Visit [facility] [address] [place] [address] 3rd Floor, [address] [place] [address] Kyree Castillo MD 22 [facility], [address] [address] documented as of this encounter Visit Diagnoses Not on filedocumented in this encounter Care Teams Lead Inspector Relationship Specialty Start Date End Date Haider Wolf DO PCP - General 01/12/17 Haider Wolf DO [address] [place] [address] Insurance Assigned Provider 07/28/1805/06 documented as of this encounter Additional Source Comments The information contained in this document represents components of the legal health record. It is not the complete legal health record.[facility]
--- OUTSIDE RECORDS SUMMARY | 2025-01-13 19:26 | XMS_ITS | Encounter Summary ---
Author Organization [facility] Address [address] [place] [address] [place] [address] Phone Care Team Providers Care Educational Guidance Counselor Name Role Phone Haider Wolf DO Primary Care Provider [phone] Haider Wolf DO Unavailable Encounter Details Date Type Department Care Team (Late st Contact Info) Description 01/25/2018 Ancillary Orders Virtual Department 30 [place] [address] Criselda Ernestina, TASNEEM [address] Gurpreet Francois. Ortiz. [address] [place] [address] [email or web address] Tachycardia Social History Tobacco Use Types Packs/Day [...] Description 04/02/2025 3:15 PM EST Office Visit [facility] [address] [place] [address] 3rd Floor, [address] [place] [address] Kyree Castillo MD [address] [place] [address], [address] [place] [address] [email or web address] documented as of this encounter Results * Holter Monitor 24 Hours (02/02/2018 12:15 PM EST) Total Beats 124,795 [facility] Ventricular Ectopy Total Beats 1 [facility] Ventricular Ectopy Single Beats 1 [facility] Ventricular Pair 0 [facility] Ventricular Runs 0 [facility] Supraventricular Total Beats 4 [facility] Supraventricular Ectopic Single Beats 4 [facility] Supraventricular Pairs 0 [facility] Supraventricular Runs 0 [facility] Mean Heart Rate 87 BPM [facility] Maximum Heart Rate 129 BPM [facility] Minimum Heart Rate 49 BPM [facility] Longest RR 1.[address] [facility] Anatomical Region Laterality Modality Heart Other [...] tachycardia documented in this encounter Care Teams Educational Guidance Counselor Relationship Specialty Start Date End Date Haider Wolf DO [email or web address] PCP - General 01/12/17 Haider Wolf DO [address] [place] [address] [email or web address] Insurance Assigned Provider 07/28/1805/06 documented as of this encounter Additional Source Comments The information contained in this document represents components of the legal health record. It is not the complete legal health record.[facility]
--- OUTSIDE RECORDS SUMMARY | 2025-01-13 19:26 | XMS_ITS | Encounter Summary ---
Author Organization [facility] Address [address] [place] [address] Phone Care Team Providers Care Highway Technician Name Role Phone Haider Wolf DO Primary Care Provider [phone] Encounter Details Date Type Department Care Team (Late st Contact Info) Description 05/03/2024 Procedure Pass [facility] Endoscopy Admitting Dept Virtual Department [address] [place] [address] Social History Tobacco Use Types Packs/Day Years [...] Description 04/02/2025 3:15 PM EST Office Visit [facility] [address] [place] [address] 3rd Floor, [address] [place] [address] Kyree Castillo MD [address] [place] [address], [address] [address] [email or web address] documented as of this encounter Visit Diagnoses Not on filedocumented in this encounter Care Teams Highway Technician Relationship Specialty Start Date End Date Haider Wolf DO [email or web address] PCP - General 01/12/17 documented as of this encounter Additional Source Comments The information contained in this document represents components of the legal health record. It is not the complete legal health record.[facility]
--- OUTSIDE RECORDS SUMMARY | 2025-01-13 19:26 | XMS_ITS | Encounter Summary ---
Author Organization [facility] Address [address] [place] [address] [place] [address] Phone Care Team Providers Care Boiler Installer Name Role Phone Haider Wolf DO Primary Care Provider [phone] Haider Wolf DO Unavailable Encounter Details Date Type Department Care Team (Latest Contact Info) Description 03/16/2022 Transcribe Orders Virtual Department [address] [place] [address] Lacey Mason PA [address] [place] [address] [place] [address] Left shoulder pain, unspecified chronicity (Primary Dx) [...] Description 04/02/2025 3:15 PM EST Office Visit [facility] [address] [place] [address] 3rd Floor, [address] [place] [address] Kyree Castillo MD 22 [facility], [address] [place] [address] [email or web address] documented as of this encounter Visit Diagnoses Diagnosis Left shoulder pain, unspecified chronicity- Primary documented in this encounter Care Teams Boiler Installer Relationship Specialty Start Date End Date Haider Wolf DO [email or web address] PCP - General 01/12/17 Haider Wolf DO 179 [facility] [place] [address] [email or web address] Insurance Assigned Provider 07/28/1805/06 documented as of this encounter Additional Source Comments The information contained in this document represents components of the legal health record. It is not the complete legal health record.[facility]
--- OUTSIDE RECORDS SUMMARY | 2025-01-13 19:26 | XMS_ITS | Encounter Summary ---
Author Organization [facility] Address [address] [place] [address] Phone Care Team Providers Care Binder Fixer Name Role Phone Haider Wolf DO Primary Care Provider [phone] JanineHaider christiansen DO Unavailable Encounter Details Date Type Department Care Team (Late st Contact Info) Description 11/15/2017 Procedure Pass [facility] Endoscopy Admitting Dept Virtual Department [address] [place] [address] Social History Tobacco Use Types Packs/Day Years [...] Description 04/02/2025 3:15 PM EST Office Visit [facility] [address] [place] [address] 3rd Floor, [address] [place] [address] Kyree Castillo MD 22 [facility], [address] [address] documented as of this encounter Visit Diagnoses Not on filedocumented in this encounter Care Teams Binder Fixer Relationship Specialty Start Date End Date Haider Wolf DO PCP - General 01/12/17 Haider Wolf DO [address] [place] [address] Insurance Assigned Provider 07/28/1805/06 documented as of this encounter Additional Source Comments The information contained in this document represents components of the legal health record. It is not the complete legal health record.[facility]
--- OUTSIDE RECORDS SUMMARY | 2025-01-13 19:26 | XMS_ITS | Encounter Summary ---
Author Organization [facility] Address [address] [place] [address] [place] [address] Phone Care Team Providers Care Factory Laborer Name Role Phone Haider Wolf DO Primary Care Provider [phone] Haider Wolf DO Unavailable Encounter Details Date Type Department Care Team (Latest Contact Info) Description 11/01/2021 Transcribe Orders Virtual Department [address] [place] [address] Lacey aMson PA 6 [facility] [place] [address] [place] [address] Osteoporosis, unspecified osteoporosis type, unspecified pathological fracture [...] Description 04/02/2025 3:15 PM EST Office Visit [facility] [address] [place] [address] 3rd Floor, [address] [place] [address] Kyree Castillo MD [address] [place] [address], [address] [place] [address] [email or web address] documented as of this encounter Results * [...] 3. National Osteoporosis Foundation http://www.nof.org Lacey DALEY IMJeannine BD BONE DENSITY DEXA Fi nal Result documented in this encounter Visit Diagnoses Diagnosis Osteoporosis, unspecified osteoporosis type, unspecified pathological fracture presence- Primary Osteoporosis, unspecified osteoporosis type, unspecified pathological fracture presence documented in this encounter Care Teams Factory Laborer Relationship Specialty Start Date End Date Haider Wolf DO PCP - General 01/12/17 Haider Wolf DO [address] [place] [address] Insurance Assigned Provider 07/28/1805/06 documented as of this encounter Additional Source Comments The information contained in this document represents components of the legal health record. It is not the complete legal health record.[facility]
== END 2025-01-13 15:14 | disposition home or self-care (01) ==
LOC: HO.HMGAL 15:13
PROVIDERS: PCP Internal Medicine; Visit Provider Registered Nurse Emergency
DX: J30.89 Other allergic rhinitis (principal)
CPT/HCPCS: 95117; 95165

== ENCOUNTER 2025-01-27 08:33 | Outpatient (AMB) | payer BC, SELFPAY | END 2025-01-27 08:33 | disposition home or self-care (01) | LOC: HO.HMGAL 08:33 | PROVIDERS: PCP Internal Medicine; Visit Provider Registered Nurse Emergency | DX: J30.89 Other allergic rhinitis (principal) | CPT/HCPCS: 95117; 95165 ==

== ENCOUNTER 2025-02-10 08:27 | Outpatient (AMB) | payer BC, SELFPAY | END 2025-02-10 08:30 | disposition home or self-care (01) | LOC: HO.HMGAL 08:27 | PROVIDERS: PCP Internal Medicine; Visit Provider Registered Nurse Emergency | DX: J30.89 Other allergic rhinitis (principal) | CPT/HCPCS: 95117; 95165 ==

== ENCOUNTER 2025-02-24 08:34 | Outpatient (AMB) | payer BC, SELFPAY ==
--- OUTSIDE RECORDS SUMMARY | 2025-02-24 08:58 | XMS_ITS | Encounter Summary ---
Author Organization [facility] Address [address] [place] [address] [place] [address] Phone Care Team Providers Care File Keeper Name Role Phone Haider Wolf DO Primary Care Provider [phone] Haider Wolf DO Unavailable Encounter Details Date Type Department Care Team (Latest Contact Info) Description 05/27/2019 Transcribe Orders [facility]ila [address] 2nd [place] [address] Filippo Pace MD [address] [address] [email or web address] Loss of weight (Primary Dx); Gastroesophageal reflux [...] Description 04/02/2025 3:15 PM EST Office Visit [facility] [address] [place] [address] 3rd Floor, [address] [place], [place] [id number] Kyree Castillo MD [address] [place] [address], [address] [place] [address] [email or web address] documented as of this encounter Results * TSH (05/27/2019 1:51 PM EST) Pathologist [facility] TSH 1.37 0.27 - 4.20 uIU/mL [facility] Blood 05/27/2019 1:51 PM EST 05/27/2019 1:57 PM EST us Filippo Pace MD LAB BLOOD BKR ORDERABLES Fin al Result [address] [address] * C-Reactive Protein (05/27/2019 1:51 PM EST) [facility] C REACTIVE PROTEIN <0.3 0.0 - 4.0 mg/L [facility] Blood 05/27/2019 1:51 PM EST 05/27/2019 1:57 PM EST us Filippo Pace MD LAB BLOOD BKR ORDERABLES Fin al Result [address] [address] * (ABNORMAL) Comprehensive metabolic panel (05/27/2019 1:51 PM EST) [facility] SODIUM 140 133 - 146 mmol/L [facility] POTASSIUM 3.5 3.3 - 5.1 mmol/L [facility] CHLORIDE 104 96 - 108 mmol/L [facility] CO2 24 21 - 35 mmol/L [facility] BUN 8 6 - 19 mg/dL [facility] CREATININE 1.10 0.5 - 1.5 mg/dL [facility] GLUCOSE 125(H) 70 - 99 mg/dL [facility] ALBUMIN 4.6 3.9 - 4.8 g/dL [facility] TOTAL PROTEIN 7.5 6.5 - 8.0 g/dL [facility] CALCIUM 9.3 8.4 - 10.3 mg/dL [facility] ALKALINE PHOSPHATASE 60 39 - 117 U/L [facility] TOTAL BILIRUBIN 0.6 0.0 - 1.2 mg/dL [facility] AST 34 0 - 37 U/L [facility] ALT 17 0 - 40 U/L [facility] GLOBULIN 2.9 1 - 4.8 g/dL [facility] EGFR 75 >59 mL/min/1.7 3m2 [facility] Comment:If patient is black, multiply result by 1.159. Estimated glomerular filtration rate calculated using the CKD-EPI equation. ANION GAP 16 10 - 20 mmol/L [facility] Blood 05/27/2019 1:51 PM EST 05/27/2019 1:57 PM EST us Filippo Pace MD LAB BLOOD BKR ORDERABLES Fin al Result Performing Organization Address City/State/[facility] Co de Phone Number [address] [address] * CBC (05/27/2019 1:51 PM EST) WBC 5.57 4.00 - 11.00 K/uL [facility] Comment:Note Reference Range updates to all CBC and Differential results. RBC 5.22 4.23 - 5.82 M/uL [facility] HGB 16.3 13.4 - 17.5 g/dL [facility] Comment:Note updated Referen ce Ranges for all CBC and Differential results. HCT 46.5 37.0 - 51.0 % [facility] PLT 289 140 - 430 K/uL [facility] MCV 89.1 78.0 - 97.0 fL [facility] MCH 31.2 25.0 - 33.0 pg [facility] MCHC 35.1 32.0 - 36.0 g/dL [facility] RDW 12.9 11.0 - 15.0 % [facility] MPV 8.5 8.4 - 12.8 fl [facility] NRBC 0.00 0 /100 WBCs [facility] ABSOLUTE NRBC 0.00 0 K/uL [facility] Blood 05/27/2019 1:51 PM EST 05/27/2019 1:57 PM EST us Filippo Pace MD LAB BLOOD BKR ORDERABLES Fin al Result Performing Organization Address [facility] Co de Phone Number [address] [address] * Immunoglobulin A (05/27/2019 1:51 PM EST) IgA 202 70 - 400 mg/dL [facility] Blood 05/27/2019 1:51 PM EST 05/27/2019 1:57 PM EST us Filippo Pace MD LAB BLOOD BKR ORDERABLES Fin al Result Performing Organization Address [facility] de Phone Number [address] [address] * Gliadin deamidated antibody, IgG/IgA (05/27/2019 1:51 PM EST) Gliadin Ab, IGA <10.0 <20.0 (Negative) [facility] GLIADIN AB IGG <10.0 <20.0 (Negative) [facility] Blood 05/27/2019 1:51 PM EST 05/27/2019 1:59 PM EST us Filippo Pace MD LAB BLOOD ORDERABLES Final R esult Performing Organization Address [facility] Co de Phone Number [facility] [address] [place] [address] * Tissue transglutaminase IgA (05/27/2019 1:51 PM EST) TTG IGA ANTIBODY <1.2 <4.0 (Negative) U/mL [facility] [address] Blood 05/27/2019 1:51 PM EST 05/27/2019 1:59 PM EST us Filippo Pace MD LAB BLOOD BKR ORDERABLES Fin al Result [facility] [address] [place] [address] documented in this encounter Visit Diagnoses Diagnosis Loss of weight- Primary Gastroesophageal reflux disease without esophagitis Esophageal reflux documented in this encounter Care Teams File Keeper Relationship Specialty Start Date End Date Haider Wolf DO [email or web address] PCP - General 01/12/17 Haider Wolf DO [address] [place] [address] [email or web address] Insurance Assigned Provider 07/28/1805/06 documented as of this encounter Additional Source Comments The information contained in this document represents components of the legal health record. It is not the complete legal health record.[facility]
--- OUTSIDE RECORDS SUMMARY | 2025-02-24 08:58 | XMS_ITS | Encounter Summary ---
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 Procedures CT Face CHG CT SCAN,MAXILLOFACIAL AREA,W/O CONTRAST CHG CT SCAN, FACE/JAW CONTRAST CHG CT SCANS FACE/JAW COMBO Lacey aMson PA Phone: tel: fax: Referral ID Status Reason Start Date Expiration Date Visits Re quested Visits Authorized [id number] Closed 06/04/2021 07/03/2021 1 1 Encounter Details Date Type Department Care Team (Latest Contact Info) Description 09/25/2020 Transcribe Orders Virtual Department [address] [place] [address] Lacey Mason PA [address] [place] [address] [place] [address] 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 [...] Description 04/02/2025 3:15 PM EST Office Visit [facility] [address] [place] [address] 3rd Floor, [address] [place] [address] Kyree Castillo MD 22 [facility], [address] [place], [place] [id number] [email or web address] documented as of this encounter Results [...] sinus documented in this encounter Care Teams Sugar Cane Farm Manager Relationship Specialty Start Date End Date Haider Wolf DO [email or web address] PCP - General 01/12/17 Haider Wolf DO [address] [place] [address] [email or web address] Insurance Assigned Provider 07/28/1805/06 documented as of this encounter Additional Source Comments The information contained in this document represents components of the legal health record. It is not the complete legal health record.[facility]
--- OUTSIDE RECORDS SUMMARY | 2025-02-24 08:58 | XMS_ITS | Encounter Summary ---
Author Organization [facility] Address [address] [place] [address] [place] [address] Phone Care Team Providers Care Crewman Armoured Personnel Carrier M113 Name Role Phone Haider Wolf DO Primary Care Provider [phone] Haider Wolf DO Unavailable Encounter Details Date Type Department Care Team (Late Contact Info) Description 09/05/2017 Ancillary Orders Virtual Department [address] [place] [address] Criselda Ernestina, TASNEEM [address] Gurp[address] Francois. [address]iz. [address] [place] [address] [email or web address] Other specified disorders of the male [...] Description 04/02/2025 3:15 PM EST Office Visit [facility] [address] [place] [address] 3rd Floor, [address] [place] [address] Kyree Castillo MD [address] [place] [address], [address] [place] [address] [email or web address] documented as of this encounter Results * [...] organs documented in this encounter Care Teams Crewman Armoured Personnel Carrier M113 Relationship Specialty Start Date End Date Haider Wolf DO PCP - General 01/12/17 Haider Wolf DO [address] [place] [address] [email or web address] Insurance Assigned Provider 07/28/1805/06 documented as of this encounter Additional Source Comments The information contained in this document represents components of the legal health record. It is not the complete legal health record.[facility]
--- OUTSIDE RECORDS SUMMARY | 2025-02-24 08:58 | XMS_ITS | Encounter Summary ---
Author Organization [facility] Address [address] [place] [address] Phone Care Team Providers Care Pulverizing And Sifting Operator Name Role Phone Haider Wolf DO Primary Care Provider [phone] JanineHaider christiansen DO Unavailable Encounter Details Date Type Department Care Team (Late st Contact Info) Description 02/14/2017 Procedure Pass [facility] Endoscopy Admitting Dept Virtual Department [address] [place] [address] Social History Tobacco Use Types Packs/Day Years [...] Description 04/02/2025 3:15 PM EST Office Visit [facility] [address] [place] [address] 3rd Floor, [address] [place] [address] Kyree Castillo MD 22 [facility], [address] [address] documented as of this encounter Visit Diagnoses Not on filedocumented in this encounter Care Teams Pulverizing And Sifting Operator Relationship Specialty Start Date End Date Haider Wolf DO PCP - General 01/12/17 Haider Wolf DO [address] [place] [address] Insurance Assigned Provider 07/28/1805/06 documented as of this encounter Additional Source Comments The information contained in this document represents components of the legal health record. It is not the complete legal health record.[facility]
--- OUTSIDE RECORDS SUMMARY | 2025-02-24 08:58 | XMS_ITS | Encounter Summary ---
Author Organization [facility] Address [address] [place] [address] Phone Care Team Providers Care Director Of Instrumental Music Name Role Phone Haider Wolf DO Primary Care Provider [phone] JanineHaider christiansen DO Unavailable Encounter Details Date Type Department Care Team (Late st Contact Info) Description 09/13/2017 Procedure Pass [facility], Ct Scan - [address] [address] Social History Tobacco Use Types Packs/Day Years [...] Description 04/02/2025 3:15 PM EST Office Visit [facility] [address] [place] [address] 3rd Floor, [address] [place] [address] Kyree Castillo MD 22 [facility], [address] [address] documented as of this encounter Visit Diagnoses Not on filedocumented in this encounter Care Teams Director Of Instrumental Music Relationship Specialty Start Date End Date Haider Wolf DO PCP - General 01/12/17 Haider Wolf DO [address] [place] [address] Insurance Assigned Provider 07/28/1805/06 documented as of this encounter Additional Source Comments The information contained in this document represents components of the legal health record. It is not the complete legal health record.[facility]
--- OUTSIDE RECORDS SUMMARY | 2025-02-24 08:58 | XMS_ITS | Encounter Summary ---
Author Organization [facility] Address [address] [place] [address] [place] [address] Phone Care Team Providers Care Shop Teacher Name Role Phone Haider Wolf DO Primary Care Provider [phone] JanineHaider christiansen DO Unavailable Encounter Details Date Type Department Care Team (Late st Contact Info) Description 09/25/2020 Procedure Pass [facility], Ct Scan - [address] [address] Social History Tobacco Use Types Packs/Day Years [...] Description 04/02/2025 3:15 PM EST Office Visit [facility] [address] [place] [address] 3rd Floor, [address] [place] [address] Kyree Castillo MD 22 [facility], [address] [place] [address] documented as of this encounter Visit Diagnoses Not on filedocumented in this encounter Care Teams Shop Teacher Relationship Specialty Start Date End Date Haider Wolf DO [email or web address] PCP - General 01/12/17 Haider Wolf DO [address] [place] [address] [email or web address] Insurance Assigned Provider 07/28/1805/06 documented as of this encounter Additional Source Comments The information contained in this document represents components of the legal health record. It is not the complete legal health record.[facility]
--- OUTSIDE RECORDS SUMMARY | 2025-02-24 08:58 | XMS_ITS | Encounter Summary ---
Author Organization [facility] Address [address] [place] [address] [place] [address] Phone Care Team Providers Care Precision Printing Worker Name Role Phone Haider Wolf DO Primary Care Provider [phone] Haider Wolf DO Unavailable Encounter Details Date Type Department Care Team (Latest Contact Info) Description 03/16/2022 Transcribe Orders Virtual Department [address] [place] [address] Lacey Mason PA [address] [place] [address] [place] [address] Left shoulder pain, unspecified chronicity (Primary Dx) [...] Description 04/02/2025 3:15 PM EST Office Visit [facility] [address] [place] [address] 3rd Floor, [address] [place] [address] Kyree Castillo MD 22 [facility], [address] [place] [address] [email or web address] documented as of this encounter Visit Diagnoses Diagnosis Left shoulder pain, unspecified chronicity- Primary documented in this encounter Care Teams Precision Printing Worker Relationship Specialty Start Date End Date Haider Wolf DO [email or web address] PCP - General 01/12/17 Haider Wolf DO [address] [place] [address] [email or web address] Insurance Assigned Provider 07/28/1805/06 documented as of this encounter Additional Source Comments The information contained in this document represents components of the legal health record. It is not the complete legal health record.[facility]
--- OUTSIDE RECORDS SUMMARY | 2025-02-24 08:58 | XMS_ITS | Encounter Summary ---
Author Organization [facility] Address [address] [place] [address] Phone Care Team Providers Care Finishing Lab Technician Name Role Phone Haider Wolf DO Primary Care Provider [phone] JanineHaider christiansen DO Unavailable Encounter Details Date Type Department Care Team (Late st Contact Info) Description 11/15/2017 Procedure Pass [facility] Endoscopy Admitting Dept Virtual Department [address] [place] [address] Social History Tobacco Use Types Packs/Day Years [...] Description 04/02/2025 3:15 PM EST Office Visit [facility] [address] [place] [address] 3rd Floor, [address] [place] [address] Kyree Castillo MD 22 [facility], [address] [address] documented as of this encounter Visit Diagnoses Not on filedocumented in this encounter Care Teams Finishing Lab Technician Relationship Specialty Start Date End Date Haider Wolf DO [email or web address] PCP - General 01/12/17 Haider Wolf DO [address] [place] [address] [email or web address] Insurance Assigned Provider 07/28/1805/06 documented as of this encounter Additional Source Comments The information contained in this document represents components of the legal health record. It is not the complete legal health record.[facility]
--- OUTSIDE RECORDS SUMMARY | 2025-02-24 08:58 | XMS_ITS | Data Portability ---
Author Organization [facility], Telehealth Patient Home Address [address] [place] [address] Assessment Encounter Date Assessment Date Assessment LastModified by Organization Details LastModified Time 10/03/2022 10/03/2022 The patient denies little pleasure in activities they find enjoyable, feeling depressed, difficulties sleeping, feeling tired or having little energy, change in appetite, feeling guilty, overwhelmed or unmotivated. The patient denies suicidal ideation, thoughts of hurting themselves or others. Their mood is appropriate, they show good judgement and clear understanding of the conversation. They are orientated to time, place and person. They are not expressing any concerning thoughts or actions that would need further investigation and treatment for mental health. [email or web address] Not available 10/03/2022 09:36:33 05/22/2024 05/22/2024 Patient agreed and verbally consents to this audio and video Telehealth appt via a secure platform [email or web address] Not available 05/22/2024 09:21:11 Plan of Treatment Reminders Order Date Submit Date Provider Last Modified By Organization Details Last Modified Time Details Appointments None recorded. Lab CMP, serum or plasma 2023 [facility], [address] [place] [address], [place], [address], 4 11:20:55 CBC w/ auto diff 2023 [facility], [address] [place] [address], [address], 4 11:20:56 lipid panel, blood 2023 [facility], [address] [place] [address], [address], 4 11:20:55 PSA, serum or plasma 2023 024 [facility], [address] [place] [address], [address], 4 11:20:56 hemoglobin A1c, QN, blood 2023 024 [facility], [address] [place] [address], [address], 4 11:20:55 Referral None recorded. Procedures None recorded. Surgeries None recorded. Imaging None recorded. Medication Orders Zithromax Z-Nomi 250 mg tablet 2024 025 [facility]/Pharmacy #[id number], [address] [place], [address], 5 09:28:49 Medrol (Nomi) 4 mg tablets in a dose pack 2024 025 [facility]/Pharmacy #2025, [address] [place], [address], 5 09:28:50 doxycycline hyclate 100 mg tablet 2022 023 [facility] Not available 5 05:01:56 montelukast 10 mg tablet 2022 023 [facility] Not available 3 11:24:57 budesonide 32 mcg/actuati on nasal spray 2022 023 [facility] Not available 3 11:24:55 amlodipine 2.5 mg tablet 2022 023 [facility] Not available 3 11:39:58 alprazolam 1 mg tablet 2022 023 [email or web address] Not available 3 11:02:47 Patient TargetsNo targets recorded. Patient InstructionsNo instructions recorded. Reason for Referral None Reported. Results Created Date Observation Date Name Description Value Unit Range Abnormal Flag Note LastModifiedBy Organization Detail LastModifiedTime 05/26/19 23 05/25/2022 bone densi ty No observ ation record ed. [email or web address] Not Available 2022 13:50:00 Result Notes None recorded. Problems Name Problem SNOMED Code Status Onset Date Resolution Date Notes Provider Name and Address Organization Details Recorded Time Gastroes ophageal reflux disease 758492259 Active 2017 Not Available [facility] 2 14:42:56 Strictur e of esophagu s 84886406 Active 2017 Schatzki Ring Tassoni Not Available [facility] 2 14:42:56 Osteopor osis 83448161 Active 2017 Vit D deficienc y > now with osteopeni a Not Available [facility] 2 14:42:56 Asthma 350068354 Active 2017 Fleitman Not Available [facility] 2 14:42:56 Glaucoma 40468191 Active 2017 Not Available [facility] 2 14:42:56 Serous otitis media 66091083 Active 2017 Chronic Not Available [facility] 2 14:42:56 Allergic rhinitis caused by pollen 38678636 Active 2017 Chronic Not Available [facility] 2 14:42:56 Cervical disc disorder 834344269 Active 2017 Not Available [facility] 2 14:42:56 [facility] hyperten magda 32523806 Active 2020 Not Available [facility] 2 14:42:56 Acute sinusiti s 79874724 Active 2021 THUY FIGUEROA [address] [place], [address], [facility] 2 12:01:46 Spasm 14516809 Active 2021 THUY FIGUEROA [address] [place], [address], [facility] 2 12:10:42 Bilatera l hearing loss 48051863 Active 2021 THUY FIGUEROA [address] [place], [address], [facility] 2 10:44:29 Bilatera l hearing loss 09562784 Active 2021 THUY FIGUEROA [address] [place], [address], [facility] 2 10:44:44 Pain of left shoulder joint 76934742981 790309 Active 2021 THUY FIGUEROA [address] [place], [address], [facility] 2 14:59:16 Anxiety disorder 150188770 Active 2022 THUY FIGUEROA [address] [place] [address], [address], [facility] 3 14:37:39 Patent foramen ovale 202848942 Active 2022 diagnosed about a decade ago THUY FIGUEROA [address] [place], [address], [facility] 3 14:42:57 Allergic rhinitis 88705494 Active 2022 THUY FIGUEROA [address] [place], [address], [facility] 3 11:22:32 Obstruct wang sleep apnea syndrome 30217067 Active 2022 THUY FIGUEROA [address] [place] [address], [address], [facility] 3 09:37:24 Foot callus 938411455 Active 2023 THUY FIGUEROA [address] [place], [address], [facility] 4 16:24:15 Acute otitis media 4552238 Active 2023 Haider Wolf, DO [address] [place], [address], [facility] 4 09:31:06 Bilatera l earache 039439596 Active 2024 THUY FIGUEROA [address] [place], [address], [facility] 5 09:26:22 Notes:Tassoni Problem Notes None recorded. Procedures Surgical History Date Name Laterality Status Provider Name and Address Organization Details Recorded Time hernia repair completed Yakelin Casey NP, [address] [place], [address], [facility] 06/15/2018 16:39:06 Imaging Results None recorded. Procedure Notes None recorded. Medical Equipment None Reported. Allergies Allergen ID Allergen Name Allergen Category Reaction Reaction Severity Criticality Documentation Date Start Date Code Code System Note Provider Name and Address Organization Details Recorded Time 6890 Valium medicatio n Not available Not available Not available 08/29/202244266 2 RxNorm THUY FIGUEROA [address] [place], [address], [facility] 3 11:24:15 97 hypromell ose / naphazoli ne / polysorba te 80 / zinc sulfate medicatio n Not available Not available Not available 05/26/2017 20412 32 RxNorm Any eye [facility] [place] 8 09:42:29 Medications Name Sig Start Date Stop Date Status Note LastModified by Organization Details LastModified Time amoxicillin 500 mg capsule TAKE 1 CAPSULE BY MOUTH EVERY 8 HOURS active Not Available Not Available No t Available budesonide 32 mcg/actuati on nasal spray Take 1 spray every day by nasal route for 30 days. 2022 active Not Available Not Available Not Avai lable latanoprost 0.005 % eye drops INSTILL 1 DROP IN BOTH EYES AT BEDTIME active Not Available Not Available No t Available azithromyci n 250 mg tablet TAKE 2 TABLETS (500 MG) BY ORAL ROUTE ONCE DAILY FOR 1 DAY THEN 1 TABLET (250 MG) BY ORAL ROUTE ONCE DAILY FOR 4 DAYS active Not Available Not Available No t Available alprazolam 1 mg tablet TAKE 1 TABLET BY MOUTH THREE TIMES DAILY FOR 5 DAYS NEEDED 08/29 completed Not Available Not Available Not Available meloxicam 15 mg tablet 06/30 completed Not Available Not Available Not Available famotidine 40 mg tablet TAKE 2 TABLETS BY MOUTH EVERY NIGHT AT BEDTIME 06/14 completed Not Available Not Available Not Available amlodipine 2.5 mg tablet TAKE 1 TABLET BY MOUTH EVERY DAY 2024 active Not Available Not Available Not Avai lable acetaminoph en 300 mg-codeine 30 mg tablet TAKE ONE TAB EVERY 8 HOURS NEEDED FOR BREAKTHRO UGH PAIN active Not Available Not Available No t Available ciprofloxac in 500 mg tablet TAKE 1 TABLET BY MOUTH EVERY 12 HOURS FOR 10 DAYS active Not Available Not Available No t Available amoxicillin 875 mg tablet TAKE 1 TABLET BY MOUTH 2 TIMES A DAY X 7 DAYS, STARTING THE DAY AFTER SURGERY active Not Available Not Available No t Available doxycycline monohydrate 100 mg capsule TAKE 2 CAPSULES BY MOUTH ONCE FOR 1 DOSE. active Not Available Not Available No t Available cephalexin 500 mg capsule Take 1 capsule every 6 hours by oral route for 10 days. 09/04 completed Not Available Not Available Not Available oseltamivir 75 mg capsule Take 1 capsule twice a day by oral route for 5 days. 09/08 completed Not Available Not Available Not Available montelukast 10 mg tablet TAKE 1 TABLET BY MOUTH EVERY DAY active Not Available Not Available No t Available bisacodyl 5 mg tablet,hanna yed release TAKE 4 TABLETS BY MOUTH WITH 8 OZ OF WATER ONCE THE DAY BEFORE THE PROCEDURE 06/14 completed Not Available Not Available Not Available mupirocin 2 % topical ointment APPLY A SMALL AMOUNT TO THE AFFECTED AREA BY TOPICAL ROUTE 3 TIMES PER DAY for 10 days 09/08 completed Not Available Not Available Not Available methylpredn isolone 4 mg tablets in a dose pack use as directed. active Not Available Not Available No t Available albuterol sulfate HFA 90 mcg/actuati on aerosol inhaler INHALE 2 PUFFS INTO THE LUNGS EVERY 4 HOURS NEEDED FOR WHEEZING OR SHORTNESS OF BREATH OR DIFFICULT BREATHING active Not Available Not Available No t Available fluticasone propionate 50 mcg/actuati on nasal spray,suspe nsion SPRAY 1 SPRAY BY NASAL ROUTE TWICE A DAY active Not Available Not Available No t Available doxycycline hyclate 100 mg tablet Take 1 tablet twice a day by oral route as directed for 7 days. 02/10 completed Not Available Not Available Not Available amoxicillin 875 mg-potjayiu m clavulanate 125 mg tablet TAKE 1 TABLET BY MOUTH EVERY 12 HOURS FOR 7 DAYS 09/23 completed Not Available Not Available Not Available oxycodone 5 mg tablet 06/30 completed Not Available Not Available Not Available neomycin-po lymyxin-hyd rocort 3.5 mg-10,000 unit/mL-1 % ear drops,susp INSTILL 4 DROPS INTO AFFECTED EAR(S) BY OTIC ROUTE 3 TIMES PER DAY 10/15 completed Not Available Not Available Not Available Bactrim DS 800 mg-160 mg tablet Take 1 tablet every 12 hours by oral route for 14 days. 06/18 completed Not Available Not Available Not Available chlorhexidi ne gluconate 0.12 % mouthwash RINSE WITH 15 ML, HOLD FOR 30 SECONDS AND EXPECTORA TE TWICE A DAY FOR 7 DAYS START DAY AFTER SURGERY active Not Available Not Available No t Available Pulmicort Flexhaler 180 mcg/actuati on breath activated 1 puff bid 01/24 completed Not Available Not Available Not Available peg 3350-electr olytes 236 gram-22.74 gram-6.74 gram-5.86 gram solution MIX AND DRINK DIRECTED BY OFFICE 03/16 completed Not Available Not Available Not Available M-M-R II (PF) 1,000-12,50 0 TCID50/0.5 mL subcutaneou s solution 09/04 completed Not Available Not Available Not Available Arnuity Ellipta 200 mcg/actuati on powder for inhalation Inhale 1 puff every day by inhalatio n route for 90 days. 03/16 completed Not Available Not Available Not Available ProAir RespiClick 90 mcg/actuati on breath activated Inhale 2 puffs every 4-6 hours by inhalatio n route as needed for 30 days. 03/16 completed Not Available Not Available Not Available Nexium 24HR 20 mg capsule,del ayed release Take 1 capsule every day by oral route. active Not Available Not Available No t Available Wixela Inhub 250 mcg-50 mcg/dose powder for inhalation INHALE 1 DOSE BY MOUTH TWICE DAILY. RINSE MOUTH AFTER USE active Not Available Not Available No t Available Fluarix Quad (PF) 60 mcg (15 mcg x 4)/0.5 mL IM syringe 09/23 completed Not Available Not Available Not Available Fluzone Quad (PF) 60 mcg (15 mcg x 4)/0.5 mL IM syringe ADM 0.5ML IM UTD 09/23 completed Not Available Not Available Not Available Vitals Date Recorded Body height Body mass index (BMI) Body weight Heart rate Oxygen saturation Systolic And Diastolic Provider Name and Address Organization Details Last Updated DateTime 4 171.45 cm 28.1 kg/m2 41220.8 1 g 84 /min 97 % 120/80 mm[Hg] Bethany Otoole [facility] 4 16:00:18 Date Recorded Body height Body mass index (BMI) Body weight Heart rate Oxygen saturation Systolic And Diastolic Provider Name and Address Organization Details Last Updated DateTime 3 171.45 cm 28.2 kg/m2 45909.4 g 67 /min 98 % 120/62 mm[Hg] Bethany Otoole [facility] 3 14:24:05 Date Recorded Body height Body mass index (BMI) Body weight Heart rate Oxygen saturation Systolic And Diastolic Provider Name and Address Organization Details Last Updated DateTime 3 171.45 cm 28.1 kg/m2 90109.8 1 g 96 /min 97 % 130/67 mm[Hg] Bethany Otoole [facility] 3 11:04:45 Date Recorded Body height Body mass index (BMI) Body weight Heart rate Oxygen saturation Systolic And Diastolic Provider Name and Address Organization Details Last Updated DateTime 3 171.45 cm 28.1 kg/m2 95528.8 1 g 96 /min 97 % 120/74 mm[Hg] Bethany Otoole [facility] 3 09:29:42 Social History Question Answer Notes LastModified by Organizat ion Details LastModified Time Tobacco Smoking Status Never Smoker Bethany jackson [facility] 06/14/2022 14:22:39 What Was The Date Of Your Most Recent Tobacco Screening? 05/19/2023 Information not available 05/19/2023 Sex: Unknown Functional Status Question Answer Note LastModified by Organizat ion Details LastModified Time Do you use any illicit or recreational drugs? No [email or web address] Information not available 08/29/2022 Do you or have you ever used any other forms of tobacco or nicotine? No [email or web address] Information not available 10/03/2022 Mental Status None recorded. Family History Nothing Reported. Medical History No medical history recorded. Immunizations Vaccine Type Date Status Note Provider Nam e and Address Organization Details Recorded Time influenza, unspecified formulation 2 completed Not Available [facility] 05/04/2023 17:33:23 Tdap 3 completed Not Available [facility] 05/04/2023 17:33:23 MMR 9 completed Not Available [facility] 05/04/2023 17:33:23 Influenza, split virus, quadrivalent, preservative 9 completed Not Available [facility] 05/04/2023 17:33:23 Influenza, split virus, quadrivalent, preservative 8 completed Not Available [facility] 04/13/2019 02:46:31 COVID-19, mRNA, LNP-S, PF, 30 mcg/0.3 mL dose 1 completed Not Available [facility] 05/04/2023 17:33:23 COVID-19, mRNA, LNP-S, PF, 30 mcg/0.3 mL dose 1 completed Not Available [facility] 05/04/2023 17:33:23 Past Encounters Encounter ID Performer Location Encounter Start Date Encounter Closed Date Diagnosis/Indication Diagnosis SNOMED-CT Code Diagnosis ICD10 Code Diagnosis IMO Codes Diagnosis Note [id number] DO [facility] [address] [facility] [address],[place] [address] 06/30/2017 09:57:25 06/30/2017 10:43:22 Stricture of esophagus 43063198 K22.2 will need repeat egd 2 years Asthma 939258487 J45.90 9 stable thus far better now that esophagiti s is controlled need to cont aggressive tx and will use albut on a prn basis only undrstnds to call if wheezing increases [id number] Haider Wolf [facility] [address] [facility], [place] [address] 09/05/2017 10:36:12 09/05/2017 11:26:31 Asthma 347491862 J45.909 Pelvic and perineal pain 103455010 R10.2 Persistent testicular pain 128214759 N50.89 Epididymitis 38915612 N4 5.1 gc and c unlikely given no new partners in past 10 years, will treat for enteric pathogen and confirm with cultures. [id number] Haider Wolf [facility] [address] [facility], [place] [address] 01/10/2018 09:18:29 01/10/2018 10:29:03 Orchitis and epididymitis 444665861 N45.3 [id number] Haider Wolf [facility] [address] [facility],[place] [address] 01/12/2018 14:56:01 01/12/2018 15:26:27 Administration of influenza vaccine 81024411 Z23 [id number] [facility] [address] [facility],[place] [address] 01/24/2018 15:00:17 01/24/2018 16:47:27 Asthma 374711510 J45.909 stable Essential hypertension 47653852 I10 elevated BP, in pt with typically low-normal BP Headache 37231631 R51 and fatigue when having episodes of tachycardi a Tachycardia 4350204 R00. 0 sinus vs supraventr icular tachy possibly paroxysmal afib [id number] Haider Wolf [facility] [address] [facility],[place] [address] 06/18/2018 11:45:58 06/18/2018 12:16:24 Gastroesophageal reflux disease 546164071 K21.9 Stricture of esophagus 27776945 K22.2 follow w/Dr. Pace Asthma 450619988 J45.[address] Castillo Haider Wolf [facility] [address] [facility] [place] [address] 08/03/2018 15:43:51 08/03/2018 16:18:28 Atypical chest pain 596033414 R07.89 will need to have a ETT performed in order to be completely reassured that this is not cardiac pain in origin i feel this represents a poss spasm of the lower esophagus and this is what is being interprete d as cardiac we will try the low dose amlodipine and see if his sx dissipate but also to go ahead with ETT Cellulitis of lower leg 164302316 L03.119 [id number] Haider Wolf [facility] [address] [facility], [place] [address] 09/04/2018 16:26:04 09/05/2018 08:08:59 Serous otitis media 53907186 H65.91 still no infected so will have him try otc meds and decongest [id number] Haider Wolf [facility] [address] [facility], [place] [address] 05/29/2019 09:38:43 05/29/2019 10:31:13 Influenza 5011572 J11.1 pt has been exposed to people who have the flu at work is experienci ng fever, chills, cough, nasal congestion , rhinorrhea [id number] Haider Wolf [facility] [address] [facility], [place] [address] 09/09/2019 14:01:32 09/09/2019 14:35:33 Atypical chest pain 656202311 R07.89 doing well, BP is excellent Asthma 415546985 J45.90 9 stable Acute otitis media 56412 03 H66.92 has hx of recurrent otitis media due to eustachian tube > has a cyst that blocks the outflow happens more often with allergy season > has not had allergy shots [id number] Haider Wolf [facility] [address] [facility], [place] [address] 04/17/2020 09:24:53 04/17/2020 11:52:59 Acute otitis media 0642265 H66.92 will start patient on both abx and drop with steriod given the severity of his ear infection and fu next week with patient to see how is he doing the patient will also start on probiotic [id number] Haider Wolf [facility] [address] [facility],[address] [place] [address] 09/23/2020 10:13:38 09/23/2020 10:54:51 Acute otitis media 8985852 H66.92 will give second course of z nomi Chronic otitis media 211 73317 H65.04 will submit Altered himanshu wel function 72461577 R19.4 will submit referral for colonoscop y Inguinal pain 750657999 R10.2 will set up with urology for second opinion [id number] Haider Wolf [facility] [address] [facility],[place] [address] 12/21/2020 11:38:13 12/21/2020 15:47:45 Tick bite 69034226 W57.XXXA will treat with doxy [id number] Haider Wolf [facility] [address] [facility], [place] [address] 10/15/2021 10:06:23 10/15/2021 12:14:57 Acute sinusitis 36552977 J01.11 will start on z-nomi Spasm 35664521 R25.2 will send in refill [id number] THUY FIGUEROA [facility] [address] [facility], [place] [address] 10/29/2021 10:34:14 10/29/2021 12:56:17 Bilateral hearing loss 99868990 H90.3 will fu with second opinion with [facility] Osteoporosis 04665542 M8 1.0 will send to new referral to endocrinew ill send new bone density screening Stricture of esophagus 57561523 K22.2 has f/u with Dr. Pace in 6 mos for dilation procedure [id number] Haider Wolf [facility] [address] [facility] [address], [place] [address] 03/16/2022 14:13:32 03/18/2022 10:52:32 Active or passive immunization 433056815 Z23 advised Adult heal th examination 724319811 Z00.00 BP is excellent today Asthma 852562141 J45.20 stabledoin g better with the new medication s Pain of le ft shoulder joint 8355678318 3443094 M25.512 w [id number] Haider Wolf [facility] [address] [facility],[place] [address] 06/14/2022 14:14:59 06/14/2022 16:00:33 Anxiety disorder 324055224 F40.02 will set up with xanax PRN for anxiety and panic related to his putting his dog down Asthma 276897689 J45.20 stabledoin g better with the new medication ssees [facility] pulm group [id number] Haider Wolf [facility] [address] [facility],[place] [address] 08/29/2022 10:45:00 08/29/2022 13:12:43 Allergic rhinitis 88210234 J30.1 agreed to trial montelukas t vs zafirlukas t for the allergies to see if it helps use the CPAP easier agreed to try Spasm 44078193 R25.2 [place] [id number] Haider Wolf [facility] [address] [facility],[place] [address] 10/03/2022 09:24:55 10/03/2022 14:49:16 Allergic rhinitis 92145679 J30.1 doing well on the budesonide and singulair combinatio n Obstructiv e sleep apnea syndrome 75458199 G47.33 has a f/u with Dr. Castillo Tick bite 97025514 W57.X XXA will treat with doxywasn't more than 24 hours and was engorged when he took it out [id number] Haider Wolf [facility] [address] [facility],[place] [address] 05/19/2023 15:45:30 05/22/2023 15:11:51 Adult health examination 590188427 Z00.00 BP is excellent today Foot callus 987195299 L8 4 fifth digit of the left toe, between the fifth and fourth digit [id number] Haider Wolf DO [facility] [address] [facility],[place] [address] 05/22/2024 09:06:47 05/22/2024 09:35:06 Acute sinusitis 54188171 J01.11 will start on z-nomi and medrol Bilateral earache 376766 003 H92.03 can use APAP for any discomfort Health Concerns Section Related Observation LastModified by Organization Detai ls LastModified Time None Recorded Concern Status LastModified by Organization Details LastModified Time None Recorded Advance Directives Directive None Recorded Payers Insurance Date Sequence Insurance Name Policy Number Policy Delaney Covered Member ID Delaney Member ID Guarantor Name 05/18/2023 1 [facility] (O) [id number] [id number] [facility] 05/18/2023 1 [employer] [id number] [facility] [id number] [facility] 05/22/2024 1 [place] [id number] [facility] [id number] [facility] Notes Date Note Type Note Provider Name and Address Organization Details Recorded Time 06/15/19 23 text/htm l ROS as noted in the HPI c/o tailbone pain the patient reports that he slipped getting into his car and feel straight down onto the seatdeveloped tailbone immediately afterwardsdid call about two weeks ago and was advised to monitor pain and functionalitythe patient reports that it is doing fine, only hurts when he sits down on his tailbonediscussed using a pillow to help support the patient's tailboneh/x of osteopenia, stable after last bone density the patient reports that his dog has cancer and will be putting them down next monthagreed to a short course of xanax as needed for anxietywill let me know if it helps or if he needs a dose adjustment THUY FIGUEROA [address] [facility], [place], [address], [facility] 06/14/2022 15:04:58 08/30/19 23 text/htm l ROS as noted in the HPI c/o allergies the patient reports he is having issues with his CPAP machinethe patient typically used to see Dr. Castillo; he was retired and then un-retired and came backhaving issues with communication with him currently since he is only part-time the patient reports that he does snore quite a bit and his ex- notes he stopped breathing a few times the patient is having issues with his CPAP machine per patient due to his post-nasal dripthe patient has a hx of schatzki ring tassoni dilates for him every few months, has been stable the patient reports that he needs to talk to Wes about the pressure, may be too much for the patient since it is breaking the seal (currently a 15 from 7) agreed to trial montelukast and budesonide and will see if this helps THUY FIGUEROA [address] [place], [address], [facility] 08/29/2022 11:41:32 10/04/19 23 text/htm l ROS as noted in the HPI f/u medication the patient did have sun burn on his head so he skipped using his CPAP for a few days the patient did really well on the singulair; works great for his symptoms also helping his sleep at night has a f/u with Dr. Castillothe pt will ask him about adjusting his settings with him since it is causing so complications and he is still having episodes of breathing issues (may need to settings or the actual equipment fixed) had a tick found last nightcouldn't have been in longer than 24 hoursengorged start on doxycycline preventative dose THUY FIGUEROA [address] [facility], [place], [address], [facility] 10/03/2022 09:55:16 05/19/19 24 text/htm l Annual WellnessReported by PatientSocial/Behavioral HistoryFor diet and nutrition, patient reportshealthy diet,discussed vitamin and supplement use,discussed portion control,discussed maintaining calcium balance, anddiscussed diet improvement. For fracture risk, patient reportsno history of fractures,no recent explained fracture,no sudden unexplained fractures, andno previous musculoskeletal injuries. For physical activity, patient reportsexercises on a regular basis,recent increase in physical activity,good physical condition,discussed weightbearing activities, anddiscussed exercise habits. For additional lifestyle factors, patient reportsno tobacco useanddrinks alcohol (mild-moderate).Mental Status:For depression risk, patient reportsnever feels sad, empty, or tearful,no loss of interest in activities,no significant changes in weight,no sleep disturbances or insomnia,no agitation,no loss of energy,no feelings of worthlessness or guilt,no thoughts of suicide,no history of depression, andno history of mood disorders.Functional AbilityFor hearing, patient reportsno loss of hearing. For vision, patient reportsno vision problems. patient is getting 3 to 4 hours of sleep at nightthe patient is getting 12 episodes at night per his recordings sees pulmonology, Dr. Lara having an in facility sleep medicinehas f/u with Anna > will discuss with the new pulmonologistagree with in facility sleep medicine the patient sees GI for his yearly endoscope to dilate his esophagus post nasal is better with the medicationsbudesonide is better has a callous on his pinky toe of his left footdiscussed changing to wider show? THUY FIGUEROA [address] [place] [address], [place], [address], [facility] 05/19/2023 16:31:34 05/22/19 25 text/htm l ROS as noted in the HPI c/o sick, sinus infection The patient is participating in this appointment via telemedicine communication with a phone call/video calling service (Doxy)The patient consents to use of these platforms in place of an in-person appointment due to either sick symptoms the patient is presenting with or current office closure due to COVID exposure in order to keep our office staff and patients safe The patient presents to the office today with concerns of sick symptoms including nasal congestion, headache, ear pain bilaterally The symptoms started originally about a few weeks agoThe patient reports exposure to co-workersThe patient symptoms mainly involves the ear pain, bilaterally Pertinent comorbidities include recurrent acute on chronic sinusitis The patient symptoms are alleviated by restThe patient symptoms are exacerbated by dry air, cold air The patient has tested for COVID-19 and the results was negativedid not test for flu or RSVhas been seen by ENT previously to confirm the sinusitis on imaging, we are aware, still sees them every yearworking with pulm for his sleep apnea currently for getting an updated sleep study THUY FIGUEROA [address] [place] [address], [place], [address], [facility] 05/22/2024 09:29:19
--- OUTSIDE RECORDS SUMMARY | 2025-02-24 08:58 | XMS_ITS | Encounter Summary ---
Author Organization [facility] Address [address] [place] [address] Phone Care Team Providers Care Rn Diabetes Name Role Phone Haider Wolf DO Primary Care Provider [phone] JanineHaider christiansen Unavailable Reason for Referral * MRI/CAT Scan - Closed Specialty Diagnoses / Procedures Referred By Yunior boyce Referred To Contact Radiology Diagnoses RLQ abdominal pain Change in bowel habits Procedures CT Abdomen/Pelvis Filippo Pace MD Phone: tel: fax: [email or web address]:[email or web address] Referral ID Status Reason Start Date Expiration Date Visits Re quested Visits Authorized [id number] Closed 09/13/2017 11/12/2017 1 1 Encounter Details Date Type Department Care Team (Late st Contact Info) Description 09/13/2017 Ancillary Orders Virtual Department 30 [place] [address] Filippo Pace MD [address] [place] [phone] [email or web address] RLQ abdominal pain; Change in bowel habits [...] Description 04/02/2025 3:15 PM EST Office Visit [facility] [address] [place] [address] 3rd Floor, [address] [place] [address] Kyree Castillo MD [address] [facility], [address] [place] [address] [email or web address] documented as of this encounter Results * [...] system documented in this encounter Care Teams Rn Diabetes Relationship Specialty Start Date End Date Haider Wolf DO PCP - General 01/12/17 Haider Wolf DO [address] [place] [address] [email or web address] Insurance Assigned Provider 07/28/1805/06 documented as of this encounter Additional Source Comments The information contained in this document represents components of the legal health record. It is not the complete legal health record.[facility]
--- OUTSIDE RECORDS SUMMARY | 2025-02-24 08:58 | XMS_ITS | Encounter Summary ---
Author Organization [facility] Address [address] [place] [address] [place] [address] Phone Care Team Providers Care Pharmacist Intern Name Role Phone Haider Wolf DO Primary Care Provider [phone] Haider Wolf DO Unavailable Encounter Details Date Type Department Care Team (Latest Contact Info) Description 11/01/2021 Transcribe Orders Virtual Department 30 [place] [address] Lacey Mason PA [address] [facility] [place] [address] [place] [address] Osteoporosis, unspecified osteoporosis type, unspecified pathological fracture [...] Description 04/02/2025 3:15 PM EST Office Visit [facility] [address] [place] [address] 3rd Floor, [address] [place] [address] Kyree Castillo MD [address] [place] [address], [address] [place] [address] [email or web address] documented as of this encounter Results * [...] presence documented in this encounter Care Teams Pharmacist Intern Relationship Specialty Start Date End Date Haider Wolf DO PCP - General 01/12/17 Haider Wolf DO [address] [place] [address] Insurance Assigned Provider 07/28/1805/06 documented as of this encounter Additional Source Comments The information contained in this document represents components of the legal health record. It is not the complete legal health record.[facility]
--- OUTSIDE RECORDS SUMMARY | 2025-02-24 08:58 | XMS_ITS | Encounter Summary ---
Author Organization [facility] Address [address] [place] [address] Phone Care Team Providers Care Photographer Portrait Name Role Phone Haider Wolf DO Primary Care Provider [phone] JanineHaider christiansen DO Unavailable Reason for Referral * MRI/CAT Scan - Closed Specialty Diagnoses / Procedures Referred By Yunior boyce Referred To Contact Radiology Diagnoses Abnormal weight loss Abdominal pain, unspecified abdominal location Procedures CT Abdomen/Pelvis Filippo Pace MD Phone: tel: fax: mailto:[email or web address] Referral ID Status Reason Start Date Expiration Date Visits Re quested Visits Authorized [id number] Closed 06/06/2019 10/03/2019 1 1 Encounter Details Date Type Department Care Team (Latest Contact Info) Description 06/07/2019 Transcribe Orders Virtual Department [address] [place] [address] Filippo Pace MD [address] [place] [phone] [email or web address] GERD without esophagitis (Primary Dx); Abnormal weight [...] Description 04/02/2025 3:15 PM EST Office Visit [facility] [address] [place] [address] 3rd Floor, [address] [place] [address] Kyree Castillo MD 22 [facility], [address] [place] [address] [email or web address] documented as of this encounter Results * [...] CTDIvol: 5.50 mGy POS - [id number] Filippo aPce MD IMG CT ABD/PELVIS Final Resu lt documented in this encounter Visit Diagnoses Diagnosis GERD without esophagitis- Primary Esophageal reflux Abnormal weight loss Loss of weight Abdominal pain, unspecified abdominal location Abnormal weight loss Loss of weight Abdominal pain, unspecified abdominal location documented in this encounter Care Teams Photographer Portrait Relationship Specialty Start Date End Date Haider Wolf DO PCP - General 01/12/17 Haider Wolf DO [address] [place] [address] Insurance Assigned Provider 07/28/1805/06 documented as of this encounter Additional Source Comments The information contained in this document represents components of the legal health record. It is not the complete legal health record.[facility]
--- OUTSIDE RECORDS SUMMARY | 2025-02-24 08:58 | XMS_ITS | Encounter Summary ---
Author Organization [facility] Address [address] [place] [address] Phone Care Team Providers Care Blood Bank Assistant Name Role Phone Haider Wolf DO Primary Care Provider [phone] JanineHaider christiansen DO Unavailable Encounter Details Date Type Department Care Team (Late st Contact Info) Description 01/29/2021 Procedure Pass [facility] Endoscopy Admitting Dept Virtual Department [address] [place] [address] Social History Tobacco Use Types Packs/Day Years [...] Description 04/02/2025 3:15 PM EST Office Visit [facility] [address] [place] [address] [address]rd Floor, [address] [place] [address] Kyree Castillo MD 22 [facility], [address] [address] documented as of this encounter Visit Diagnoses Not on filedocumented in this encounter Care Teams Blood Bank Assistant Relationship Specialty Start Date End Date Haider Wolf DO PCP - General 01/12/17 Haider Wolf DO [address] [place] [address] Insurance Assigned Provider 07/28/1805/06 documented as of this encounter Additional Source Comments The information contained in this document represents components of the legal health record. It is not the complete legal health record.[facility]
--- OUTSIDE RECORDS SUMMARY | 2025-02-24 08:58 | XMS_ITS | Encounter Summary ---
Author Organization [facility] Address [address] [place] [address] [place] [address] Phone Care Team Providers Care Flight Inspector Name Role Phone Haider Wolf DO Primary Care Provider [phone] Haider Wolf DO Unavailable Encounter Details Date Type Department Care Team (Latest Contact Info) Description 09/13/2017 Transcribe Orders [facility] [address] 2nd [place] [address] Filippo Pace MD [address] [address] [email or web address] Bowel habit changes (Primary Dx); Abdominal pain, [...] Description 04/02/2025 3:15 PM EST Office Visit [facility] [address] [place] [address] 3rd Floor, [address] [place], [place] [id number] Kyree Castillo MD [address] [place] [address], [address] [place] [address] [email or web address] documented as of this encounter Results * (ABNORMAL) Urinalysis (09/13/2017 10:50 AM EDT) COLOR Yellow Yellow [facility] CLARITY Clear [facility] GLUCOSE Negative Negative [facility] BILI Negative Negative [facility] KETONES Negative Negative [facility] SPECIFIC GRAVITY 1.020 1.005 - 1.030 [facility] BLOOD Trace(A) Negative [facility] PH 7.0 5.0 - 8.0 [facility] Protein-UA Negative Negative [facility] NITRITE Negative Negative [facility] Leukocyte esterase, ur Negative Negative [facility] Urine (Urine) 09/13/2017 10: 50 AM EDT 09/13/2017 11:12 AM EDT us Filippo Pace MD LAB URINE ORDERABLES Final R esult Performing Organization Address City/[facility]/ZIP Co de Phone Number [address] [address] * C-Reactive Protein (09/13/2017 10:50 AM EDT) Pathologist [facility] C REACTIVE PROTEIN <0.3 0.0 - 4.0 mg/L [facility] Comment:New Reference Range and Measuring Units effective 08/09/17. Blood 09/13/2017 10:5 0 AM EDT 09/13/2017 10:58 AM EDT us Filippo Pace MD LAB BLOOD BKR ORDERABLES Fin al Result Performing Organization Address [facility]/ZIP Co de Phone Number [address] [address] * (ABNORMAL) Comprehensive metabolic panel (09/13/2017 10:50 AM EDT) SODIUM 139 133 - 146 mmol/L [facility] POTASSIUM 4.1 3.3 - 5.1 mmol/L [facility] CHLORIDE 102 96 - 108 mmol/L [facility] CO2 27 21 - 35 mmol/L [facility] BUN 8 6 - 19 mg/dL [facility] CREATININE 1.20 0.5 - 1.5 mg/dL [facility] GLUCOSE 105(H) 70 - 99 mg/dL [facility] ALBUMIN 4.0 3.9 - 4.8 g/dL [facility] TOTAL PROTEIN 6.7 6.5 - 8.0 g/dL [facility] CALCIUM 8.6 8.4 - 10.3 mg/dL [facility] ALKALINE PHOSPHATASE 73 39 - 117 U/L [facility] TOTAL BILIRUBIN 0.4 0.0 - 1.2 mg/dL [facility] AST 22 0 - 37 U/L [facility] ALT 16 0 - 40 U/L [facility] GLOBULIN 2.7 1 - 4.8 g/dL [facility] EGFR 69 >59 mL/min/1.7 3m2 [facility] Comment:If patient is black, multiply result by 1.159. Estimated glomerular filtration rate calculated using the CKD-EPI equation. ANION GAP 14 10 - 20 mmol/L [facility] Blood 09/13/2017 10:5 0 AM EDT 09/13/2017 10:58 AM EDT us Filippo Pace MD LAB BLOOD BKR ORDERABLES Fin al Result Performing Organization Address City/State/[facility] Co de Phone Number [address] [address] * (ABNORMAL) CBC (09/13/2017 10:50 AM EDT) WBC 4.58 3.40 - 11.20 K/uL [facility] RBC 4.92 4.50 - 5.50 M/uL [facility] HGB 15.3 13.0 - 17.0 g/dL [facility] HCT 43.9 40.0 - 51.0 % [facility] PLT 242 130 - 400 K/uL [facility] MCV 89.2 79.0 - 98.0 fL [facility] MCH 31.1 27.0 - 34.8 pg [facility] MCHC 34.9 31.5 - 36.0 g/dL [facility] RDW 12.9 10.8 - 14.6 % [facility] MPV 8.4(L) 9.4 - 12.4 fl [facility] NRBC 0.00 /100 WBCs [facility] ABSOLUTE NRBC 0.00 K/uL [facility] Blood 09/13/2017 10:5 0 AM EDT 09/13/2017 10:58 AM EDT us Filippo Pace MD LAB BLOOD BKR ORDERABLES Fin al Result Performing Organization Address City/State/[facility] Co de Phone Number [facility] [address] [place] [address] documented in this encounter Visit Diagnoses Diagnosis Bowel habit changes- Primary Other symptoms involving digestive system Abdominal pain, right lower quadrant documented in this encounter Care Teams Flight Inspector Relationship Specialty Start Date End Date Haider Wolf DO PCP - General 01/12/17 Haider Wolf DO [address] [place] [address] Insurance Assigned Provider 07/28/1805/06 documented as of this encounter Additional Source Comments The information contained in this document represents components of the legal health record. It is not the complete legal health record.[facility]
--- OUTSIDE RECORDS SUMMARY | 2025-02-24 08:58 | XMS_ITS | Encounter Summary ---
Author Organization [facility] Address [address] [place] [address] Phone Care Team Providers Care Agricultural Engineer Name Role Phone Haider Wolf DO Primary Care Provider [phone] JanineHaider christiansen DO Unavailable Encounter Details Date Type Department Care Team (Late st Contact Info) Description 08/28/2019 Procedure Pass [facility], Ct Scan - [address] [address] Social History Tobacco Use Types Packs/Day Years [...] Description 04/02/2025 3:15 PM EST Office Visit [facility] [address] [place] [address] [address]rd Floor, [address] [place] [address] Kyree Castillo MD 22 [facility], [address] [address] documented as of this encounter Visit Diagnoses Not on filedocumented in this encounter Care Teams Agricultural Engineer Relationship Specialty Start Date End Date Haider Wolf DO PCP - General 01/12/17 Haider Wolf DO [address] [place] [address] Insurance Assigned Provider 07/28/1805/06 documented as of this encounter Additional Source Comments The information contained in this document represents components of the legal health record. It is not the complete legal health record.[facility]
--- OUTSIDE RECORDS SUMMARY | 2025-02-24 08:58 | XMS_ITS | Encounter Summary ---
Author Organization [facility] Address [address] [place] [address] Phone Care Team Providers Care Development Mechanic Name Role Phone Haider Wolf Primary Care Provider [phone] Encounter Details Date Type Department Care Team (Late st Contact Info) Description 05/03/2024 Procedure Pass [facility] Endoscopy Admitting Dept Virtual Department [address] [place] [address] Social History Tobacco Use Types Packs/Day Years [...] Description 04/02/2025 3:15 PM EST Office Visit [facility] [address] [place] [address] 3rd Floor, [address] [place] [address] Kyree Castillo MD [address] [place] [address], [address] [address] [email or web address] documented as of this encounter Visit Diagnoses Not on filedocumented in this encounter Care Teams Development Mechanic Relationship Specialty Start Date End Date Haider Wolf DO [email or web address] PCP - General 01/12/17 documented as of this encounter Additional Source Comments The information contained in this document represents components of the legal health record. It is not the complete legal health record.[facility]
--- OUTSIDE RECORDS SUMMARY | 2025-02-24 08:58 | XMS_ITS | Encounter Summary ---
Author Organization [facility] Address [address] [place] [address] [address] [place] [address] Phone Care Team Providers Care Gasoline Attendant Name Role Phone Haider Wolf DO Primary Care Provider [phone] Haider Wolf DO Unavailable Encounter Details Date Type Department Care Team (Latest Contact Info) Description 06/03/2019 Transcribe Orders Virtual Department [address] [place] [address] Filippo Pace MD [address] [place] [address] [email or web address] Abnormal weight loss (Primary Dx) [...] Description 04/02/2025 3:15 PM EST Office Visit [facility] 22 [facility] 3rd Floor, [address] [place] [address] Kyree Castillo MD 22 [facility] [address] [place] [address] [email or web address] documented as of this encounter Results * XR CHEST PA AND LATERAL 2 VIEWS (06/04/2019 10:36 AM EDT) Anatomical Region Laterality Modality Chest Radiographic Nurys ging 06/04/2019 11:0 0 AM EDT Impressions 06/04/2019 11:02 AM EDT No acute pulmonary process. POS: [id number] Narrative 06/04/2019 11:02 AM EDT XR CHEST [...] abnormality. IMPRESSION: No acute pulmonary process. POS: [id number] Filippo Pace MD IMG XR CHEST Final Result documented in this encounter Visit Diagnoses Diagnosis Abnormal weight loss- Primary Loss of weight Abnormal weight loss Loss of weight documented in this encounter Care Teams Gasoline Attendant Relationship Specialty Start Date End Date Haider Wolf DO [email or web address] PCP - General 01/12/17 Haider Wolf DO [address] [place] [address] [email or web address] Insurance Assigned Provider 07/28/1805/06 documented as of this encounter Additional Source Comments The information contained in this document represents components of the legal health record. It is not the complete legal health record.[facility]
--- OUTSIDE RECORDS SUMMARY | 2025-02-24 08:58 | XMS_ITS | Encounter Summary ---
Author Organization [facility] Address [address] [place] [address] Phone Care Team Providers Care Account Classification Clerk Name Role Phone Haider Wolf DO Primary Care Provider [phone] JanineHaider christiansen DO Unavailable Encounter Details Date Type Department Care Team (Late st Contact Info) Description 09/03/2021 Procedure Pass [facility] Endoscopy Admitting Dept Virtual Department [address] [place] [address] Social History Tobacco Use Types Packs/Day Years [...] Description 04/02/2025 3:15 PM EST Office Visit [facility] [address] [place] [address] 3rd Floor, [address] [place] [address] Kyree Castillo MD 22 [facility], [address] [address] documented as of this encounter Visit Diagnoses Not on filedocumented in this encounter Care Teams Account Classification Clerk Relationship Specialty Start Date End Date Haider Wolf DO PCP - General 01/12/17 Haider Wolf DO [address] [place] [address] Insurance Assigned Provider 07/28/1805/06 documented as of this encounter Additional Source Comments The information contained in this document represents components of the legal health record. It is not the complete legal health record.[facility]
--- OUTSIDE RECORDS SUMMARY | 2025-02-24 08:59 | XMS_ITS | Encounter Summary ---
Author Organization [facility] Address [address] [place] [address] [place] [address] Phone Care Team Providers Care Wood Polisher Name Role Phone Haider Wolf DO Primary Care Provider [phone] Haider Wolf DO Unavailable Encounter Details Date Type Department Care Team (Late st Contact Info) Description 01/25/2018 Ancillary Orders Virtual Department [address] [place] [address] Criselda Ernestina, TASNEEM 54 Gurpreet Francois. Ortiz. [address] [place] [id number] [email or web address] Tachycardia Social History Tobacco Use Types Packs/Day [...] Description 04/02/2025 3:15 PM EST Office Visit [facility] [address] [place] [address] 3rd Floor, [address] [place] [address] Kyree Castillo MD [address] [place] [address], [address] [place] [address] [email or web address] documented as of this encounter Results * Holter Monitor 24 Hours (02/02/2018 12:15 PM EST) Total Beats 124,795 [facility] Ventricular Ectopy Total Beats 1 [facility] Ventricular Ectopy Single Beats 1 [facility] Ventricular Pair 0 [facility] Ventricular Runs 0 [facility] Supraventricular Total Beats 4 [facility] Supraventricular Ectopic Single Beats 4 [facility] Supraventricular Pairs 0 [facility] Supraventricular Runs 0 [facility] Mean Heart Rate 87 BPM [facility] Maximum Heart Rate 129 BPM [facility] Minimum Heart Rate 49 BPM [facility] Longest RR 1.600 [address] [facility] Anatomical Region Laterality Modality Heart Other [...] tachycardia documented in this encounter Care Teams Wood Polisher Relationship Specialty Start Date End Date Haider Wolf DO [email or web address] PCP - General 01/12/17 Haider Wolf DO [address] [place] [id number] [email or web address] Insurance Assigned Provider 07/28/1805/06 documented as of this encounter Additional Source Comments The information contained in this document represents components of the legal health record. It is not the complete legal health record.[facility]
--- OUTSIDE RECORDS SUMMARY | 2025-02-24 08:59 | XMS_ITS | Encounter Summary ---
Author Organization [facility] Address [address] [place] [phone] Phone Care Team Providers Care Master Electrician Name Role Phone Haider Wolf DO Primary Care Provider [phone] Haider Wolf DO Unavailable Reason for Referral * - Closed Specialty Diagnoses / Procedures Referred By Yunior boyce Referred To Contact Diagnoses Atypical chest pain Procedures Stress Test Exercise Haider Wolf DO Phone: tel: fax: [email or web address] Referral ID Status Reason Start Date Expiration Date Visits Re quested Visits Authorized [id number] Closed 08/06/2018 08/06/2019 1 1 Encounter Details Date Type Department Care Team (Late st Contact Info) Description 08/06/2018 Ancillary Orders Virtual Department [address] [place] [address] Haider Wolf DO [address] [facility] [place] [address] [email or web address] Atypical chest pain Social History Tobacco Use [...] Description 04/02/2025 3:15 PM EST Office Visit [facility] [address] [facility] 3rd Floor, [address] [place] [address] Kyree Castillo MD [address] [facility], [address] [place] [address] [email or web address] documented as of this encounter Results * Stress Test Exercise (08/14/2018 8:49 AM EDT) Max BP Systolic 156 mmHg [facility] Max BP Diastolic 78 mmHg [facility] Max HR 157 BPM [facility] Resting HR 92 BPM [facility] Resting BP Systolic 120 mmHg [facility] Resting BP Diastolic 84 mmHg [facility] Peak METS 10.1 METS [facility] Peak HR 157 BPM [facility] Anatomical Region Laterality Modality Heart Other [...] pain documented in this encounter Care Teams Master Electrician Relationship Specialty Start Date End Date Haider Wolf DO [email or web address] PCP - General 01/12/17 Haider Wolf DO [address] [place] [address] Insurance Assigned Provider 07/28/1805/06 documented as of this encounter Additional Source Comments The information contained in this document represents components of the legal health record. It is not the complete legal health record.[facility]
--- OUTSIDE RECORDS SUMMARY | 2025-02-24 08:59 | XMS_ITS | Clinical Summary ---
Author Organization [facility] Address [address] [place] [address] Phone Care Team Providers Care Aircraft Structural Design Engineer Name Role Phone Fortunato Hawkins DO Primary Care Provider [phone] Allergies Active Allergy Reactions Criticality Noted Date Comments Diazepam 10/13/2022 Naphazo Hcl-Hpm-Ps 80-Zn Sulf 05/02/2024 Other Reaction(s): Not available Medications esomeprazole (NEXIUM) 20 MG capsule Take 20 mg by mouth daily before breakfast. Active latanoprost (XALATAN) 0.005 % ophthalmic solution Active multivit-mins no.63/iron/fol ic (M-VIT ORAL) Take by mouth. Activ e ARNUITY ELLIPTA 200 mcg/actuation DsDvIndication s:Asthma,Medic ation refill USE 1 INHALATION ORALLY DAILY 3 each 3 05/12/19 22 Active albuterol 90 mcg/actuation inhaler Inhale 2 puffs into the lungs every 4 (four) hours as needed for wheezing or shortness of breath/dyspnea . 18 g 11 06/09/19 22 Active budesonide (RHINOCORT AQUA) 32 mcg/actuation nasal spray SHAKE LIQUID AND USE 1 SPRAY IN EACH NOSTRIL EVERY DAY 10/15/19 23 Active amLODIPine (NORVASC) 2.5 MG tablet Take 1 tablet by mouth every morning. 04/25/19 25 Active ibuprofen (ADVIL,MOTRIN) 200 MG tablet Take 400 mg by mouth every 6 (six) hours as needed for pain (specific location in comments). Active fluticasone propion-salmet Tiffanie (ADVAIR DISKUS) 250-50 mcg/dose DISKUS INHALE 1 DOSE BY MOUTH TWICE DAILY. RINSE MOUTH AFTER USE Active montelukast (SINGULAIR) 10 mg tablet Take 1 tablet by mouth daily. Active fluticasone propionate (FLONASE) 50 mcg/actuation nasal spray SPRAY 1 SPRAY BY NASAL ROUTE TWICE A DAY 48 mL 3 02/07/20 25 Active fluticasone propionate (FLONASE) 50 mcg/actuation nasal spray 1 spray by Nasal route 2 (two) times a day. 48 g 3 02/13/20 24 025 Discontinued Active Problems Problem Noted Date Diagnosed Date [...] Encounters Date Type Department Care Team Description 02/06/2025 Refill [facility] [address], [address] [place] [address] Kyree Castillo MD Medication Refill 12/31/2024 11:30 AM EDT Office Visit [facility] [address], [address] [place] [address] Kyree Castillo MD LESLI on CPAP (Primary [...] Description 04/02/2025 3:15 PM EST Office Visit [facility] [address] [place] [address] 3rd Floor, [address] [place] [address] Kyree Castillo MD [address] [facility], [address] [place] [address] [email or web address] Health Maintenance Due Date Last Done Comments [...] 10/13/2022 LIPID PANEL 03/16/2027 03/16/2022, 03/16/2022 COLONOSCOPY 01/30/2028 01/29/2021 COLORECTAL CANCER SCREENING 01/30/2028 SMOKING STATUS SCREENING (Once After 26 Yrs) [...] 01/29/2021 12:19 PM EDT Patient Name: Main Sherman Attending MD:: FILIPPO LAURA MD Procedure Date: 01/29/2021 12:19 PM Date of : 1965 Age: 55 Admit Type: Outpatient Gender: Male Room: [place] [address] Referring MD: FORTUNATO HAWKINS DO Exam Type: [...] monitored continuously. The Olympus adult variable colonoscope [id number] #1was introduced through the anus and advanced [...] 12:19 PM Procedure Code(s): --- Professional --- 39411, Colonoscopy, flexible; diagnostic, including collection of specimen(s) by brushing or washing, when performed (separateprocedure) --- Technical --- 97329, Colonoscopy, flexible; diagnostic, including collection of specimen(s) by brushing or washing, when performed (separateprocedure) Diagnosis Code(s): --- Professional --- Z86.010, Personal history of colonic polyps K57.30, Diverticulosis of large intestine without perforation or abscess without bleeding --- Technical --- Z86.010, Personal history of colonic polyps K57.30, Diverticulosis of large intestine without perforation or abscess without bleeding CPT copyright 2018 [employer]. All rights reserved. The codes documented in this report are preliminary and upon snaker driving horses reviewmay be revised to meet current compliance requirements. Procedure Date: 01/29/2021 12:19:48 PM [address] [place] [address] Fortunato Hawkins DO GI PROCEDURE ORDERABLES Final Re sult from Last 3 Months or Most Recently Relevant to Health Maintenance Insurance OUT OF STATE PPO OUT OF [facility] PPO OUT OF STATE PPO CROSS OUT OF STATE PPO CROSS OUT OF [facility] PPO BLUE CROSS OUT OF STATE PPO Care Teams Aircraft Structural Design Engineer Relationship Specialty Start Date End Date Fortunato Hawkins DO [email or web address] PCP - General 01/12/17 Additional Source Comments The information contained in this document represents components of the legal health record. It is not the complete legal health record.[facility]
--- OUTSIDE RECORDS SUMMARY | 2025-02-24 09:00 | XMS_ITS | Encounter Summary ---
Author Organization [facility] Address [address] [place] [address] Phone Care Team Providers Care Naphtha Washing System Operator Name Role Phone Haider Wolf DO Primary Care Provider [phone] JanineHaider christiansen DO Unavailable Encounter Details Date Type Department Care Team (Late st Contact Info) Description 02/12/2019 Procedure Pass [facility] Endoscopy Admitting Dept Virtual Department [address] [place] [address] Social History Tobacco Use Types Packs/Day Years [...] Description 04/02/2025 3:15 PM EST Office Visit [facility] [address] [place] [address] [address]rd Floor, [address] [place] [address] Kyree Castillo MD [address] [facility], [address] [address] documented as of this encounter Visit Diagnoses Not on filedocumented in this encounter Care Teams Naphtha Washing System Operator Relationship Specialty Start Date End Date Haider Wolf DO [email or web address] PCP - General 01/12/17 Haider Wolf DO [address] [place] [address] [email or web address] Insurance Assigned Provider 07/28/1805/06 documented as of this encounter Additional Source Comments The information contained in this document represents components of the legal health record. It is not the complete legal health record.[facility]
== END 2025-02-24 08:35 | disposition home or self-care (01) ==
LOC: HO.HMGAL 08:34
PROVIDERS: PCP Internal Medicine; Visit Provider Registered Nurse Emergency
DX: J30.89 Other allergic rhinitis (principal)
CPT/HCPCS: 95117; 95165

== ENCOUNTER 2025-03-10 08:29 | Outpatient (AMB) | payer BC, SELFPAY | END 2025-03-10 08:29 | disposition home or self-care (01) | LOC: HO.HMGAL 08:29 | PROVIDERS: PCP Internal Medicine; Visit Provider Registered Nurse Emergency | DX: J30.89 Other allergic rhinitis (principal) | CPT/HCPCS: 95117; 95165 ==